=== PATIENT | female | born 1960 | race Caucasian/White ===

== ENCOUNTER 2016-09-26 17:27 | Inpatient (IN) | payer MEDICARE, OTHER ==
[~2016-09-26] VITALS: Ht 152.4 cm; Wt 75.0 kg
[2016-09-26] VITALS (7 sets, daily range): BP systolic 110–126; BP diastolic 68–84; PULSE 91–112; RESP 15–28; TEMP 98.1–98.2; O2SAT 88–96
[~2016-09-26 17:27] MED LIST: ALBU0.08 NEB; ALBUAER3 INH; CYCL1TAB29 PO; DIAZ5TAB PO; DOXY100C PO; FLUT50SP EACH NARE; GABA300C5 PO; HYDR-3533 PO; METF500T PO; PRED20 PO; SIMV40TA PO; SYMB160A INH
[2016-09-26] MEDS ORDERED: methylPREDNISolone SOD SUCC 125 MG/2 ML VIAL IV PUSH ONE (17:45)
[2016-09-26] MEDS ORDERED: SODIUM CHLORIDE 0.9% FLUSH 5 ML FLUSH IVF PRN (17:45)
[2016-09-26] MEDS ORDERED: AZITHROMYCIN 250 MG TAB PO ONE (17:45)
--- NOTE | 2016-09-26 17:58 | PD ---
HPI Chief Complaint: Respiratory Symptoms Time Seen by Provider: 17:40 Travel History International Travel<30 days: No Contact w/Intl Traveler<30days: No Traveled to known affect area: No History of Present Illness HPI This is a 56-year-old female who has a history of asthma who presents to the emergency department with 3 days of increasing shortness of breath, worse with exertion, improved with rest, associated with a productive cough with yellow sputum. She denies any fevers or chills. She says she's been having a lot of pain and discomfort in her chest particularly with coughing. She feels like her chest is tight. She's been using her bronchodilator treatments but they've not been helping. She did recently complete a course of prednisone. She has been intubated in the past in the setting of her asthma. PFSH Past Medical History Hx Anticoagulant Therapy: No Arthritis: Yes Asthma: Yes Blood Disorders: No Cancer: Yes (RT BREAST WITH lumpectomy) Cardiovascular Problems: No High Cholesterol: Yes Chemotherapy: Yes (9 YEARS AGO) Chest Pain: No Cerebrovascular Accident: No Diabetes: No Diminished Hearing: No Endocrine: No Immune Disorder: No Musculoskeletal: No Neurologic: No Respiratory: Yes (ASTHMA) Immunizations Current: Yes Pneumonia: Yes Radiation Therapy: Yes (breast ca) Menopausal: Yes Past Surgical History Abdominal Surgery: Yes (HERNIA REPAIR) Hysterectomy: No Other Surgery: Yes (right lumpectomy) Social History Alcohol Use: No Tobacco Use: No Substance Use: No Allergies-Medications (Allergen,Severity, Reaction): Coded Allergies: Sulfa (Verified Allergy, Severe, SOB, 09/26/16) rash all over body Vibramycin (Verified Allergy, Severe, ANAPHALACTIC, 09/26/16) Morphine (Verified Allergy, Intermediate, vomiting, 09/26/16) Penicillin (Verified Allergy, Intermediate, Rash, 09/26/16) Tetracycline (Verified Allergy, Intermediate, Rash, 09/26/16) Reported Meds & Prescriptions Reported Meds & Active Scripts Active Lortab (Hydrocodone-Acetaminophen) 5-325 Mg Tab 1 Tab PO DAILY PRN Do not fill until September 27, 2016. Gabapentin 300 Mg Cap 300 Mg PO TID Diazepam 5 Mg Tab 5 Mg PO TID PRN Flexeril (Cyclobenzaprine HCl) 10 Mg Tab 5 Mg PO TID PRN Tale 1/2 pill as needed for muscle spasm Metformin (Metformin HCl) 500 Mg Tab 500 Mg PO DAILY With a meal Reported Albuterol Neb (Albuterol Sulfate) 2.5 Mg/3 Ml Neb 2.5 Mg NEB Q4HR NEB While awake Proair Hfa 8.5 GM Inh (Albuterol Sulfate) 90 Mcg/Act Aer 1 Puff INH Q6HR PRN 108 mcg/actuation Fluticasone Nasal [place] 50 Mcg/Act Naspr 50 Mcg EACH NARE 1-2 SPRAYS NA DAILY 50 mcg/spray Simvastatin 40 Mg Tab 40 Mg PO HS Symbicort Inh (Budesonide/Formoterol Fumarate) 160-4.5 Mcg/Act Aero 2 Puff INH Q12HR Review of Systems Except as stated in HPI: all other systems reviewed are Neg Physical Exam Narrative GENERAL:Uncomfortable appearing SKIN: Warm and dry. HEAD: Atraumatic. Normocephalic. EYES: Pupils equal and round. No injection or drainage. ENT: Moist mucous membranes NECK: Trachea midline. CARDIOVASCULAR: Regular rate and rhythm. No murmur appreciated. RESPIRATORY: Tachypneic speaking 2-3 word sentences, diffuse wheezing, poor air movement. GASTROINTESTINAL: Abdomen soft, non-tender, nondistended. MUSCULOSKELETAL: No obvious deformities. NEUROLOGICAL: Awake and alert. No obvious cranial nerve deficits. Moving all extremities. PSYCHIATRIC: Appropriate mood and affect; insight and judgment normal. Data Data Last Documented VS Vital Signs Date Time Temp Pulse Resp B/P Pulse Ox O2 Delivery O2 Flow Rate FiO2 09/26/16 18:43 96 Nasal Cannula 2.50 09/26/16 18:30 24 09/26/16 18:30 120/84 120/75 09/26/16 17:38 110 09/26/16 17:29 98.2 Orders Electrocardiogram (09/26/16 17:45) B-Type Natriuretic Peptide (09/26/16 17:45) Complete Blood Count With Diff (09/26/16 17:45) Comprehensive Metabolic Panel (09/26/16 17:45) Magnesium (Mg) (09/26/16 17:45) Prothrombin Time / Inr (Pt) (09/26/16 17:45) Act Partial Throm Time (Ptt) (09/26/16 17:45) Troponin I (09/26/16 17:45) Chest, Single Ap (09/26/16 17:45) Ecg Monitoring (09/26/16 17:45) Bilateral Bp Monitoring (09/26/16 17:45) Iv Access Insert/Monitor (09/26/16 17:45) Oximetry (09/26/16 17:45) Oxygen Administration (09/26/16 17:45) Sodium Chloride 0.9% Flush (Ns Flush) (09/26/16 17:45) Methylprednisolone So Succ Inj (Solumedr (09/26/16 17:45) Albuterol-Ipratropium Neb (Duoneb Neb) (09/26/16 17:45) Azithromycin (Zithromax) (09/26/16 17:45) Acetamin-Hydrocod 325-5 Mg ([place] 5-325 (09/26/16 18:45) MDM Medical Decision Making Medical Screen Exam Complete: Yes Emergency Medical Condition: Yes Interpretation(s) EKG: Normal sinus rhythm with no ST changes Last 24 hours Impressions Chest X-Ray 09/26/16 8183 Signed Impressions: Service Date/Time: Monday, September 26, 2016 18:02 - CONCLUSION: Trace right base atelectasis. Mild, chronic interstitial disease. Low Almazan MD Differential Diagnosis COPD exacerbation, pneumonia, pneumothorax, pulmonary embolism Narrative Course This is a 56-year-old female who has a history of asthma who presents to the emergency department with shortness of breath. Patient is very tight on initial exam with an oxygen saturation of 88% on room air. She was given serial DuoNeb's, steroids and azithromycin. Labs were obtained which are pending. Patient requires reassessment. I think she is likely going to require admission for COPD exacerbation. Luann Varela MD Sep 26, 2016 17:58
--- NOTE | 2016-09-26 18:10 | RADRPT ---
EXAM DATE/TIME: 09/26/2016 18:02 [facility] COMPARISON: CHEST SINGLE AP, June 03, 2016, 13:19. INDICATIONS : Chest pain. MEDICAL HISTORY : Carcinoma, breast. Asthma. SURGICAL HISTORY : Hernia repair. Right lumpectomy. ENCOUNTER: Initial ACUITY: 1 week PAIN SCORE: 7/10 LOCATION: Bilateral chest FINDINGS: There is trace atelectasis at the right base superimposed on mild, chronic appearing basilar predomin ant interstitial opacities. No dense or confluent consolidation. No pleural effusion or pneumothorax. Heart size stable to within normal limits. CONCLUSION: Trace right base atelectasis. Mild, chronic interstitial disease. Low Almazan MD on September 26, 2016 at 18:08 Board Certified Radiologist. This report was verified electronically.
[2016-09-26] MEDS: RESP: ALBUTEROL 2.5 MG/IPRATROPIUM 0.5 MG NEB (SCH) INH ×4 (18:23→23:51)
[2016-09-26] MEDS ORDERED: ACETAMINOPHEN/HYDROcodone 325 MG/5 MG TAB PO ONE (18:45)
[2016-09-26 19:09] LABS: AUTOMATED NEUTROPHIL # 11.6 TH/MM3 (1.8-7.7); BASOPHIL # 0.1 TH/MM3 (0-0.2); BASOPHIL % 0.4 % (0.0-2.0); EOSINOPHIL # 0.2 TH/MM3 (0-0.4); EOSINOPHIL % 1.3 % (0.0-4.0); HEMO FLAGS DIFF FINAL; LYMPH % 15.6 % (9.0-44.0); LYMPHOCYTE # 2.3 TH/MM3 (1.0-4.8); MEAN CELL VOLUME 83.9 FL (80.0-100.0); MEAN CORPUSCULAR HEMOGLOBIN 26.8 PG (27.0-34.0); MONO % 5.1 % (0.0-8.0); NEUT % 77.6 % (16.0-70.0); PLATELET COUNT 350 TH/MM3 (150-450); RED BLOOD COUNT 4.29 MIL/MM3 (4.00-5.30); RED CELL DISTRIBUTION WIDTH 16.2 % (11.6-17.2)
[2016-09-26 19:15] LABS: APTT (PATIENT) 30.1 SEC (24.3-30.1); INTERNATIONAL NORMALIZED RATIO 0.9 RATIO; PROTHROMBIN TIME - PATIENT 10.4 SEC (9.8-11.6)
[2016-09-26 19:30] LABS: ANION GAP 9 MEQ/L (5-15); AST (GOT) 13 U/L (15-37); BICARBONATE 29.2 MEQ/L (21.0-32.0); BLOOD UREA NITROGEN 24 MG/DL (7-18); CHLORIDE 99 MEQ/L (98-107); GLOMERULAR FILTRATION RATE 50 ML/MIN (>89); MAGNESIUM 1.6 MG/DL (1.5-2.5); POTASSIUM 4.3 MEQ/L (3.5-5.1); SODIUM (NA) 137 MEQ/L (136-145)
[2016-09-26 19:32] LABS: ALKALINE PHOSPHATASE 122 U/L (45-117); ALT (GPT) 16 U/L (10-53); TOTAL BILIRUBIN ADULT 0.1 MG/DL (0.2-1.0)
--- NOTE | 2016-09-26 20:30 | PD ---
Data Data Last Documented VS Vital Signs Date Time Temp Pulse Resp B/P Pulse Ox O2 Delivery O2 Flow Rate FiO2 09/26/16 20:13 103 27 121/78 92 Nasal Cannula 3 09/26/16 17:29 98.2 Orders Electrocardiogram (09/26/16 17:45) B-Type Natriuretic Peptide (09/26/16 17:45) Complete Blood Count With Diff (09/26/16 17:45) Comprehensive Metabolic Panel (09/26/16 17:45) Magnesium (Mg) (09/26/16 17:45) Prothrombin Time / Inr (Pt) (09/26/16 17:45) Act Partial Throm Time (Ptt) (09/26/16 17:45) Troponin I (09/26/16 17:45) Chest, Single Ap (09/26/16 17:45) Ecg Monitoring (09/26/16 17:45) Bilateral Bp Monitoring (09/26/16 17:45) Iv Access Insert/Monitor (09/26/16 17:45) Oximetry (09/26/16 17:45) Oxygen Administration (09/26/16 17:45) Sodium Chloride 0.9% Flush (Ns Flush) (09/26/16 17:45) Methylprednisolone So Succ Inj (Solumedr (09/26/16 17:45) Albuterol-Ipratropium Neb (Duoneb Neb) (09/26/16 17:45) Azithromycin (Zithromax) (09/26/16 17:45) Acetamin-Hydrocod 325-5 Mg ([place] 5-325 (09/26/16 18:45) Admit Order (Ed Use Only) (09/26/16 20:28) Labs Laboratory Tests Test 09/26/16 18:35 White Blood Count 15.0 TH/MM3 Red Blood Count 4.29 MIL/MM3 Hemoglobin 11.5 GM/DL Hematocrit 36.0 % Mean Corpuscular Volume 83.9 FL Mean Corpuscular Hemoglobin 26.8 PG Mean Corpuscular Hemoglobin 32.0 % Concent Red Cell Distribution Width 16.2 % Platelet Count 350 TH/MM3 Mean Platelet Volume 7.8 FL Neutrophils (%) (Auto) 77.6 % Lymphocytes (%) (Auto) 15.6 % Monocytes (%) (Auto) 5.1 % Eosinophils (%) (Auto) 1.3 % Basophils (%) (Auto) 0.4 % Neutrophils # (Auto) 11.6 TH/MM3 Lymphocytes # (Auto) 2.3 TH/MM3 Monocytes # (Auto) 0.8 TH/MM3 Eosinophils # (Auto) 0.2 TH/MM3 Basophils # (Auto) 0.1 TH/MM3 CBC Comment DIFF FINAL Differential Comment Prothrombin Time 10.4 SEC Prothromb Time International 0.9 RATIO Ratio Activated Partial 30.1 SEC Thromboplast Time Sodium Level 137 MEQ/L Potassium Level 4.3 MEQ/L Chloride Level 99 MEQ/L Carbon Dioxide Level 29.2 MEQ/L Anion Gap 9 MEQ/L Blood Urea Nitrogen 24 MG/DL Creatinine 1.12 MG/DL Estimat Glomerular Filtration 50 ML/MIN Rate Random Glucose 99 MG/DL Calcium Level 8.5 MG/DL Magnesium Level 1.6 MG/DL Total Bilirubin 0.1 MG/DL Aspartate Amino Transf 13 U/L (AST/SGOT) Alanine Aminotransferase 16 U/L (ALT/SGPT) Alkaline Phosphatase 122 U/L Troponin I LESS THAN 0.02 NG/ML B-Type Natriuretic Peptide 44 PG/ML Total Protein 7.0 GM/DL Albumin 2.9 GM/DL [facility] Medical Record Reviewed: Yes Supervised Visit with JOCELYNN: No Narrative Course CBC & BMP Diagram 09/26/16 18:35 Albumin 2.9 LFTs grossly unremarkable otherwise Troponin less than 0.02 BNP 44 Last 24 hours Impressions Chest X-Ray 09/26/16 1427 Signed Impressions: Service Date/Time: Monday, September 26, 2016 18:02 - CONCLUSION: Trace right base atelectasis. Mild, chronic interstitial disease. Low Almazan MD Patient will be admitted for oxygen and breathing treatments. Discussed with Dr. Kilpatrick for family medicine residents. Diagnosis Primary Impression: Asthma Qualified Code: J45.909 - Uncomplicated asthma, unspecified asthma severity Additional Impressions: Wheezing Hypoxemia Admitting Information Admitting Physician Requests: Admit Bharat Weaver MD Sep 26, 2016 20:30
--- NOTE | 2016-09-26 21:04 | HHI.HP ---
HPI Service Family Medicine Primary Care Physician Jose Johnson MD Admission Diagnosis Wheezing, Hypoxemia Diagnoses: International Travel<30 Days: No Contact w/Intl Traveler<30days: No Known Affected Area: No History of Present Illness Patient is a 56-year-old female with a PMH significant for asthma and diabetes. Present here today due to shortness of breath that has progressively worsened over the last few days. Patient reports seeing PCP about 4 days ago at which time she was treated with an antibiotic and prednisone for a cough. She continued to have symptoms despite medications. Today when she was picking up items she felt an acute worsening of her SOB. She also endorses chest pain which she describes as a sour feeling in the epigastric region. No radiation. She also endorses diaphoresis and feelings of nausea but without vomiting. However she claims that the symptoms do not occur at the same time. Of note, per review of ED physician's note, patient has a history of requiring intubation but patient denies this. She only reports requiring intubation when she went back for surgery. Review of Systems Constitutional: COMPLAINS OF: Diaphoretic episodes, Fatigue, Chills, DENIES: Change in appetite Ears, nose, mouth, throat: DENIES: Throat pain, Running Nose Respiratory: COMPLAINS OF: Cough, Shortness of breath, DENIES: Hemoptysis, Sputum production Cardiovascular: COMPLAINS OF: Chest pain, DENIES: Palpitations, Lower Extremity Edema, Orthopnea Gastrointestinal: COMPLAINS OF: Nausea, DENIES: Abdominal pain, Diarrhea, Vomiting Genitourinary: COMPLAINS OF: Urinary frequency Musculoskeletal: COMPLAINS OF: Back pain Integumentary: DENIES: Rash Neurologic: DENIES: Headache Past Family Social History Past Medical History Right breast cancer diagnosed in 2006-being followed by Dr. Smith of [facility] Chronic Low Back Pain DM Asthma Neuropathy Past Surgical History Abdominal Hernia repair -3 different hernia repairs Right breast lumpectomy with removal of axillary lymph nodes Appendectomy Throat operation (polyp removal) Repair of a deviated septum Reported Medications Reported Meds & Active Scripts Active Lortab (Hydrocodone-Acetaminophen) 5-325 Mg Tab 1 Tab PO DAILY PRN Do not fill until September 27, 2016. Gabapentin 300 Mg Cap 300 Mg PO TID Diazepam 5 Mg Tab 5 Mg PO TID PRN Flexeril (Cyclobenzaprine HCl) 10 Mg Tab 5 Mg PO TID PRN Tale 1/2 pill as needed for muscle spasm Metformin (Metformin HCl) 500 Mg Tab 500 Mg PO DAILY With a meal Reported Albuterol Neb (Albuterol Sulfate) 2.5 Mg/3 Ml Neb 2.5 Mg NEB Q4HR NEB While awake Proair Hfa 8.5 GM Inh (Albuterol Sulfate) 90 Mcg/Act Aer 1 Puff INH Q6HR PRN 108 mcg/actuation Fluticasone Nasal [place] 50 Mcg/Act Naspr 50 Mcg EACH NARE 1-2 SPRAYS NA DAILY 50 mcg/spray Simvastatin 40 Mg Tab 40 Mg PO HS Symbicort Inh (Budesonide/Formoterol Fumarate) 160-4.5 Mcg/Act Aero 2 Puff INH Q12HR Allergies: Coded Allergies: Sulfa (Verified Allergy, Severe, SOB, 09/26/16) rash all over body Vibramycin (Verified Allergy, Severe, ANAPHALACTIC, 09/26/16) Morphine (Verified Allergy, Intermediate, vomiting, 09/26/16) Penicillin (Verified Allergy, Intermediate, Rash, 09/26/16) Tetracycline (Verified Allergy, Intermediate, Rash, 09/26/16) Family History Mother - at age 95 from natural causes Father - at age 60 from [facility]. Social History Lives with Sister Alcohol: denies Tobacco: denies Illicit: denies Physical Exam Vital Signs Vital Signs Date Time Temp Pulse Resp B/P Pulse Ox O2 Delivery O2 Flow Rate FiO2 09/26/16 20:13 103 27 121/78 92 Room Air 09/26/16 19:37 107 27 93 Nasal Cannula 3 09/26/16 19:36 107 25 110/69 93 Room Air 09/26/16 18:43 96 Nasal Cannula 2.50 09/26/16 18:30 95 Nasal Cannula 2 09/26/16 18:30 24 95 2 09/26/16 18:30 120/84 120/75 09/26/16 17:38 110 28 95 Nasal Cannula 2 09/26/16 17:29 98.2 112 28 117/77 88 Room Air Physical Exam GENERAL: This is a well-nourished female in obvious discomfort. Speaking in short sentences. SKIN: No rashes, ecchymoses or lesions. Cool and dry. EYES: Pupils equal round and reactive. Extraocular motions intact. No scleral icterus. No injection or drainage. ENT: Nose without bleeding, purulent drainage. Throat without erythema, tonsillar hypertrophy or exudate. Uvula midline. Airway patent. NECK:No lymphadenopathy. Supple, nontender, no meningeal signs. CARDIOVASCULAR: Regular rate and rhythm without murmurs, gallops, or rubs. RESPIRATORY: Decreased air movement bilaterally with intermittent expiratory wheezes. No rubs or crackles. GASTROINTESTINAL: Abdomen soft, obese. Mild suprapubic tenderness. No guarding. MUSCULOSKELETAL: Extremities without clubbing, cyanosis, or edema. No calf tenderness. NEUROLOGICAL: Awake and alert. Motor and sensory grossly within normal limits. Normal speech. Laboratory Laboratory Tests Test 09/26/16 18:35 White Blood Count 15.0 Red Blood Count 4.29 Hemoglobin 11.5 Hematocrit 36.0 Mean Corpuscular Volume 83.9 Mean Corpuscular Hemoglobin 26.8 Mean Corpuscular Hemoglobin 32.0 Concent Red Cell Distribution Width 16.2 Platelet Count 350 Mean Platelet Volume 7.8 Neutrophils (%) (Auto) 77.6 Lymphocytes (%) (Auto) 15.6 Monocytes (%) (Auto) 5.1 Eosinophils (%) (Auto) 1.3 Basophils (%) (Auto) 0.4 Neutrophils # (Auto) 11.6 Lymphocytes # (Auto) 2.3 Monocytes # (Auto) 0.8 Eosinophils # (Auto) 0.2 Basophils # (Auto) 0.1 CBC Comment DIFF FINAL Differential Comment Prothrombin Time 10.4 Prothromb Time International 0.9 Ratio Activated Partial 30.1 Thromboplast Time Sodium Level 137 Potassium Level 4.3 Chloride Level 99 Carbon Dioxide Level 29.2 Anion Gap 9 Blood Urea Nitrogen 24 Creatinine 1.12 Estimat Glomerular Filtration 50 Rate Random Glucose 99 Calcium Level 8.5 Magnesium Level 1.6 Total Bilirubin 0.1 Aspartate Amino Transf 13 (AST/SGOT) Alanine Aminotransferase 16 (ALT/SGPT) Alkaline Phosphatase 122 Troponin I LESS THAN 0.02 B-Type Natriuretic Peptide 44 Total Protein 7.0 Albumin 2.9 Result Diagram: 09/26/16183409/26/165 Imaging Last Impressions Chest X-Ray 09/26/16 9945 Signed Impressions: Service Date/Time: Monday, September 26, 2016 18:02 - CONCLUSION: Trace right base atelectasis. Mild, chronic interstitial disease. Low Almazan MD Assessment and Plan Assessment and Plan 56-year-old female with PMH significant for DM, asthma. Admitted for asthma exacerbation. Code Status Full Problem List: (1) Asthma Status: Acute Plan: Presented with acute exacerbation of asthma that was associated with tachypnea and oxygen saturation down to 88% on room air. Symptoms have progressively worsened over one week despite antibiotic and prednisone treatment. Physical exam significant for patient speaking in short sentences and decreased air movement bilaterally on lung exam. Due to this questionable concerned about intubation and patient looking in acute respiratory distress, recommended patient go to the ICU in case intubation is needed. -VBG reassuring with a pH of 7.42. PCO2 of 44 and bicarbonate of 29 -Leukocytosis present but chest x-ray unremarkable -ACS evaluation due to associated chest pain and nausea * cardiac telemetry -D-dimer negative -Patient may need to consider PFTs as an outpatient and/or CT Imaging: * CXR: Trace right base atelectasis. Mild, chronic interstitial disease Medications: * Solu-Medrol 1251 in the ED * Solu-Medrol 40 mg IV q8 * Albuterol and Duonebs * Symbicort * Levaquin (09/27- * Azithromycin 500 mg 1 in ED (2) Hypoxemia Status: Acute Plan: See treatment plan above (3) Urinary hesitancy Status: Acute Plan: Symptoms of UTI including urinary hesitancy and mild suprapubic tenderness. -UA ordered but not yet obtained prior to antibiotics -Antibiotic treatment for respiratory status will also cover UTI. (4) Nutrition, metabolism, and development symptoms Status: Acute Plan: Diet: Diabetic Fluids: None Electrolytes: Unremarkable, continue to monitor DVT prophylaxis: Lovenox GI prophylaxis: Protonix Chronic medical conditions: * Diabetes mellitus: Insulin sliding scale * HLD: Continue on pravastatin * Chronic back pain: Flexeril and [place] * Peripheral neuropathy: Gabapentin Physician Certification 2 Midnight Certification Type: Admission for Inpatient Services Order for Inpatient Services The services are ordered in accordance with Medicare regulations or non- Medicare payer requirements, as applicable. In the case of services not specified as inpatient-only, they are appropriately provided as inpatient services in accordance with the 2-midnight benchmark. Estimated LOS (days): 2 days is the estimated time the patient will need to remain in the hospital, assuming treatment plan goals are met and no additional complications. Post-Hospital Plan: Home Problem Qualifiers (1) Asthma: Qualified Code: J45.909 - Uncomplicated asthma, unspecified asthma severity Day Alonso MD R2 Sep 26, 2016 21:04
[2016-09-26] MEDS ORDERED: ACETAMINOPHEN/HYDROcodone 325 MG/5 MG TAB PO PRN (21:30)
[2016-09-26] MEDS ORDERED: ENALAPRILAT 1.25 MG/ML VIAL IV PRN (22:00)
[2016-09-26] MEDS ORDERED: ONDANSETRON HCL 4 MG/2 ML VIAL IVP PRN (22:00)
[2016-09-26] MEDS ORDERED: NALOXONE HCL 0.4 MG/ML AMP IV PRN (22:00)
[2016-09-26] MEDS ORDERED: SODIUM CHLORIDE 0.9% FLUSH 5 ML FLUSH FLUSH PRN (22:00)
[2016-09-26] MEDS ORDERED: RESP: ALBUTEROL 2.5 MG/3 ML NEB (PRN) INH (22:00)
[2016-09-26] MEDS: ENOXAPARIN SODIUM 40 MG/0.4 ML SYRINGE SQ SCH (22:16)
[2016-09-26 23:19] LABS: BLOOD GAS VENOUS BASE EXCESS 4.3 mmol/L (-2-2); BLOOD GAS VENOUS HCO3 29 mmol/L (22-26); BLOOD GAS VENOUS O2 CONTENT 13.3 Vol % (9.0-17.0); BLOOD GAS VENOUS O2 HGB SAT 75 % (70-76); BLOOD GAS VENOUS PCO2 44 mmHg (44-48); BLOOD GAS VENOUS PO2 43 mmHg (35-40); BLOOD GAS VENOUS pH 7.42 (7.360-7.400); CRITICAL VALUE NO; OXYGEN DEVICE NASAL CANNULA; TEMP CORR TO 98.6
[2016-09-26 23:20] LABS: LITER FLOW 2 L/M; STAT NO
[2016-09-27] VITALS (8 sets, daily range): BP systolic 118–132; BP diastolic 65–82; PULSE 93–115; RESP 18–20; TEMP 97–98.1; O2SAT 91–95
[2016-09-27] MEDS ORDERED: RESP: ALBUTEROL 2.5 MG/3 ML NEB (SCH) INH
[2016-09-27] MEDS ORDERED: ACETAMINOPHEN 325 MG TAB PO PRN (00:15)
[2016-09-27] MEDS ORDERED: NALOXONE HCL 0.4 MG/ML AMP IV PRN (00:15)
[2016-09-27] MEDS: DIAZEPAM 5 MG TAB PO PRN ×3 (00:27→18:31)
[2016-09-27] MEDS ORDERED: GLUCAGON 1 MG/ML VIAL OTHER PRN (01:30)
[2016-09-27] MEDS ORDERED: DEXTROSE 50% IN WATER 50 ML VIAL(D50) IV PUSH PRN (01:30)
[2016-09-27] MEDS: RESP: ALBUTEROL 2.5 MG/IPRATROPIUM 0.5 MG NEB (SCH) INH ×6 (03:48→23:54)
[2016-09-27] MEDS: methylPREDNISolone SOD SUCC 40 MG/1 ML VIAL IV PUSH SCH ×3 (05:38→20:08)
[2016-09-27] MEDS: ACETAMINOPHEN/HYDROcodone 325 MG/10 MG TAB PO PRN ×4 (05:39→20:07)
[2016-09-27] MEDS: INSULIN ASPART SUPPLEMENTAL SCALE SQ SCH ×4 (05:59→20:08)
[2016-09-27 06:13] LABS: BLOOD, URINE NEG (NEG); GLUCOSE,URINE NEG (NEG); KETONE, URINE NEG (NEG); NITRITE,URINE NEG (NEG); PH, URINE 6.5 (5.0-8.5); SQUAMOUS EPITHELIAL CELL URINE 7 /hpf (0-5); TRANSITIONAL EPI CELLS, URINE 7 /hpf; URINE COLOR YELLOW (YELLW/STRAW)
[2016-09-27 06:14] LABS: COMMENT (UR) CULTURE INDICATED; CULTURE IF INDICATED CULTURE INDICATED
[2016-09-27 07:32] LABS: AUTOMATED NEUTROPHIL # 9.3 TH/MM3 (1.8-7.7); BASOPHIL % 0.1 % (0.0-2.0); HEMATOCRIT 36.4 % (35.0-46.0); HEMO FLAGS DIFF FINAL; LYMPHOCYTE # 0.9 TH/MM3 (1.0-4.8); MEAN CELL VOLUME 83.9 FL (80.0-100.0); MEAN CORPUSCULAR HEMOGLOBIN 26.8 PG (27.0-34.0); MEAN CORPUSCULAR HGB CONC 31.9 % (32.0-36.0); MONO % 0.6 % (0.0-8.0); NEUT % 90.3 % (16.0-70.0); PLATELET COUNT 365 TH/MM3 (150-450); RED BLOOD COUNT 4.34 MIL/MM3 (4.00-5.30); RED CELL DISTRIBUTION WIDTH 16.5 % (11.6-17.2); WHITE BLOOD COUNT 10.3 TH/MM3 (4.0-11.0)
[2016-09-27 07:41] LABS: ANION GAP 11 MEQ/L (5-15); BICARBONATE 28.4 MEQ/L (21.0-32.0); BLOOD UREA NITROGEN 21 MG/DL (7-18); CHLORIDE 100 MEQ/L (98-107); GLOMERULAR FILTRATION RATE 52 ML/MIN (>89); POTASSIUM 4.4 MEQ/L (3.5-5.1); SODIUM (NA) 139 MEQ/L (136-145)
[2016-09-27] MEDS: PANTOPRAZOLE SOD 40 MG DELAYED RELEASE TAB PO SCH (09:30)
[2016-09-27] MEDS: GABAPENTIN 300 MG CAP PO SCH ×2 (09:31→20:07)
[2016-09-27] MEDS: LEVOFLOXACIN 750 MG TAB PO SCH (09:31)
[2016-09-27] MEDS: SODIUM CHLORIDE 0.9% FLUSH 5 ML FLUSH FLUSH SCH ×2 (09:31→20:08)
[2016-09-27] MEDS ORDERED: MONTELUKAST SODIUM 10 MG TAB PO ONE (10:00)
--- NOTE | 2016-09-27 10:45 | EKG ---
Date Performed: 09/26/2016 Time Performed: 18:45:47 PTAGE: 56 years EKG: SINUS TACHYCARDIA ABNORMAL RHYTHM ECG Compared to prior tracing no significant change PREVIOUS TRACING : 06/03/2016 13.03 DOCTOR: Otoniel Koch Interpretating Date/Time 09/27/2016 10:43:07
--- NOTE | 2016-09-27 10:46 | EKG ---
Date Performed: 09/27/2016 Time Performed: 05:23:08 PTAGE: 56 years EKG: Sinus rhythm WITH FREQUENT SUPRAVENTRICULAR PREMATURE COMPLEXES ABNORMAL RHYTHM ECG Compared to prior tracing no significant change PREVIOUS TRACING : 09/27/2016 01.03 DOCTOR: Otoniel Koch Interpretating Date/Time 09/27/2016 10:43:29
--- NOTE | 2016-09-27 10:46 | EKG ---
Date Performed: 09/27/2016 Time Performed: 01:03:31 PTAGE: 56 years EKG: Sinus rhythm WITH FREQUENT SUPRAVENTRICULAR PREMATURE COMPLEXES ABNORMAL RHYTHM ECG Compared to prior tracing no significant change PREVIOUS TRACING : 09/26/2016 18.45 DOCTOR: Otoniel Koch Interpretating Date/Time 09/27/2016 10:43:17
[2016-09-27] MEDS: BUDESONIDE-FORMOTEROL 160/4.5 MCG INHALER INH SCH ×2 (11:54→21:00)
--- NOTE | 2016-09-27 12:20 | HHI.HP ---
[facility] Service Family Medicine Primary Care Physician Jose Johnson MD Admission Diagnosis Wheezing, Hypoxemia Diagnoses: (1) Asthma Diagnosis: Principal (2) Hypoxemia Diagnosis: Principal (3) Urinary hesitancy Diagnosis: Principal (4) Nutrition, metabolism, and development symptoms Diagnosis: Principal International Travel<30 Days: No Contact w/Intl Traveler<30days: No Known Affected Area: No History of Present Illness Ms Caldwell is a 56-year-old female with a PMH significant for asthma and diabetes. Present here today due to shortness of breath that has progressively worsened over the last few days. Patient reports seeing PCP about 4 days before admission at which time she was treated with an antibiotic and prednisone for a cough. She continued to have symptoms despite medications. The day of admission when she was picking up items she felt an acute worsening of her SOB. She also endorsed chest pain which she describes as a sour feeling in the epigastric region. No radiation. She also endorsed diaphoresis and feelings of nausea but without vomiting. However she claims that the symptoms do not occur at the same time. Of note, per review of ED physician's note, patient has a history of requiring intubation but patient denies this. She only reports requiring intubation when she went back for surgery. 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 We discussed going to see a new Dr for her allergies as she has had increasing problems over the past months or years since her human resources department supervisor retired. She was using her home nebulizer prior to admission and still felt very SOB so that is what prompted her ED visit and admission. Overnight, the steroids have been helping and she is breathing more comfortably today though still with some SOB she can now speak in full sentences. She does not feel back to her baseline yet. Review of Systems Respiratory: COMPLAINS OF: Shortness of breath Cardiovascular: COMPLAINS OF: Chest pain, DENIES: Syncope Other Constitutional: COMPLAINS OF: Diaphoretic episodes, Fatigue, Chills, DENIES: Change in appetite Ears, nose, mouth, throat: DENIES: Throat pain, Running Nose Respiratory: COMPLAINS OF: Cough, Shortness of breath, DENIES: Hemoptysis, Sputum production Cardiovascular: COMPLAINS OF: Chest pain, DENIES: Palpitations, Lower Extremity Edema, Orthopnea Gastrointestinal: COMPLAINS OF: Nausea, DENIES: Abdominal pain, Diarrhea, Vomiting Genitourinary: COMPLAINS OF: Urinary frequency Musculoskeletal: COMPLAINS OF: Back pain Integumentary: DENIES: Rash Neurologic: DENIES: Headache Past Family Social History Past Medical History Right breast cancer diagnosed in 2006-being followed by Dr. Smith of [facility] Chronic Low Back Pain DM Asthma Neuropathy Past Surgical History Abdominal Hernia repair -3 different hernia repairs Right breast lumpectomy with removal of axillary lymph nodes Appendectomy Throat operation (polyp removal) Repair of a deviated septum Allergies: Coded Allergies: Sulfa (Verified Allergy, Severe, SOB, 09/26/16) rash all over body Vibramycin (Verified Allergy, Severe, ANAPHALACTIC, 09/26/16) Morphine (Verified Allergy, Intermediate, vomiting, 09/26/16) Penicillin (Verified Allergy, Intermediate, Rash, 09/26/16) Tetracycline (Verified Allergy, Intermediate, Rash, 09/26/16) Family History Mother - at age 95 from natural causes Father - at age 60 from [place]. Social History Lives with Sister Alcohol: denies Tobacco: denies Illicit: denies Physical Exam Vital Signs Vital Signs Date Time Temp Pulse Resp B/P Pulse Ox O2 Delivery O2 Flow Rate FiO2 09/27/16 10:07 92 Nasal Cannula 3.00 09/27/16 08:46 98.1 95 18 118/82 91 09/27/16 05:19 98.1 93 20 124/68 95 09/27/16 02:21 93 09/26/16 23:34 98.1 91 20 126/76 93 09/26/16 22:19 96 15 117/68 94 Nasal Cannula 3 09/26/16 20:13 103 27 121/78 92 Nasal Cannula 3 09/26/16 19:37 107 27 93 Nasal Cannula 3 09/26/16 19:36 107 25 110/69 93 Room Air 09/26/16 18:43 96 Nasal Cannula 2.50 09/26/16 18:30 95 Nasal Cannula 2 09/26/16 18:30 24 95 2 09/26/16 18:30 120/84 120/75 09/26/16 17:38 110 28 95 Nasal Cannula 2 09/26/16 17:29 98.2 112 28 117/77 88 Room Air Physical Exam GENERAL: This is a well-nourished female in obvious discomfort on admission. Speaking in short sentences in the ED originally however this am is able to speak normally though not able to walk in the saravia without SOB and still requiring oxygen. SKIN: No rashes, ecchymoses or lesions. Cool and dry. EYES: Pupils equal round and reactive. Extraocular motions intact. No scleral icterus. No injection or drainage. ENT: Nose without bleeding, purulent drainage. Airway patent. NECK:No lymphadenopathy. Supple, nontender, no meningeal signs. CARDIOVASCULAR: Regular rate and rhythm without murmurs, gallops, or rubs. RESPIRATORY: Decreased air movement bilaterally with intermittent expiratory wheezes. No rubs or crackles. Despite overnight treatment she still is not moving air very well but it is adequate at this point GASTROINTESTINAL: Abdomen soft, obese. Mild suprapubic tenderness. No guarding. MUSCULOSKELETAL: Extremities without clubbing, cyanosis, or edema. No calf tenderness. NEUROLOGICAL: Awake and alert. Motor and sensory grossly within normal limits. Normal speech. Laboratory Laboratory Tests Test 09/26/16 09/26/16 09/27/16 09/27/16 18:35 22:35 01:16 05:57 White Blood Count 15.0 10.3 Red Blood Count 4.29 4.34 Hemoglobin 11.5 11.6 Hematocrit 36.0 36.4 Mean Corpuscular Volume 83.9 83.9 Mean Corpuscular Hemoglobin 26.8 26.8 Mean Corpuscular Hemoglobin 32.0 31.9 Concent Red Cell Distribution Width 16.2 16.5 Platelet Count 350 365 Mean Platelet Volume 7.8 7.6 Neutrophils (%) (Auto) 77.6 90.3 Lymphocytes (%) (Auto) 15.6 9.0 Monocytes (%) (Auto) 5.1 0.6 Eosinophils (%) (Auto) 1.3 0.0 Basophils (%) (Auto) 0.4 0.1 Neutrophils # (Auto) 11.6 9.3 Lymphocytes # (Auto) 2.3 0.9 Monocytes # (Auto) 0.8 0.1 Eosinophils # (Auto) 0.2 0.0 Basophils # (Auto) 0.1 0.0 CBC Comment DIFF FINAL DIFF FINAL Differential Comment Prothrombin Time 10.4 Prothromb Time International 0.9 Ratio Activated Partial 30.1 Thromboplast Time Sodium Level 137 139 Potassium Level 4.3 4.4 Chloride Level 99 100 Carbon Dioxide Level 29.2 28.4 Anion Gap 9 11 Blood Urea Nitrogen 24 21 Creatinine 1.12 1.08 Estimat Glomerular Filtration 50 52 Rate Random Glucose 99 181 Calcium Level 8.5 9.0 Magnesium Level 1.6 Total Bilirubin 0.1 Aspartate Amino Transf 13 (AST/SGOT) Alanine Aminotransferase 16 (ALT/SGPT) Alkaline Phosphatase 122 Troponin I LESS THAN 0.02 LESS THAN 0.02 LESS THAN 0.02 B-Type Natriuretic Peptide 44 Total Protein 7.0 Albumin 2.9 Blood Gas Puncture Site Blood Gas Patient Temperature 98.6 Venous Blood pH 7.42 Venous Blood Partial Pressure 44 CO2 Venous Blood Partial Pressure 43 O2 Venous Blood HCO3 29 Venous Blood Oxygen Saturation 75 Venous Blood Oxygen Content 13.3 Venous Blood Base Excess 4.3 Oxygen Delivery Device NASAL CANNULA Blood Gas Liter Flow 2 D-Dimer Quantitative (PE/DVT) 0.21 Test 09/27/16 06:00 Urine Color YELLOW Urine Turbidity HAZY Urine pH 6.5 Urine Specific [place] 1.014 Urine Protein NEG Urine Glucose (UA) NEG Urine Ketones NEG Urine Occult Blood NEG Urine Nitrite NEG Urine Bilirubin NEG Urine Urobilinogen LESS THAN 2.0 Urine Leukocyte Esterase LARGE Urine RBC 8 Urine WBC 63 Urine Squamous Epithelial 7 Cells Urine Transitional Epithelial 7 Cells Urine Amorphous Sediment RARE Microscopic Urinalysis Comment CULTURE INDICATED Date/Time Procedure Status Source Growth 09/27/16 06:00 Urine Culture Received Urine Clean Catch Pending Result Diagram: 09/27/16 0557 09/27/16 0557 Imaging Last Impressions Chest X-Ray 09/26/16 7119 Signed Impressions: Service Date/Time: Monday, September 26, 2016 18:02 - CONCLUSION: Trace right base atelectasis. Mild, chronic interstitial disease. Low Almazan MD Assessment and Plan Assessment and Plan 56-year-old female with PMH significant for DM, asthma. Admitted for asthma exacerbation. Problem List: (1) Asthma Status: Acute Plan: Presented with acute exacerbation of asthma that was associated with tachypnea and oxygen saturation down to 88% on room air. Symptoms have progressively worsened over one week despite antibiotic and prednisone treatment. Physical exam significant for patient speaking in short sentences and decreased air movement bilaterally on lung exam on admission. Due to this questionable concerned about intubation and patient looking in acute respiratory distress, recommended patient go to the ICU in case intubation is needed. However, she turned around with steroids and is improved this am where she will not need to be intubated -VBG reassuring with a pH of 7.42. PCO2 of 44 and bicarbonate of 29 -Leukocytosis present but chest x-ray unremarkable -ACS evaluation due to associated chest pain and nausea * cardiac telemetry -D-dimer negative -Patient may need to consider PFTs as an outpatient and/or CT, consider peak flow Imaging: * CXR: Trace right base atelectasis. Mild, chronic interstitial disease Medications: * Solu-Medrol 1251 in the ED * Solu-Medrol 40 mg IV q8 * Albuterol and Duonebs * Symbicort * Levaquin (09/27- * Azithromycin 500 mg 1 in ED * can add additional meds for allergy/asthma like singulair * discussed consideration of going to human resources department supervisor as an outpt, she was doing better in the past (2) Hypoxemia Status: Acute Plan: See treatment plan above (3) Urinary hesitancy Status: Acute Plan: Symptoms of UTI including urinary hesitancy and mild suprapubic tenderness. -UA ordered but not yet obtained prior to antibiotics -Antibiotic treatment for respiratory status will also cover UTI. (4) Nutrition, metabolism, and development symptoms Status: Acute Plan: Diet: Diabetic Fluids: None Electrolytes: Unremarkable, continue to monitor DVT prophylaxis: Lovenox GI prophylaxis: Protonix Chronic medical conditions: * Diabetes mellitus: Insulin sliding scale * HLD: Continue on pravastatin * Chronic back pain: Flexeril and [place] * Peripheral neuropathy: Gabapentin Physician Certification 2 Midnight Certification Type: Admission for Inpatient Services Order for Inpatient Services The services are ordered in accordance with Medicare regulations or non- Medicare payer requirements, as applicable. In the case of services not specified as inpatient-only, they are appropriately provided as inpatient services in accordance with the 2-midnight benchmark. Estimated LOS (days): 3 3 days is the estimated time the patient will need to remain in the hospital, assuming treatment plan goals are met and no additional complications. Post-Hospital Plan: Home Problem Qualifiers (1) Asthma: Qualified Code: J45.901 - Asthma with acute exacerbation, unspecified asthma severity Kirti Magallon MD Sep 27, 2016 12:20
[2016-09-27] MEDS: CYCLOBENZAPRINE HCL 10 MG TAB PO PRN (18:31)
[2016-09-27] MEDS: ENOXAPARIN SODIUM 40 MG/0.4 ML SYRINGE SQ SCH (20:07)
[2016-09-27] MEDS: PRAVASTATIN SOD 80 MG TAB PO SCH (20:07)
[2016-09-28] VITALS (11 sets, daily range): BP systolic 109–154; BP diastolic 65–83; PULSE 103–119; RESP 18–20; TEMP 97.2–98.9; O2SAT 93–97
[2016-09-28] MEDS: ACETAMINOPHEN/HYDROcodone 325 MG/10 MG TAB PO PRN ×4 (00:46→19:58)
[2016-09-28] MEDS: RESP: ALBUTEROL 2.5 MG/IPRATROPIUM 0.5 MG NEB (SCH) INH ×4 (03:37→20:11)
[2016-09-28] MEDS: DIAZEPAM 5 MG TAB PO PRN ×3 (05:14→21:49)
[2016-09-28] MEDS: methylPREDNISolone SOD SUCC 40 MG/1 ML VIAL IV PUSH SCH (05:14)
[2016-09-28] MEDS: INSULIN ASPART SUPPLEMENTAL SCALE SQ SCH ×4 (06:01→19:59)
--- NOTE | 2016-09-28 08:06 | HHI.FPPN ---
Subjective Remarks Patient seen this morning. No acute events overnight. Did have 2L O2 requirement overnight to maintain sats in the low-to-mid 90s. She reports moderate improvement of SOB. Breathing is still not at baseline. She thinks she will require another day. No chest pain or palpitations. Denies any fever or chills. (Jarvis Miranda MD R3) Objective Vitals Vital Signs Date Time Temp Pulse Resp B/P Pulse Ox O2 Delivery O2 Flow Rate FiO2 09/28/16 07:44 96 Nasal Cannula 2.00 09/28/16 05:14 16 09/28/16 04:06 98.9 103 20 121/65 93 09/28/16 00:52 109 09/28/16 00:05 97.2 109 20 122/66 96 09/27/16 20:18 93 Nasal Cannula 2.00 09/27/16 19:38 97.6 112 20 125/79 94 09/27/16 16:00 97.0 115 18 132/65 92 09/27/16 12:00 97.1 102 18 129/71 93 09/27/16 10:07 92 Nasal Cannula 3.00 09/27/16 08:46 98.1 95 18 118/82 91 I/O 09/27/16 09/27/16 09/27/16 09/28/16 09/28/16 09/28/16 07:00 15:00 23:00 07:00 15:00 23:00 Intake Total 320 ml 480 ml Balance 320 ml 480 ml Intake Oral 320 ml 480 ml # Voids 1 2 2 # Bowel Movements 0 (Jarvis Miranda MD R3) Result Diagram: 09/27/16 0557 09/27/16 0557 Objective Remarks GENERAL: This is a well-nourished female in obvious discomfort on admission. Receiving breathing treatment at present. Sating in the mid-90s on 2L NC. SKIN: No rashes, ecchymoses or lesions. Cool and dry. EYES: Pupils equal round and reactive. Extraocular motions intact. No scleral icterus. No injection or drainage. ENT: Nose without bleeding, purulent drainage. Airway patent. NECK:No lymphadenopathy. Supple, nontender, no meningeal signs. CARDIOVASCULAR: Regular rate and rhythm without murmurs, gallops, or rubs. RESPIRATORY: Improved air movement, especially at the bases. Expiratory wheezes throughout, more pronounced compared to yesterday. No other adventitious sounds. GASTROINTESTINAL: Abdomen soft, obese. Mild suprapubic tenderness. No guarding. MUSCULOSKELETAL: Extremities without clubbing, cyanosis, or edema. No calf tenderness. 4/5 upper extremity strength. Needs assistance to rise to seated position. NEUROLOGICAL: Awake and alert. Motor and sensory grossly within normal limits. Normal speech. (Jarvis Miranda MD R3) A/P Assessment and Plan 56-year-old female with PMH significant for DM, asthma. Admitted for asthma exacerbation. Now with improving SOB on duoneb and IV steroids. Discharge Planning Likely DC home tomorrow. Will reevaluate this afternoon. Patient is weak and may need HH with PT. Will f/u PT this morning. Will discuss with Dr. Magallon. (Jarvis Miranda MD R3) Attending Attestation Patient seen and examined. Case reviewed and discussed with the resident team. Agree with plan of care as discussed with me and documented in the resident note. Improving slowly. (Kirti Magallon MD) Problem List: (1) Asthma Status: Acute Plan: Improving. VBG reassuring with normal pH. Leukocytosis on admission, now resolved. CXR normal. ACS r/o negative. -on solumedrol. Change to PO prednisone at this time. -cont duoneg q4 SUYAPA with accuneb PRN -cont levaquin (09/27-). Plan 7 day course. -singulair -symbicort at DC. Add pulmicort to start tonight. 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 UA is suspicious for UTI with large LE. -add azo for dysuria -f/u urine cx -cont levaquin. Change abx if indicated by urine cx. (3) Nutrition, metabolism, and development symptoms Status: Acute Plan: Diet: Diabetic Fluids: None Electrolytes: Unremarkable, continue to monitor DVT prophylaxis: Lovenox GI prophylaxis: Protonix Chronic medical conditions: * Diabetes mellitus: Insulin sliding scale * HLD: Continue on pravastatin * Chronic back pain: Flexeril and [place] * Peripheral neuropathy: Gabapentin (Jarvis Miranda MD R3) Problem Qualifiers (1) Asthma: Qualified Code: J45.901 - Asthma with acute exacerbation, unspecified asthma severity Jarvis Miranda MD R3 Sep 28, 2016 08:06 Kirti Magallon MD Sep 28, 2016 13:06
[2016-09-28] MEDS: GABAPENTIN 300 MG CAP PO SCH ×2 (08:22→19:58)
[2016-09-28] MEDS: LEVOFLOXACIN 750 MG TAB PO SCH (08:22)
[2016-09-28] MEDS: SODIUM CHLORIDE 0.9% FLUSH 5 ML FLUSH FLUSH SCH ×2 (08:22→19:58)
[2016-09-28] MEDS: PANTOPRAZOLE SOD 40 MG DELAYED RELEASE TAB PO SCH (08:22)
[2016-09-28] MEDS ORDERED: PHENAZOPYRIDINE HCL 200 MG TAB PO PRN (08:30)
[2016-09-28] MEDS: predniSONE 20 MG TAB PO SCH (09:04)
[2016-09-28] MEDS: BUDESONIDE-FORMOTEROL 160/4.5 MCG INHALER INH SCH ×2 (09:04→20:01)
[2016-09-28] MEDS: PRAVASTATIN SOD 80 MG TAB PO SCH (19:58)
[2016-09-28] MEDS: MONTELUKAST SODIUM 10 MG TAB PO SCH (19:58)
[2016-09-28] MEDS: ENOXAPARIN SODIUM 40 MG/0.4 ML SYRINGE SQ SCH (20:02)
[2016-09-28] MEDS: RESP: BUDESONIDE 0.5 MG/2 ML NEB NEB SCH (20:11)
[2016-09-28] MEDS ORDERED: traZODone HCL 50 MG TAB PO PRN (22:00)
[2016-09-29] MEDS: RESP: ALBUTEROL 2.5 MG/IPRATROPIUM 0.5 MG NEB (SCH) INH ×6 (00:17→20:13)
[2016-09-29 00:21] VITALS: O2SAT 99
[2016-09-29] MEDS: ACETAMINOPHEN/HYDROcodone 325 MG/10 MG TAB PO PRN ×3 (00:51→15:52)
[2016-09-29] MEDS: CYCLOBENZAPRINE HCL 10 MG TAB PO PRN ×2 (03:08→20:39)
[2016-09-29 03:51] VITALS: BP 126/76; PULSE 100; RESP 20; TEMP 97.6; O2SAT 96
[2016-09-29] MEDS: INSULIN ASPART SUPPLEMENTAL SCALE SQ SCH ×4 (06:04→20:39)
[2016-09-29 07:09] VITALS: BP 126/82; PULSE 103; RESP 20; TEMP 97.5; O2SAT 96
--- NOTE | 2016-09-29 08:17 | HHI.FPPN ---
Subjective Remarks Patient seen this morning. No acute events overnight. Vitals this AM essentially WNL. Patient states breathing is approaching her baseline. She feels she need another day before DC. Feels weak. This is new for her. She is walking with physical therapy, but otherwise staying in bed. No fever or chills. No nausea or vomiting. (Jarvis Miranda MD R3) Objective Vitals Vital Signs Date Time Temp Pulse Resp B/P Pulse Ox O2 Delivery O2 Flow Rate FiO2 09/29/16 07:09 97.5 103 20 126/82 96 09/29/16 03:51 97.6 100 20 126/76 96 09/29/16 02:04 16 09/29/16 00:21 99 3.00 09/28/16 23:55 97.6 108 20 154/83 97 09/28/16 20:11 95 Nasal Cannula 2.00 09/28/16 19:30 98.0 119 20 109/69 95 09/28/16 15:36 98.2 109 18 119/67 95 09/28/16 12:06 97.7 109 20 115/74 94 09/28/16 08:48 111 (Jarvis Miranda MD R3) Result Diagram: 09/27/16 0557 09/27/16 0557 Objective Remarks GENERAL: This is a well-nourished female in obvious discomfort on admission. Receiving breathing treatment at present. Sating 93% on room air. SKIN: No rashes, ecchymoses or lesions. Cool and dry. EYES: Pupils equal round and reactive. Extraocular motions intact. No scleral icterus. No injection or drainage. ENT: Nose without bleeding, purulent drainage. Airway patent. NECK:No lymphadenopathy. Supple, nontender, no meningeal signs. CARDIOVASCULAR: Regular rate and rhythm without murmurs, gallops, or rubs. RESPIRATORY: Improved air movement, especially at the bases. Expiratory wheezes throughout, improved compared to yesterday. No other adventitious sounds. GASTROINTESTINAL: Abdomen soft, obese. Mild suprapubic tenderness. No guarding. MUSCULOSKELETAL: Extremities without clubbing, cyanosis, or edema. No calf tenderness. 4/5 upper extremity strength. Needs assistance to rise to seated position. NEUROLOGICAL: Awake and alert. Motor and sensory grossly within normal limits. Normal speech. (Jarvis Miranda MD R3) A/P Assessment and Plan 56-year-old female with PMH significant for DM, asthma. Admitted for asthma exacerbation. Now with improving SOB on duoneb and PO steroids. Discharge Planning Likely DC home today. Will reevaluate this afternoon. Discuss with Dr. Magallon. (Jarvis Miranda MD R3) Attending Attestation Patient seen and examined. Case reviewed and discussed with the resident team. Agree with plan of care as discussed with me and documented in the resident note. she continues to improve daily but was very bad with her asthma and tight on admission so it is taking awhile to improve greatly where she does not need oxygen (Kirti Magallon MD) Problem List: (1) Asthma Status: Acute Plan: Improving. VBG reassuring with normal pH. Leukocytosis on admission, now resolved. CXR normal. ACS r/o negative. -PO prednisone daily. Plan for 5 days on steroids. -cont duoneg q4 SUYAPA with accuneb PRN -cont levaquin (09/27-). Plan 7 day course. -singulair -symbicort at [place]. Pulmicort here in the hospital. -may need gold cutter as outpatient -PT -will order OOB TID with nursing (2) Urinary hesitancy Status: Acute Plan: Symptoms of UTI including urinary hesitancy and mild suprapubic tenderness. UA is suspicious for UTI with large LE. -add azo for dysuria -urine cx negative -cont levaquin. (3) Nutrition, metabolism, and development symptoms Status: Acute Plan: Diet: Diabetic Fluids: None Electrolytes: Unremarkable, continue to monitor DVT prophylaxis: Lovenox GI prophylaxis: Protonix Chronic medical conditions: * Diabetes mellitus: Insulin sliding scale * HLD: Continue on pravastatin * Chronic back pain: Flexeril and [place] * Peripheral neuropathy: Gabapentin (Jarvis Miranda MD R3) Problem Qualifiers (1) Asthma: Qualified Code: J45.901 - Asthma with acute exacerbation, unspecified asthma severity Jarvis Miranda MD R3 Sep 29, 2016 08:17 Kirti Magallon MD Sep 30, 2016 12:55
[2016-09-29] MEDS: RESP: BUDESONIDE 0.5 MG/2 ML NEB NEB SCH ×2 (08:25→20:14)
[2016-09-29] MEDS: SODIUM CHLORIDE 0.9% FLUSH 5 ML FLUSH FLUSH SCH ×2 (08:28→20:38)
[2016-09-29] MEDS: BUDESONIDE-FORMOTEROL 160/4.5 MCG INHALER INH SCH ×2 (08:28→20:38)
[2016-09-29] MEDS: GABAPENTIN 300 MG CAP PO SCH ×2 (08:29→20:38)
[2016-09-29] MEDS: LEVOFLOXACIN 750 MG TAB PO SCH (08:29)
[2016-09-29] MEDS: PANTOPRAZOLE SOD 40 MG DELAYED RELEASE TAB PO SCH (08:29)
[2016-09-29] MEDS: predniSONE 20 MG TAB PO SCH (08:29)
[2016-09-29] MEDS: DIAZEPAM 5 MG TAB PO PRN (10:20)
[2016-09-29 11:14] VITALS: BP 116/71; PULSE 106; RESP 18; TEMP 98.5; O2SAT 91
[2016-09-29 15:27] VITALS: BP 98/59; PULSE 104; RESP 16; TEMP 98.1; O2SAT 94
[2016-09-29] MEDS: PRAVASTATIN SOD 80 MG TAB PO SCH (20:38)
[2016-09-29] MEDS: ACETAMINOPHEN/HYDROcodone 325 MG/5 MG TAB PO PRN (20:38)
[2016-09-29] MEDS: MONTELUKAST SODIUM 10 MG TAB PO SCH (20:38)
[2016-09-29] MEDS: ENOXAPARIN SODIUM 40 MG/0.4 ML SYRINGE SQ SCH (20:39)
[2016-09-29 21:17] VITALS: BP 143/71; PULSE 118; RESP 21; TEMP 98.2; O2SAT 92
[2016-09-30] VITALS (10 sets, daily range): BP systolic 110–139; BP diastolic 69–87; PULSE 18–106; RESP 16–20; TEMP 97.3–98.1; O2SAT 92–97
[2016-09-30] MEDS: ACETAMINOPHEN/HYDROcodone 325 MG/10 MG TAB PO PRN ×3 (00:51→11:22)
[2016-09-30] MEDS: RESP: ALBUTEROL 2.5 MG/IPRATROPIUM 0.5 MG NEB (SCH) INH ×5 (01:09→19:36)
[2016-09-30] MEDS: INSULIN ASPART SUPPLEMENTAL SCALE SQ SCH ×4 (06:38→21:02)
[2016-09-30] MEDS: RESP: BUDESONIDE 0.5 MG/2 ML NEB NEB SCH ×2 (08:00→19:36)
[2016-09-30] MEDS: PANTOPRAZOLE SOD 40 MG DELAYED RELEASE TAB PO SCH (08:46)
[2016-09-30] MEDS: predniSONE 20 MG TAB PO SCH (08:46)
[2016-09-30] MEDS: LEVOFLOXACIN 750 MG TAB PO SCH (08:46)
[2016-09-30] MEDS: SODIUM CHLORIDE 0.9% FLUSH 5 ML FLUSH FLUSH SCH ×3 (08:46→21:03)
[2016-09-30] MEDS: GABAPENTIN 300 MG CAP PO SCH ×2 (08:46→21:01)
[2016-09-30] MEDS: BUDESONIDE-FORMOTEROL 160/4.5 MCG INHALER INH SCH ×2 (08:47→21:03)
[2016-09-30] MEDS ORDERED: ALBU0.08 NEB (10:46)
[2016-09-30] MEDS ORDERED: PRED20 PO (10:46)
[2016-09-30] MEDS ORDERED: OXYGENTANK NAS.CANULA (10:46)
[2016-09-30] MEDS ORDERED: SYMB160A INH (10:46)
[2016-09-30] MEDS ORDERED: MONT10TA4 PO (10:46)
[2016-09-30] MEDS ORDERED: LEVA750T PO (10:46)
--- NOTE | 2016-09-30 10:47 | HHI.DCPOC ---
Discharge Care Plan Diagnosis: (1) Asthma Goals to Promote Your Health * To prevent worsening of your condition and complications * To maintain your health at the optimal level Directions to Meet Your Goals Take your medications as prescribed Follow your dietary instruction Follow activity as directed Keep your appointments as scheduled Take your immunizations and boosters as scheduled If your symptoms worsen call your PCP, if no PCP go to Urgent Care Center or Emergency Room Smoking is Dangerous to Your Health. Avoid second hand smoke Call the 24-hour hour crisis hotline for domestic abuse at Jarvis Miranda MD R3 Sep 30, 2016 10:47
[2016-09-30] MEDS: CYCLOBENZAPRINE HCL 10 MG TAB PO PRN ×2 (13:21→21:01)
[2016-09-30] MEDS: DIAZEPAM 5 MG TAB PO PRN ×2 (13:53→22:45)
[2016-09-30] MEDS: PRAVASTATIN SOD 80 MG TAB PO SCH (21:01)
[2016-09-30] MEDS: MONTELUKAST SODIUM 10 MG TAB PO SCH (21:01)
[2016-09-30] MEDS: ACETAMINOPHEN/HYDROcodone 325 MG/5 MG TAB PO PRN (21:01)
[2016-09-30] MEDS: ENOXAPARIN SODIUM 40 MG/0.4 ML SYRINGE SQ SCH (21:02)
[2016-10-01] MEDS: ACETAMINOPHEN/HYDROcodone 325 MG/10 MG TAB PO PRN ×2 (02:29→09:21)
[2016-10-01 03:44] VITALS: BP 125/70; PULSE 100; RESP 19; TEMP 97.9; O2SAT 94
[2016-10-01] MEDS: CYCLOBENZAPRINE HCL 10 MG TAB PO PRN ×2 (05:07→13:41)
[2016-10-01] MEDS: DIAZEPAM 5 MG TAB PO PRN ×2 (05:07→13:40)
[2016-10-01] MEDS: INSULIN ASPART SUPPLEMENTAL SCALE SQ SCH ×2 (06:25→11:00)
[2016-10-01 08:00] VITALS: BP 125/81; PULSE 97; RESP 20; TEMP 95.9; O2SAT 93
--- NOTE | 2016-10-01 09:03 | HHI.FPPN ---
Subjective Remarks Patient seen and examined this morning. Afebrile vital signs stable pulse ox 94 on room air. Patient is excited to go home, but understands the need for possible home oxygen which is holding up her discharge. Plan for oxygen walk test to be repeated for today due to improvement of patient's oxygen status. Case management currently working on obtaining home oxygen. Patient has no complaints today. (Brian Celestin MD R2) Objective Vitals Vital Signs Date Time Temp Pulse Resp B/P Pulse Ox O2 Delivery O2 Flow Rate FiO2 10/01/16 03:44 97.9 100 19 125/70 94 09/30/16 23:57 98.0 101 19 127/72 94 09/30/16 19:36 96 Nasal Cannula 3.00 09/30/16 19:33 98.1 103 20 117/80 96 09/30/16 15:37 97.3 100 18 139/87 96 09/30/16 13:21 18 09/30/16 11:08 97.6 105 18 114/72 94 (Brian Celestin MD R2) Result Diagram: 09/27/16 0557 09/27/16 0557 Imaging Last Impressions Chest X-Ray 09/26/16 1365 Signed Impressions: Service Date/Time: Monday, September 26, 2016 18:02 - CONCLUSION: Trace right base atelectasis. Mild, chronic interstitial disease. Low Almazan MD Objective Remarks GENERAL: This is a well-nourished female in obvious discomfort on admission. Receiving breathing treatment at present. Sating 93% on room air. SKIN: No rashes, ecchymoses or lesions. Cool and dry. EYES: Pupils equal round and reactive. Extraocular motions intact. No scleral icterus. No injection or drainage. ENT: Nose without bleeding, purulent drainage. Airway patent. NECK:No lymphadenopathy. Supple, nontender, no meningeal signs. CARDIOVASCULAR: Regular rate and rhythm without murmurs, gallops, or rubs. RESPIRATORY: Improved air movement, especially at the bases. NO Expiratory wheezes noted on exam. No other adventitious sounds. GASTROINTESTINAL: Abdomen soft, obese. Mild suprapubic tenderness. No guarding. MUSCULOSKELETAL: Extremities without clubbing, cyanosis, or edema. No calf tenderness. 4/5 upper extremity strength. Needs assistance to rise to seated position. NEUROLOGICAL: Awake and alert. Motor and sensory grossly within normal limits. Normal speech. Medications and IVs Current Medications Medications (Trade) Dose Ordered Sig/Geovany Route Start Time Stop Time Status Last Admin (Symbicort 160-4.5 Inh) 2 puff Q12HR INH 09/27/16 09:00 09/30/16 21:03 (Flexeril) 5 mg TID PRN PO 09/26/16 21:30 10/01/16 05:07 (Valium) 5 mg TID PRN PO 09/26/16 21:30 10/01/16 05:07 (Neurontin) 300 mg Q12HR PO 09/27/16 09:00 09/30/16 21:01 (Pravachol) 80 mg HS PO 09/27/16 21:00 09/30/16 21:01 (NS Flush) 2 ml UNSCH PRN FLUSH 09/26/16 22:00 (NS Flush) 2 ml BID FLUSH 09/27/16 09:00 09/30/16 08:46 (Zofran Inj) 4 mg Q6H PRN IVP 09/26/16 22:00 (Lovenox Inj) 40 mg Q24H SQ 09/26/16 22:00 09/30/16 21:02 (Narcan Inj) 0.4 mg UNSCH PRN IV 09/26/16 22:00 (Vasotec Inj) 1.25 mg Q6H PRN IV 09/26/16 22:00 (Protonix) 40 mg DAILY PO 09/27/16 09:00 09/30/16 08:46 (Levaquin) 750 mg DAILY PO 09/27/16 09:00 09/30/16 08:46 (Tylenol) 650 mg Q6H PRN PO 09/27/16 00:15 (Garrison 5-325 Mg) 1 tab Q4H PRN PO 09/27/16 00:15 09/30/16 21:01 ([place]arrison 10-325 Mg) 1 tab Q4H PRN PO 09/27/16 00:15 10/01/16 02:29 (D50w (Vial) Inj) 25 ml UNSCH PRN IV PUSH 09/27/16 01:30 (Glucagon Inj) 1 mg UNSCH PRN OTHER 09/27/16 01:30 (Singulair) 10 mg HS PO 09/28/16 21:00 09/30/16 21:01 (Deltasone) 40 mg DAILY PO 09/28/16 09:00 09/30/16 08:46 (Pyridium) 200 mg Q8H PRN PO 09/28/16 08:30 (Desyrel) 50 mg HS PRN PO 09/28/16 22:00 09/28/16 22:06 (Brian Celestin MD R2) A/P Assessment and Plan 56-year-old female with PMH significant for DM, asthma. Admitted for asthma exacerbation. Now with improving SOB on duoneb and PO steroids. Discharge Planning Likely DC home today pending walk test results and obtaining home oxygen. Discuss with Dr. Magallon. (Brian Celestin MD R2) Attending Attestation Patient seen and examined. Case reviewed and discussed with the resident team. Agree with plan of care as discussed with me and documented in the resident note. improving daily but had severe exacerbation and required days to improve to the point where she did not need oxygen (Kirti Magallon MD) Problem List: (1) Asthma Status: Acute Plan: Improving. VBG reassuring with normal pH. Leukocytosis on admission, now resolved. CXR normal. ACS r/o negative. -PO prednisone daily. Plan for total of 5 days on steroids. -cont duoneb q4 GEOVANY with accuneb PRN -cont levaquin (09/27-). Plan 7 day course. -singulair -symbicort at [place]. Pulmicort here in the hospital. -may need courtroom clerk as outpatient -PT -will order OOB TID with nursing -Walk test scheduled for today home pending results and obtaining Home Oxygen ( case management currently working on Home Oxygen) (2) Urinary hesitancy Status: Acute Plan: Symptoms of UTI including urinary hesitancy and mild suprapubic tenderness. UA is suspicious for UTI with large LE. -add azo for dysuria -urine cx negative -cont levaquin. (3) Nutrition, metabolism, and development symptoms Status: Acute Plan: Diet: Diabetic Fluids: None Electrolytes: Unremarkable, continue to monitor DVT prophylaxis: Lovenox GI prophylaxis: Protonix Chronic medical conditions: * Diabetes mellitus: Insulin sliding scale * HLD: Continue on pravastatin * Chronic back pain: Flexeril and Garrison * Peripheral neuropathy: Gabapentin (Brian Celestin MD R2) Brian Celestin MD R2 Oct 01, 2016 09:02 Kirti Magallon MD Oct 03, 2016 10:05
[2016-10-01] MEDS: PANTOPRAZOLE SOD 40 MG DELAYED RELEASE TAB PO SCH (09:18)
[2016-10-01] MEDS: GABAPENTIN 300 MG CAP PO SCH (09:18)
[2016-10-01] MEDS: LEVOFLOXACIN 750 MG TAB PO SCH (09:18)
[2016-10-01] MEDS: BUDESONIDE-FORMOTEROL 160/4.5 MCG INHALER INH SCH (09:19)
[2016-10-01] MEDS: predniSONE 20 MG TAB PO SCH (09:19)
[2016-10-01] MEDS: SODIUM CHLORIDE 0.9% FLUSH 5 ML FLUSH FLUSH SCH (09:20)
[2016-10-01] MEDS: RESP: BUDESONIDE 0.5 MG/2 ML NEB NEB SCH (09:26)
[2016-10-01 09:27] VITALS: O2SAT 95
[2016-10-01] MEDS ORDERED: ALBUAER3 INH (10:02)
[2016-10-05] MEDS ORDERED: CYCL1TAB29 PO (23:20)
[2016-10-06] MEDS ORDERED: DIAZ5TAB PO (21:38)
[2016-10-12] MEDS ORDERED: KETO60IN6 IM (11:47)
--- NOTE | 2016-10-14 08:57 | HHI.DS ---
Discharge Summary Admission Date Sep 26, 2016 at 20:30 Discharge Date: Oct 01, 2016 Admitting Diagnosis Wheezing, Hypoxemia (1) Asthma Diagnosis: Principal Plan: Improving. VBG reassuring with normal pH. Leukocytosis on admission, now resolved. CXR normal. ACS r/o negative. -PO prednisone daily. Plan for total of 5 days on steroids. -cont duoneb q4 SUYAPA with accuneb PRN -cont levaquin (09/27-). Plan 7 day course. -singulair -symbicort at [place]. Pulmicort here in the hospital. -may need zookeeper as outpatient -PT -will order OOB TID with nursing -Walk test scheduled for today home pending results and obtaining Home Oxygen ( case management currently working on Home Oxygen) (2) Urinary hesitancy Diagnosis: Secondary Plan: Symptoms of UTI including urinary hesitancy and mild suprapubic tenderness. UA is suspicious for UTI with large LE. -add azo for dysuria -urine cx negative -cont levaquin. (3) Nutrition, metabolism, and development symptoms Diagnosis: Secondary Plan: Diet: Diabetic Fluids: None Electrolytes: Unremarkable, continue to monitor DVT prophylaxis: Lovenox GI prophylaxis: Protonix Chronic medical conditions: * Diabetes mellitus: Insulin sliding scale * HLD: Continue on pravastatin * Chronic back pain: Flexeril and [place] * Peripheral neuropathy: Gabapentin Consultants none Procedures none Brief History Ms Caldwell is a 56-year-old female with a PMH significant for asthma and diabetes. Present here today due to shortness of breath that has progressively worsened over the last few days. Patient reports seeing PCP about 4 days before admission at which time she was treated with an antibiotic and prednisone for a cough. She continued to have symptoms despite medications. The day of admission when she was picking up items she felt an acute worsening of her SOB. She also endorsed chest pain which she describes as a sour feeling in the epigastric region. No radiation. She also endorsed diaphoresis and feelings of nausea but without vomiting. However she claims that the symptoms do not occur at the same time. Of note, per review of ED physician's note, patient has a history of requiring intubation but patient denies this. She only reports requiring intubation when she went back for surgery. She reported a history of asthma, allergy since childhood and receiving allergy shots at several points in her past most recently from Dr Watkins who retired several years ago but was an excellent zookeeper. We discussed going to see a new Dr for her allergies as she has had increasing problems over the past months or years since her zookeeper retired. She was using her home nebulizer prior to admission and still felt very SOB so that is what prompted her ED visit and admission. Overnight, the steroids have been helping and she is breathing more comfortably today though still with some SOB she can now speak in full sentences. She does not feel back to her baseline yet. PE at Discharge GENERAL: This is a well-nourished female in obvious discomfort on admission. Receiving breathing treatment at present. Sating 93% on room air. SKIN: No rashes, ecchymoses or lesions. Cool and dry. EYES: Pupils equal round and reactive. Extraocular motions intact. No scleral icterus. No injection or drainage. ENT: Nose without bleeding, purulent drainage. Airway patent. NECK:No lymphadenopathy. Supple, nontender, no meningeal signs. CARDIOVASCULAR: Regular rate and rhythm without murmurs, gallops, or rubs. RESPIRATORY: Improved air movement, especially at the bases. NO Expiratory wheezes noted on exam. No other adventitious sounds. GASTROINTESTINAL: Abdomen soft, obese. Mild suprapubic tenderness. No guarding. MUSCULOSKELETAL: Extremities without clubbing, cyanosis, or edema. No calf tenderness. 4/5 upper extremity strength. Needs assistance to rise to seated position. NEUROLOGICAL: Awake and alert. Motor and sensory grossly within normal limits. Normal speech. Hospital Course Omitted on 09/26/16 for asthma exacerbation. Patient required several days of breathing treatments and oxygen as well as steroids for improvement of her oxygen saturation. On the day of discharge she was passing her oxygen walk test , no longer requiring oxygen at rest, and felt comfortable with going home. She was discharged with antibiotics and steroids taper. Pt Condition on Discharge: Stable Discharge Disposition: Discharge Home Discharge Instructions DIET: Follow Instructions for: As Tolerated, No Restrictions Activities you can perform: Weight Bearing as Juan Follow up Referrals: PCP Follow-up - 1 Week New Medications: Levofloxacin (Levaquin) 750 Mg Tab 750 MG PO DAILY #3 TAB Montelukast (Montelukast) 10 Mg Tab 10 MG PO HS #30 Ref 2 TAB Prednisone (Prednisone) 20 Mg Tab 40 MG PO DAILY #6 TAB Continued Medications: Albuterol 8.5 GM Inh (Proair Hfa 8.5 GM Inh) 90 Mcg/Act Aer 1 PUFF INH Q6HR 108 mcg/actuation PRN SHORTNESS OF BREATH #1 Ref 0 INHALER ( This prescription has been renewed) Albuterol Neb (Albuterol Neb) 2.5 Mg/3 Ml Neb 2.5 MG NEB Q4HR NEB While awake Breathing Treatment #120 Ref 0 NEBULE (This prescription has been renewed) Budesonide-Formoterol Inh (Symbicort Inh) 160-4.5 Mcg/Act Aero 2 PUFF INH Q12HR #1 Ref 5 INHALER (This prescription has been renewed) Fluticasone Nasal [place] (Fluticasone Nasal [place]) 50 Mcg/Act Naspr 50 MCG EACH NARE 1-2 sprays NA daily 50 mcg/spray Allergy Management #1 Ref 0 BOTTLE Gabapentin (Gabapentin) 300 Mg Cap 300 MG PO TID #90 Ref 3 CAP Hydrocodone-Acetaminophen (Lortab) 5-325 Mg Tab 1 TAB PO DAILY Do not fill until September 27, 2016. PRN BREAKTHROUGH PAIN #30 Ref 0 TAB Metformin (Metformin) 500 Mg Tab 500 MG PO DAILY With a meal Blood Sugar Management #30 Ref 3 TAB Simvastatin (Simvastatin) 40 Mg Tab 40 MG PO HS Cholesterol Management #30 Ref 0 TAB Brian Celestin MD R2 Oct 14, 2016 08:57
[2016-10-21] MEDS ORDERED: HYDR-3533 PO (16:53)
[2016-10-27] MEDS ORDERED: DIAZ5TAB PO (15:46)
[2016-11-09] MEDS ORDERED: GABA300C5 PO (16:12)
[2016-11-09] MEDS ORDERED: HYDR-3533 PO (16:12)
[2016-11-10] MEDS ORDERED: CYCL5TAB PO (14:51)
[2016-12-06] MEDS ORDERED: IPRASOL NEB (10:01)
[2016-12-06] MEDS ORDERED: BUDE.5I NEB (10:01)
[2016-12-06] MEDS ORDERED: ALBUAER3 INH (10:01)
[2016-12-06] MEDS ORDERED: MONT10TA4 PO (10:01)
[2016-12-06] MEDS ORDERED: OXYGENTANK NAS.CANULA (10:10)
[2016-12-06] MEDS ORDERED: NEBULIZER1 MI1 (11:55)
[2016-12-13] MEDS ORDERED: CYCL5TAB PO (12:20)
[2016-12-22] MEDS ORDERED: LEVA0.637 INH (23:55)
[2016-12-23] MEDS ORDERED: LORA-392 PO (11:32)
[2016-12-28] MEDS ORDERED: NEUR300C PO (20:06)
[2016-12-28] MEDS ORDERED: HYDR-3533 PO (20:06)
[2017-01-12] MEDS ORDERED: CYCL5TAB PO (13:12)
[2017-01-16] MEDS ORDERED: LORA-392 PO (00:50)
[2017-01-19] MEDS ORDERED: NEUR300C PO (20:19)
[2017-01-26] MEDS ORDERED: HYDR-3533 PO (10:17)
[2017-02-03] MEDS ORDERED: CYCL5TAB PO (13:39)
[2017-02-03] MEDS ORDERED: PRED50 PO (13:40)
[2017-02-20] MEDS ORDERED: LORA-392 PO (15:46)
[2017-02-21] MEDS ORDERED: PRED20 PO (16:09)
[2017-02-21] MEDS ORDERED: BENZ100 PO (16:09)
[2017-02-28] MEDS ORDERED: HYDR-3533 PO (13:39)
== END 2016-10-01 15:25 | disposition home or self-care (01) | DRG 202 ==
LOC: NEPE 17:27 → NEDA 20:30 → NEPHCDU 23:30
PROVIDERS: ADMIT Family Medicine; ATTEND Family Medicine
PROC: 3E0F7GC Introduction of Other Therapeutic Substance into Respiratory Tract, Via Natural or Artificial Opening (ICD-10-PCS; principal; 2016-09-26)
DX: J45.901 Unspecified asthma with (acute) exacerbation (principal); J98.11 Atelectasis; N39.0 Urinary tract infection, site not specified; G62.9 Polyneuropathy, unspecified; J44.9 Chronic obstructive pulmonary disease, unspecified; E11.9 Type 2 diabetes mellitus without complications; D72.829 Elevated white blood cell count, unspecified; E78.00 Pure hypercholesterolemia, unspecified; G89.29 Other chronic pain; M19.90 Unspecified osteoarthritis, unspecified site; Z85.3 Personal history of malignant neoplasm of breast; Z92.3 Personal history of irradiation; R09.02 Hypoxemia; Z79.84 Long term (current) use of oral hypoglycemic drugs; M54.5 Low back pain; Z88.1 Allergy status to other antibiotic agents; Z88.5 Allergy status to narcotic agent; Z88.0 Allergy status to penicillin; Z88.2 Allergy status to sulfonamides; R39.11 Hesitancy of micturition; E78.5 Hyperlipidemia, unspecified
CPT/HCPCS: 71010; 80048; 80053; 81001; 82805; 82948; 83735; 83880; 84484; 85025; 85379; 85610; 85730; 87086; 93005; 94150; 94620; 94640; 94664; 94799; 96374; J1650; J1815; J2920; J2930; J7512; J7626

== ENCOUNTER 2016-10-29 10:48 | Emergency (ER) | payer OTHER ==
[~2016-10-29] VITALS: Ht 152.4 cm; Wt 80.0 kg
[~2016-10-29 10:48] MED LIST changes: -DOXY100C PO; +LEVA750T PO; +MONT10TA4 PO
[2016-10-29 10:50] VITALS: BP 132/75; PULSE 95; RESP 18; TEMP 98.3; O2SAT 93
[2016-10-29 11:05] VITALS: BP 141/93; PULSE 94; RESP 17; O2SAT 95
[2016-10-29 11:14] VITALS: O2SAT 97
[2016-10-29] MEDS ORDERED: methylPREDNISolone SOD SUCC 125 MG/2 ML VIAL IVP ONE (11:15)
[2016-10-29] MEDS ORDERED: SODIUM CHLORIDE 0.9% FLUSH 5 ML FLUSH IVF PRN (11:15)
--- NOTE | 2016-10-29 11:20 | PD ---
HPI Chief Complaint: Cold / Flu Symptoms Time Seen by Provider: 11:18 Travel History International Travel<30 days: No Contact w/Intl Traveler<30days: No Traveled to known affect area: No History of Present Illness HPI 56 year old female presents to the emergency department for evaluation of increased sob, wheezing, chest congestion, body aches for 2 days. Patient reports a history of either asthma. She currently uses an albuterol inhaler/ nebulizer home as well as Advair. Patient denies ever using tobacco products to be in a current tobacco smoker. Patient states she also uses a medication for hyperlipidemia. She denies any fevers or chills. No chest pain. No abdominal pain. She just reports some vomiting last night, but denies any current vomiting. Patient was admitted in September for hypoxemia, wheezing. Patient states she does not feel as bad as she did when she was admitted in September. She has not been on corticosteroids since her last admission. She denies any recent surgeries or travel. No history of DVT or PE. No hemoptysis. No leg swelling. She denies any history of CHF. PFSH Past Medical History 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) Cardiovascular Problems: Yes High Cholesterol: Yes Chemotherapy: Yes Chest Pain: No Congestive Heart Failure: No COPD: No Cerebrovascular Accident: No Diabetes: No Diminished Hearing: No Endocrine: No Genitourinary: No Immune Disorder: No Musculoskeletal: Yes (ATHRITIS) Neurologic: No Reproductive: No Respiratory: Yes (ASTHMA) Immunizations Current: Yes Pneumonia: Yes Radiation Therapy: Yes Sleep Apnea: No Thyroid Disease: No Tetanus Vaccination: > 5 Years Influenza Vaccination: No ?: Not Menopausal: Yes Past Surgical History Abdominal Surgery: Yes (HERNIA REPAIR) Hysterectomy: No Other Surgery: Yes (right lumpectomy) Social History Alcohol Use: No Tobacco Use: No Substance Use: No Allergies-Medications (Allergen,Severity, Reaction): Coded Allergies: Sulfa (Verified Allergy, Severe, SOB, 10/29/16) rash all over body Vibramycin (Verified Allergy, Severe, ANAPHALACTIC, 10/29/16) Morphine (Verified Allergy, Intermediate, vomiting, 10/29/16) Penicillin (Verified Allergy, Intermediate, Rash, 10/29/16) Tetracycline (Verified Allergy, Intermediate, Rash, 10/29/16) Reported Meds & Prescriptions Reported Meds & Active Scripts Active Diazepam 5 Mg Tab 5 Mg PO TID PRN Do not fill until 11/06/2016, thanks Lortab (Hydrocodone-Acetaminophen) 5-325 Mg Tab 1 Tab PO DAILY PRN Do not fill until October 28, 2016. Flexeril (Cyclobenzaprine HCl) 10 Mg Tab 5 Mg PO TID PRN Tale 1/2 pill as needed for muscle spasm Proair Hfa 8.5 GM Inh (Albuterol Sulfate) 90 Mcg/Act Aer 1 Puff INH Q6HR PRN 108 mcg/actuation Albuterol Neb (Albuterol Sulfate) 2.5 Mg/3 Ml Neb 2.5 Mg NEB Q4HR NEB While awake Symbicort Inh (Budesonide/Formoterol Fumarate) 160-4.5 Mcg/Act Aero 2 Puff INH Q12HR Gabapentin 300 Mg Cap 300 Mg PO TID Metformin (Metformin HCl) 500 Mg Tab 500 Mg PO DAILY With a meal Reported Simvastatin 40 Mg Tab 40 Mg PO DAILY Review of Systems Except as stated in HPI: all other systems reviewed are Neg Physical Exam Narrative GENERAL: Well-developed well-nourished female patient, afebrile. SKIN: Warm and dry. HEAD: Normocephalic. Atraumatic. EYES: No scleral icterus. No injection or drainage. NECK: Supple, trachea midline. No JVD or lymphadenopathy. CARDIOVASCULAR: Regular rate and rhythm without murmurs, gallops, or rubs. RESPIRATORY: Breath sounds equal bilaterally. No accessory muscle use. Lungs sounds diminished throughout. GASTROINTESTINAL: Abdomen soft, non-tender, nondistended. MUSCULOSKELETAL: No cyanosis, or edema. BACK: Nontender without obvious deformity. No CVA tenderness. Data Data Last Documented VS Vital Signs Date Time Temp Pulse Resp B/P Pulse Ox O2 Delivery O2 Flow Rate FiO2 10/29/16 11:33 97 Nasal Cannula 2.00 10/29/16 11:05 94 17 141/93 10/29/16 10:50 98.3 Orders Electrocardiogram (10/29/16 ) Complete Blood Count With Diff (10/29/16 11:09) Basic Metabolic Panel (Bmp) (10/29/16 11:09) Influenzae A/B Antigen (10/29/16 11:09) Iv Access Insert/Monitor (10/29/16 11:09) Ecg Monitoring (10/29/16 11:09) Oximetry (10/29/16 11:09) Oxygen Administration (10/29/16 11:09) Chest, Single Ap (10/29/16 11:09) Sodium Chloride 0.9% Flush (Ns Flush) (10/29/16 11:15) Methylprednisolone So Succ Inj (Solumedr (10/29/16 11:15) Albuterol-Ipratropium Neb (Duoneb Neb) (10/29/16 11:15) B-Type Natriuretic Peptide (10/29/16 11:09) Ondansetron Inj (Zofran Inj) (10/29/16 11:30) Labs Laboratory Tests Test 10/29/16 11:15 White Blood Count 5.5 TH/MM3 Red Blood Count 4.30 MIL/MM3 Hemoglobin 11.9 GM/DL Hematocrit 36.2 % Mean Corpuscular Volume 84.3 FL Mean Corpuscular Hemoglobin 27.7 PG Mean Corpuscular Hemoglobin 32.9 % Concent Red Cell Distribution Width 17.0 % Platelet Count 328 TH/MM3 Mean Platelet Volume 6.9 FL Neutrophils (%) (Auto) 34.0 % Lymphocytes (%) (Auto) 51.9 % Monocytes (%) (Auto) 10.9 % Eosinophils (%) (Auto) 2.8 % Basophils (%) (Auto) 0.4 % Neutrophils # (Auto) 1.9 TH/MM3 Lymphocytes # (Auto) 2.9 TH/MM3 Monocytes # (Auto) 0.6 TH/MM3 Eosinophils # (Auto) 0.2 TH/MM3 Basophils # (Auto) 0.0 TH/MM3 CBC Comment DIFF FINAL Differential Comment Sodium Level 138 MEQ/L Potassium Level 4.2 MEQ/L Chloride Level 107 MEQ/L Carbon Dioxide Level 24.1 MEQ/L Anion Gap 7 MEQ/L Blood Urea Nitrogen 18 MG/DL Creatinine 1.15 MG/DL Estimat Glomerular Filtration 49 ML/MIN Rate Random Glucose 96 MG/DL Calcium Level 8.1 MG/DL B-Type Natriuretic Peptide 40 PG/ML MDM Medical Decision Making Medical Screen Exam Complete: Yes Emergency Medical Condition: Yes Medical Record Reviewed: Yes Interpretation(s) Last Impressions Chest X-Ray 10/29/16 1109 Signed Impressions: Service Date/Time: Saturday, October 29, 2016 11:10 - CONCLUSION: No evidence of acute cardiopulmonary disease. Low Almazan MD Differential Diagnosis Asthma exacerbation versus pneumonia versus URI versus influenza Narrative Course 56-year-old female presents to the emergency department for evaluation of increased wheezing and shortness of breath for 2 days with a history of asthma. Patient does appear well on physical exam is talking in full sentences. Her oxygen saturation is 95% on room air. Patient is not tachycardic on exam. CBC , BMP, influenza, BNP are ordered and pending. EKG shows sinus rhythm, heart rate 90, no acute ST changes. Patient is given DuoNeb 3, Solu-Medrol 125 mg IV , Zofran 4 mg IV. Chest x-ray is ordered and pending. CBC shows no acute abnormality. BMP shows slightly elevated creatinine 1.15. BNP is 40. Influenza is negative. CXR shows no evidence of acute cardiopulmonary disease. Upon re-examination, patient states she feels much better and would like to go home. Patient will be discharged with a prescription for z-kofi, benzonatate capsules, and prednisone. She is encouraged to return for any acute worsening symptoms and is agreeable to this plan. The patient was discharged in stable condition with instructions, including return instructions and follow up instructions. Diagnosis Primary Impression: Asthma Qualified Code: J45.901 - Asthma with acute exacerbation, unspecified asthma severity Additional Impression: URI (upper respiratory infection) Qualified Code: J06.9 - Upper respiratory tract infection, unspecified type Referrals: Primary Care Physician call for appointment Patient Instructions: Asthma (ED), General Instructions, Upper Respiratory Infection (ED) Additional Instructions: Take antibiotic as directed until gone. Take benzonatate capsules as directed as needed for cough. Take prednisone as directed. Start this tomorrow. Follow up with your primary care physician. Return to the emergency department for any acute, worsening of symptoms. Med/Other Pt SpecificInfo: Prescription(s) given Scripts Benzonatate 200 Mg [id number] Mg PO TID PRN (COUGH) #21 CAP Ref 0 Prov:Sandee Kumari 10/29/16 Prednisone 20 Mg Tab40 Mg PO DAILY 4 Days Ref 0 Prov:Sandee Kumari 10/29/16 Azithromycin (Zithromax Z-Kofi)250 Mg [id number] Mg PO DIRECTED #1 DSPK Ref 0 500 MG (2 tabs) day 1, then 1 tab days 2-5. Prov:Sandee Kumari 10/29/16 Disposition: 01 DISCHARGE HOME Condition: Stable Sandee Kumari Oct 29, 2016 11:19
[2016-10-29] MEDS ORDERED: ONDANSETRON HCL 4 MG/2 ML VIAL IV PUSH ONE (11:30)
[2016-10-29 11:33] VITALS: O2SAT 97
[2016-10-29] MEDS: RESP: ALBUTEROL 2.5 MG/IPRATROPIUM 0.5 MG NEB (SCH) INH (11:33)
--- NOTE | 2016-10-29 11:33 | RADRPT ---
EXAM DATE/TIME: 10/29/2016 11:10 [facility] COMPARISON: CHEST SINGLE AP, September 26, 2016, 18:02. INDICATIONS : Shortness of breath for the past three days. MEDICAL HISTORY : Carcinoma, breast. Asthma. SURGICAL HISTORY : Right lumpectomy. Hernia repair. ENCOUNTER: Initial ACUITY: 3 days PAIN SCORE: 0/10 LOCATION: Bilateral chest FINDINGS: A single view of the chest demonstrates the lungs to be symmetrically aerated without evidence of mas s, infiltrate or effusion. The cardiomediastinal contours are unremarkable. Osseous structures are intact. CONCLUSION: No evidence of acute cardiopulmonary disease. Low Almazan MD on October 29, 2016 at 11:31 Board Certified Radiologist. This report was verified electronically.
[2016-10-29 11:34] VITALS: O2SAT 97
[2016-10-29 11:41] LABS: AUTOMATED NEUTROPHIL # 1.9 TH/MM3 (1.8-7.7); BASOPHIL % 0.4 % (0.0-2.0); EOSINOPHIL # 0.2 TH/MM3 (0-0.4); EOSINOPHIL % 2.8 % (0.0-4.0); HEMATOCRIT 36.2 % (35.0-46.0); HEMO FLAGS DIFF FINAL; LYMPH % 51.9 % (9.0-44.0); LYMPHOCYTE # 2.9 TH/MM3 (1.0-4.8); MEAN CELL VOLUME 84.3 FL (80.0-100.0); MEAN CORPUSCULAR HEMOGLOBIN 27.7 PG (27.0-34.0); MEAN CORPUSCULAR HGB CONC 32.9 % (32.0-36.0); MONO % 10.9 % (0.0-8.0); PLATELET COUNT 328 TH/MM3 (150-450); WHITE BLOOD COUNT 5.5 TH/MM3 (4.0-11.0)
[2016-10-29 11:55] LABS: BICARBONATE 24.1 MEQ/L (21.0-32.0); POTASSIUM 4.2 MEQ/L (3.5-5.1)
[2016-10-29] MEDS ORDERED: ZITHTAB PO (12:24)
[2016-10-29] MEDS ORDERED: PRED20 PO (12:24)
[2016-10-29] MEDS ORDERED: BENZ1CAP34 PO (12:24)
--- NOTE | 2016-10-29 16:29 | EKG ---
Date Performed: 10/29/2016 Time Performed: 11:07:51 PTAGE: 56 years EKG: Sinus rhythm Compared to previous tracing, PACs have resolved NORMAL ECG PREVIOUS TRACING : 09/27/2016 05.23 DOCTOR: Jerzy Pete Interpretating Date/Time 10/29/2016 16:28:13
[2016-11-09] MEDS ORDERED: GABA300C5 PO (16:12)
[2016-11-09] MEDS ORDERED: HYDR-3533 PO (16:12)
[2016-11-10] MEDS ORDERED: CYCL5TAB PO (14:51)
[2016-12-06] MEDS ORDERED: BUDE.5I NEB (10:01)
[2016-12-06] MEDS ORDERED: ALBUAER3 INH (10:01)
[2016-12-06] MEDS ORDERED: IPRASOL NEB (10:01)
[2016-12-06] MEDS ORDERED: MONT10TA4 PO (10:01)
[2016-12-06] MEDS ORDERED: OXYGENTANK NAS.CANULA (10:10)
[2016-12-06] MEDS ORDERED: NEBULIZER1 MI1 (11:55)
[2016-12-13] MEDS ORDERED: CYCL5TAB PO (12:20)
[2016-12-22] MEDS ORDERED: LEVA0.637 INH (23:55)
[2016-12-23] MEDS ORDERED: LORA-392 PO (11:32)
[2016-12-28] MEDS ORDERED: NEUR300C PO (20:06)
[2016-12-28] MEDS ORDERED: HYDR-3533 PO (20:06)
[2017-01-12] MEDS ORDERED: CYCL5TAB PO (13:12)
[2017-01-16] MEDS ORDERED: LORA-392 PO (00:50)
[2017-01-19] MEDS ORDERED: NEUR300C PO (20:19)
[2017-01-26] MEDS ORDERED: HYDR-3533 PO (10:17)
[2017-02-03] MEDS ORDERED: CYCL5TAB PO (13:39)
[2017-02-03] MEDS ORDERED: PRED50 PO (13:40)
[2017-02-20] MEDS ORDERED: LORA-392 PO (15:46)
[2017-02-21] MEDS ORDERED: BENZ100 PO (16:09)
[2017-02-21] MEDS ORDERED: PRED20 PO (16:09)
[2017-02-28] MEDS ORDERED: HYDR-3533 PO (13:39)
== END 2016-10-29 12:57 | disposition home or self-care (01) ==
LOC: NEPC 10:48
DX: J45.901 Unspecified asthma with (acute) exacerbation (principal); J06.9 Acute upper respiratory infection, unspecified; M79.1 Myalgia; E78.5 Hyperlipidemia, unspecified; Z87.39 Personal history of other diseases of the musculoskeletal system and connective tissue; Z87.09 Personal history of other diseases of the respiratory system; Z87.01 Personal history of pneumonia (recurrent); Z85.3 Personal history of malignant neoplasm of breast
CPT/HCPCS: 71010; 80048; 83880; 85025; 87804; 93005; 94640; 94664; 96374; 96375; 99284; J2405; J2930

== ENCOUNTER 2016-11-06 21:26 | Emergency (ER) | payer OTHER ==
[~2016-11-06] VITALS: Ht 152.4 cm; Wt 85.5 kg
[~2016-11-06 21:26] MED LIST changes: +BENZ1CAP34 PO; -FLUT50SP EACH NARE; -LEVA750T PO; -MONT10TA4 PO; +ZITHTAB PO
[2016-11-06 21:27] VITALS: BP 133/73; PULSE 110; RESP 18; TEMP 98.2; O2SAT 96
[2016-11-06 22:13] VITALS: BP 122/80; PULSE 101; RESP 20; O2SAT 94
--- NOTE | 2016-11-06 22:31 | PD ---
HPI Chief Complaint: Neuro Symptoms/ Deficits Time Seen by Provider: 22:04 Travel History International Travel<30 days: No Contact w/Intl Traveler<30days: No Traveled to known affect area: No History of Present Illness HPI 56 years old female complains of headache, right-sided facial drooping, wheezing and left-sided chest pain. Patient states that she noticed some right- sided facial drooping since yesterday. Patient states the symptoms worsened today. Patient has history of asthma and has intermittent wheezing today. Patient states that she started having sharp stabbing pain on left-sided chest have an hour prior to arrival. Patient denies any coughing congestion fever chills. Patient denies any injury to left chest wall. Patient has history of borderline hypertension not on medication, borderline diabetes not on medication , dyslipidemia. Patient is a nonsmoker. Patient denies any history of TIA or CVA. Patient denies any history of CAD. Patient states the headache constant throbbing headache diffuse over the head. Patient denies any visual change. Patient denies any neck pain. On a scale of 1-10 the headache is an 8. PFSH Past Medical History 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) Cardiovascular Problems: Yes High Cholesterol: Yes Chemotherapy: Yes Chest Pain: No Congestive Heart Failure: No COPD: No Cerebrovascular Accident: No Diabetes: No Diminished Hearing: No Endocrine: No Gastrointestinal Disorders: No Genitourinary: No Immune Disorder: No Musculoskeletal: Yes (ATHRITIS) Neurologic: No Reproductive: No Respiratory: Yes (ASTHMA) Immunizations Current: Yes Pneumonia: Yes Radiation Therapy: Yes Sleep Apnea: No Thyroid Disease: No Influenza Vaccination: No Menopausal: Yes Past Surgical History Abdominal Surgery: Yes (HERNIA REPAIR) Hysterectomy: No Other Surgery: Yes (right lumpectomy) Social History Alcohol Use: No Tobacco Use: No Substance Use: No Allergies-Medications (Allergen,Severity, Reaction): Coded Allergies: Sulfa (Verified Allergy, Severe, SOB, 11/06/16) rash all over body Vibramycin (Verified Allergy, Severe, ANAPHALACTIC, 11/06/16) Morphine (Verified Allergy, Intermediate, vomiting, 11/06/16) Penicillin (Verified Allergy, Intermediate, Rash, 11/06/16) Tetracycline (Verified Allergy, Intermediate, Rash, 11/06/16) Reported Meds & Prescriptions Reported Meds & Active Scripts Active Benzonatate 200 Mg Cap 200 Mg PO TID PRN Diazepam 5 Mg Tab 5 Mg PO TID PRN Do not fill until 11/06/2016, thanks Lortab (Hydrocodone-Acetaminophen) 5-325 Mg Tab 1 Tab PO DAILY PRN Do not fill until October 28, 2016. Proair Hfa 8.5 GM Inh (Albuterol Sulfate) 90 Mcg/Act Aer 1 Puff INH Q6HR PRN 108 mcg/actuation Albuterol Neb (Albuterol Sulfate) 2.5 Mg/3 Ml Neb 2.5 Mg NEB Q4HR NEB While awake Symbicort Inh (Budesonide/Formoterol Fumarate) 160-4.5 Mcg/Act Aero 2 Puff INH Q12HR Gabapentin 300 Mg Cap 300 Mg PO TID Reported Simvastatin 40 Mg Tab 40 Mg PO DAILY Review of Systems HENT: Positive: Headaches Cardiovascular: Positive: Chest Pain or Discomfort Neurologic: Positive: Weakness Physical Exam Narrative GENERAL: Well-nourished, well-developed patient. SKIN: Warm and dry. HEAD: Normocephalic. EYES: No scleral icterus. No injection or drainage. NECK: Supple, trachea midline. No JVD or lymphadenopathy. CARDIOVASCULAR: Regular rate and rhythm without murmurs, gallops, or rubs. RESPIRATORY: Breath sounds equal bilaterally. No accessory muscle use. GASTROINTESTINAL: Abdomen soft, non-tender, nondistended. MUSCULOSKELETAL: No cyanosis, or edema. BACK: Nontender without obvious deformity. No CVA tenderness. Neurologic exam: Patient's awake and alert oriented 3. Patient had weakness and right-sided facial including the forehead and right side of face the right eyelid and the right cheek right corner of the mouth area. Patient had decrease in light touch sensation of the left leg however patient has history of neuropathy and this is not new. Data Data Last Documented VS Vital Signs Date Time Temp Pulse Resp B/P Pulse Ox O2 Delivery O2 Flow Rate FiO2 11/06/16 23:54 97 16 137/75 93 Room Air 11/06/16 21:27 98.2 Orders Electrocardiogram (11/06/16 22:18) Complete Blood Count With Diff (11/06/16 22:18) Comprehensive Metabolic Panel (11/06/16 22:18) Creatine Kinase (Cpk) (11/06/16 22:18) Troponin I (11/06/16 22:18) Prothrombin Time / Inr (Pt) (11/06/16 22:18) Act Partial Throm Time (Ptt) (11/06/16 22:18) Urinalysis - C+S If Indicated (11/06/16 22:18) Chest, Single Ap (11/06/16 22:18) Ct Brain W/O Iv Contrast(Rout) (11/06/16 22:18) Iv Access Insert/Monitor (11/06/16 22:18) Ecg Monitoring (11/06/16 22:18) Oximetry (11/06/16 22:18) Hydromorphone Pf Inj (Dilaudid Pf Inj) (11/06/16 23:00) Ondansetron Inj (Zofran Inj) (11/06/16 23:00) Urine Culture (11/06/16 22:50) CKMB (11/06/16 22:35) CKMB% (11/06/16 22:35) Ketorolac Inj (Toradol Inj) (11/07/16 00:45) Labs Laboratory Tests Test 11/06/16 11/06/16 22:35 22:50 White Blood Count 12.5 TH/MM3 Red Blood Count 4.06 MIL/MM3 Hemoglobin 11.0 GM/DL Hematocrit 34.1 % Mean Corpuscular Volume 84.0 FL Mean Corpuscular Hemoglobin 27.2 PG Mean Corpuscular Hemoglobin 32.3 % Concent Red Cell Distribution Width 18.1 % Platelet Count 321 TH/MM3 Mean Platelet Volume 7.4 FL Neutrophils (%) (Auto) 78.6 % Lymphocytes (%) (Auto) 13.3 % Monocytes (%) (Auto) 7.1 % Eosinophils (%) (Auto) 0.0 % Basophils (%) (Auto) 1.0 % Neutrophils # (Auto) 9.8 TH/MM3 Lymphocytes # (Auto) 1.7 TH/MM3 Monocytes # (Auto) 0.9 TH/MM3 Eosinophils # (Auto) 0.0 TH/MM3 Basophils # (Auto) 0.1 TH/MM3 CBC Comment DIFF FINAL Differential Comment Prothrombin Time 10.2 SEC Prothromb Time International 0.9 RATIO Ratio Activated Partial 23.5 SEC Thromboplast Time Sodium Level 141 MEQ/L Potassium Level 4.2 MEQ/L Chloride Level 104 MEQ/L Carbon Dioxide Level 24.8 MEQ/L Anion Gap 12 MEQ/L Blood Urea Nitrogen 25 MG/DL Creatinine 1.11 MG/DL Estimat Glomerular Filtration 51 ML/MIN Rate Random Glucose 144 MG/DL Calcium Level 8.6 MG/DL Total Bilirubin 0.3 MG/DL Aspartate Amino Transf 15 U/L (AST/SGOT) Alanine Aminotransferase 17 U/L (ALT/SGPT) Alkaline Phosphatase 78 U/L Total Creatine Kinase 201 U/L Creatine Kinase MB 2.1 NG/ML Creatine Kinase MB % 1.0 % Troponin I LESS THAN 0.02 NG/ML Total Protein 6.9 GM/DL Albumin 3.6 GM/DL Urine Color YELLOW Urine Turbidity CLEAR Urine pH 6.0 [address]rine Specific [employer] 1.018 Urine Protein NEG mg/dL Urine Glucose (UA) NEG mg/dL Urine Ketones NEG mg/dL Urine Occult Blood NEG Urine Nitrite NEG Urine Bilirubin NEG Urine Urobilinogen LESS THAN 2.0 MG/DL Urine Leukocyte Esterase LARGE Urine RBC 2 /hpf Urine WBC 34 /hpf Urine Squamous Epithelial 2 /hpf Cells Urine Transitional Epithelial <1 /hpf Cells Urine Renal Epithelial Cells <1 /hpf Microscopic Urinalysis Comment CULTURE INDICATED MDM Medical Decision Making Medical Screen Exam Complete: Yes Emergency Medical Condition: Yes Interpretation(s) Last Impressions Chest X-Ray 11/06/162217 Signed Impressions: Service Date/Time: Sunday, November 06, 2016 22:20 - CONCLUSION: No acute disease. Donaldo Ruano MD 23:49 PM. CBC WBC 12.5. Hemoglobin 11.0 hematocrit 34.1. 78 neutrophil. BUN 25. Creatinine 1.11. Glucose 144. Cardiac enzymes are normal. Total CK 201. Normal MB fraction. UA positive for WBC. 1:[address] scan of the brain negative acute pathology. Differential Diagnosis Differential diagnosis including Disla's palsy, TIA, CVA, musculoskeletal, angina , UT, PE, pneumothorax. Narrative Course 56 years old female with right-sided facial drooping, left-sided chest pain. Right-sided facial drooping started yesterday evening. Left-sided chest pain started half an hour prior to arrival. Diagnosis Primary Impression: Disla's palsy Additional Impression: Cephalgia Qualified Code: R51 - Acute nonintractable headache, unspecified headache type Patient Instructions: General Instructions Additional Instructions: Take medications as directed. Follow-up with personal physician and neurologist. Return if worse. Teardrop to the right eye during the daytime. Tape right eyelid at night. Med/Other Pt SpecificInfo: Prescription(s) given Scripts Acyclovir (Zovirax)800 Mg [id number] Mg PO 5 TIMES A DAY #35 TAB Prov:Aristides Thorpe MD 11/07/16 Prednisone 20 Mg Tab20 Mg PO BID #10 TAB Prov:Aristides Thorpe MD 11/07/16 Disposition: 01 DISCHARGE HOME Condition: Stable Aristides Thorpe MD Nov 06, 2016 22:31
--- NOTE | 2016-11-06 22:44 | RADRPT ---
EXAM DATE/TIME: 11/06/2016 22:20 [facility] COMPARISON: CHEST SINGLE AP, October 29, 2016, 11:10. INDICATIONS : Chest pain. MEDICAL HISTORY : Carcinoma, breast. SURGICAL HISTORY : Lumpectomy. Port placement. ENCOUNTER: Initial ACUITY: 2 days PAIN SCORE: 5/10 LOCATION: Bilateral chest FINDINGS: A single view of the chest demonstrates the lungs to be symmetrically aerated without evidence of mas s, infiltrate or effusion. The cardiomediastinal contours are unremarkable. Osseous structures are intact. CONCLUSION: No acute disease. Donaldo Ruano MD on November 06, 2016 at 22:42 Board Certified Radiologist. This report was verified electronically.
[2016-11-06 22:57] LABS: AUTOMATED NEUTROPHIL # 9.8 TH/MM3 (1.8-7.7); BASOPHIL # 0.1 TH/MM3 (0-0.2); HEMATOCRIT 34.1 % (35.0-46.0); HEMO FLAGS DIFF FINAL; LYMPH % 13.3 % (9.0-44.0); LYMPHOCYTE # 1.7 TH/MM3 (1.0-4.8); MEAN CORPUSCULAR HEMOGLOBIN 27.2 PG (27.0-34.0); MEAN CORPUSCULAR HGB CONC 32.3 % (32.0-36.0); MONO % 7.1 % (0.0-8.0); NEUT % 78.6 % (16.0-70.0); PLATELET COUNT 321 TH/MM3 (150-450); RED BLOOD COUNT 4.06 MIL/MM3 (4.00-5.30); RED CELL DISTRIBUTION WIDTH 18.1 % (11.6-17.2); WHITE BLOOD COUNT 12.5 TH/MM3 (4.0-11.0)
[2016-11-06] MEDS ORDERED: ONDANSETRON HCL 4 MG/2 ML VIAL IV PUSH ONE (23:00)
[2016-11-06] MEDS ORDERED: HYDROmorphone HCL PF 1 MG/ML VIAL IV PUSH ONE (23:00)
[2016-11-06 23:12] LABS: APTT (PATIENT) 23.5 SEC (24.3-30.1); INTERNATIONAL NORMALIZED RATIO 0.9 RATIO; PROTHROMBIN TIME - PATIENT 10.2 SEC (9.8-11.6)
[2016-11-06 23:21] LABS: BLOOD, URINE NEG (NEG); COMMENT (UR) CULTURE INDICATED; CULTURE IF INDICATED CULTURE INDICATED; GLUCOSE,URINE NEG (NEG); KETONE, URINE NEG (NEG); NITRITE,URINE NEG (NEG); RENAL EPITHELIAL CELLS <1 /hpf; SQUAMOUS EPITHELIAL CELL URINE 2 /hpf (0-5); TRANSITIONAL EPI CELLS, URINE <1 /hpf; URINE COLOR YELLOW (YELLW/STRAW)
[2016-11-06 23:26] LABS: ALKALINE PHOSPHATASE 78 U/L (45-117); ALT (GPT) 17 U/L (10-53); ANION GAP 12 MEQ/L (5-15); AST (GOT) 15 U/L (15-37); BICARBONATE 24.8 MEQ/L (21.0-32.0); BLOOD UREA NITROGEN 25 MG/DL (7-18); CHLORIDE 104 MEQ/L (98-107); CREATINE KINASE 201 U/L (26-192); GLOMERULAR FILTRATION RATE 51 ML/MIN (>89); POTASSIUM 4.2 MEQ/L (3.5-5.1); SODIUM (NA) 141 MEQ/L (136-145); TOTAL BILIRUBIN ADULT 0.3 MG/DL (0.2-1.0)
[2016-11-06 23:39] LABS: CKMB 2.1 NG/ML (0.5-3.6)
[2016-11-06 23:54] VITALS: BP 137/75; PULSE 97; RESP 16; O2SAT 93
[2016-11-07] MEDS ORDERED: KETOROLAC TROMETHAMINE 30 MG/ML (IVP) VIAL IV PUSH ONE (00:45)
--- NOTE | 2016-11-07 00:46 | RADRPT ---
EXAM DATE/TIME: 11/07/2016 00:04 [facility] COMPARISON: No previous studies available for comparison. INDICATIONS : Weakness and headache. RADIATION DOSE: 56.35 CTDIvol (mGy) MEDICAL HISTORY : Cardiovascular disease. Hypercholesterolemia. Asthma SURGICAL HISTORY : Inguinal hernia repair. right breast lumpectomy ENCOUNTER: Initial ACUITY: 1 day PAIN SCALE: 5/10 LOCATION: cranial TECHNIQUE: Multiple contiguous axial images were obtained of the head. Using automated exposure control and adj ustment of the mA and/or kV according to patient size, radiation dose was kept as low as reasonably a chievable to obtain optimal diagnostic quality images. FINDINGS: CEREBRUM: The ventricles are normal for age. No evidence of midline shift, mass lesion, hemorrhage or acute in farction. No extra-axial fluid collections are seen. POSTERIOR FOSSA: The cerebellum and brainstem are intact. The 4th ventricle is midline. The cerebellopontine angle i s unremarkable. EXTRACRANIAL: The visualized portion of the orbits is intact. SKULL: The calvaria is intact. No evidence of skull fracture. CONCLUSION: 1. No acute intracranial abnormalities. Ulices Valdez MD on November 07, 2016 at 0:43 Board Certified Radiologist. This report was verified electronically.
[2016-11-07 01:07] VITALS: BP 145/65
[2016-11-07] MEDS ORDERED: PRED20 PO (01:09)
[2016-11-07] MEDS ORDERED: ACYC-101 PO (01:09)
--- NOTE | 2016-11-07 13:37 | EKG ---
Date Performed: 11/06/2016 Time Performed: 22:39:30 PTAGE: 56 years EKG: SINUS TACHYCARDIA ABNORMAL RHYTHM ECG Compared to prior tracing no significant change PREVIOUS TRACING : 10/29/2016 11.07 DOCTOR: Ramsey Lee Interpretating Date/Time 11/07/2016 13:36:16
[2016-11-08] MEDS ORDERED: ROBA500T PO (00:55)
[2016-11-08] MEDS ORDERED: PERC5TAB12 PO (00:55)
[2016-11-09] MEDS ORDERED: HYDR-3533 PO (16:12)
[2016-11-09] MEDS ORDERED: GABA300C5 PO (16:12)
[2016-11-10] MEDS ORDERED: CYCL5TAB PO (14:51)
[2016-12-06] MEDS ORDERED: MONT10TA4 PO (10:01)
[2016-12-06] MEDS ORDERED: BUDE.5I NEB (10:01)
[2016-12-06] MEDS ORDERED: ALBUAER3 INH (10:01)
[2016-12-06] MEDS ORDERED: IPRASOL NEB (10:01)
[2016-12-06] MEDS ORDERED: OXYGENTANK NAS.CANULA (10:10)
[2016-12-06] MEDS ORDERED: NEBULIZER1 MI1 (11:55)
[2016-12-13] MEDS ORDERED: CYCL5TAB PO (12:20)
[2016-12-22] MEDS ORDERED: LEVA0.637 INH (23:55)
[2016-12-23] MEDS ORDERED: LORA-392 PO (11:32)
[2016-12-28] MEDS ORDERED: NEUR300C PO (20:06)
[2016-12-28] MEDS ORDERED: HYDR-3533 PO (20:06)
[2017-01-12] MEDS ORDERED: CYCL5TAB PO (13:12)
[2017-01-16] MEDS ORDERED: LORA-392 PO (00:50)
[2017-01-19] MEDS ORDERED: NEUR300C PO (20:19)
[2017-01-26] MEDS ORDERED: HYDR-3533 PO (10:17)
[2017-02-03] MEDS ORDERED: CYCL5TAB PO (13:39)
[2017-02-03] MEDS ORDERED: PRED50 PO (13:40)
[2017-02-20] MEDS ORDERED: LORA-392 PO (15:46)
[2017-02-21] MEDS ORDERED: BENZ100 PO (16:09)
[2017-02-21] MEDS ORDERED: PRED20 PO (16:09)
[2017-02-28] MEDS ORDERED: HYDR-3533 PO (13:39)
== END 2016-11-07 01:15 | disposition home or self-care (01) ==
LOC: NEPC 21:26
DX: G51.0 Bell's palsy (principal); R51 Headache; E78.00 Pure hypercholesterolemia, unspecified
CPT/HCPCS: 70450; 71010; 80053; 81001; 82550; 82552; 84484; 85025; 85610; 85730; 87077; 87086; 87186; 93005; 96374; 96375; 99285; J1170; J1885; J2405

== ENCOUNTER 2016-11-07 21:14 | Emergency (ER) | payer OTHER ==
[~2016-11-07] VITALS: Ht 152.4 cm; Wt 80.0 kg
[~2016-11-07 21:14] MED LIST changes: +ACYC-101 PO; -CYCL1TAB29 PO; -METF500T PO; -ZITHTAB PO
[2016-11-07 21:16] VITALS: BP 164/91; PULSE 99; RESP 20; TEMP 98; O2SAT 96
[2016-11-07 22:59] VITALS: BP 132/84; PULSE 87; RESP 18; O2SAT 97
[2016-11-07] MEDS ORDERED: METHOCARBAMOL 500 MG TAB PO ONE (23:15)
[2016-11-07] MEDS ORDERED: oxyCODONE/ACETAMINOPHEN 10 MG/325 MG TAB PO ONE (23:15)
--- NOTE | 2016-11-07 23:23 | PD ---
HPI Chief Complaint: Fall Time Seen by Provider: 23:11 Travel History International Travel<30 days: No Contact w/Intl Traveler<30days: No Traveled to known affect area: No History of Present Illness HPI 56 red female with history of reactive airway disease, seen in the emergency department yesterday and diagnosed with Disla's palsy for right facial droop, back in the emergency department today for evaluation of head neck and back pain after falling off a ladder at around 4:30 PM today. The patient reports that she was hanging shingles on her roof. She states that she fell off of her ladder from about a height of 3 feet. In triage the patient reported that she did not lose consciousness, however when asked she tells me that she did lose consciousness. She is presenting to the emergency department over 6 hours after the fall. She has history of chronic low back pain and takes Percocet at home, however this has not helped with her current symptoms. She feels nauseous. No visual disturbances. No motor deficits. PFSH Past Medical History 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) Cardiovascular Problems: Yes High Cholesterol: Yes Chemotherapy: Yes Chest Pain: No Congestive Heart Failure: No COPD: No Cerebrovascular Accident: No Diabetes: No Diminished Hearing: No Endocrine: No Gastrointestinal Disorders: No Genitourinary: No Immune Disorder: No Musculoskeletal: Yes (ATHRITIS) Neurologic: No Reproductive: No Respiratory: Yes (ASTHMA) Immunizations Current: Yes Pneumonia: Yes Radiation Therapy: Yes Sleep Apnea: No Thyroid Disease: No Menopausal: Yes Past Surgical History Abdominal Surgery: Yes (HERNIA REPAIR) Hysterectomy: No Other Surgery: Yes (right lumpectomy) Social History Alcohol Use: No Tobacco Use: No Substance Use: No Allergies-Medications (Allergen,Severity, Reaction): Coded Allergies: Sulfa (Verified Allergy, Severe, SOB, 11/06/16) rash all over body Vibramycin (Verified Allergy, Severe, ANAPHALACTIC, 11/06/16) Morphine (Verified Allergy, Intermediate, vomiting, 11/06/16) Penicillin (Verified Allergy, Intermediate, Rash, 11/06/16) Tetracycline (Verified Allergy, Intermediate, Rash, 11/06/16) Reported Meds & Prescriptions Reported Meds & Active Scripts Active Zovirax (Acyclovir) 800 Mg Tab 800 Mg PO 5 TIMES A DAY Prednisone 20 Mg Tab 20 Mg PO BID Benzonatate 200 Mg Cap 200 Mg PO TID PRN Diazepam 5 Mg Tab 5 Mg PO TID PRN Do not fill until 11/06/2016, thanks Lortab (Hydrocodone-Acetaminophen) 5-325 Mg Tab 1 Tab PO DAILY PRN Do not fill until October 28, 2016. Proair Hfa 8.5 GM Inh (Albuterol Sulfate) 90 Mcg/Act Aer 1 Puff INH Q6HR PRN 108 mcg/actuation Albuterol Neb (Albuterol Sulfate) 2.5 Mg/3 Ml Neb 2.5 Mg NEB Q4HR NEB While awake Symbicort Inh (Budesonide/Formoterol Fumarate) 160-4.5 Mcg/Act Aero 2 Puff INH Q12HR Gabapentin 300 Mg Cap 300 Mg PO TID Reported Simvastatin 40 Mg Tab 40 Mg PO DAILY Review of Systems Except as stated in HPI: all other systems reviewed are Neg Physical Exam Narrative GENERAL: Well-developed, well-nourished, awake, alert, no acute distress. SKIN: Warm and dry. No lacerations, abrasions, or ecchymosis. HEAD: Atraumatic. Normocephalic. No craniofacial step-offs or tenderness. EYES: Pupils equal and round. No scleral icterus. No injection or drainage. ENT: Mucous membranes pink and moist. NECK: Trachea midline. No JVD. Midline cervical spine tenderness without step- off. CARDIOVASCULAR: Regular rate and rhythm. RESPIRATORY: No accessory muscle use. Clear to auscultation. Breath sounds equal bilaterally. GASTROINTESTINAL: Abdomen soft, non-tender, nondistended. MUSCULOSKELETAL: No obvious deformities. No clubbing. No cyanosis. No edema. Midline thoracic and lumbar spine tenderness without step-off. NEUROLOGICAL: Awake and alert. Mild right facial droop. Rest of her cranial nerves are intact. Motor grossly within normal limits. Normal speech. No motor deficits. PSYCHIATRIC: Appropriate mood and affect; insight and judgment normal. Data Data Last Documented VS Vital Signs Date Time Temp Pulse Resp B/P Pulse Ox O2 Delivery O2 Flow Rate FiO2 11/07/16 22:59 87 18 132/84 97 Room Air 11/07/16 21:[address] Brain W/O Iv Contrast(Rout) (11/07/16 ) Ct Cerv Spine W/O Contrast (11/07/16 ) Ct Thor Spine W/O Contrast (11/07/16 ) Ct Lumb Spine W/O Contrast (11/07/16 ) Oxycodone-Acetamin 10-325 Mg (Percocet 1 (11/07/16 23:15) Methocarbamol (Robaxin) (11/07/16 23:15) Chest, Single Ap (11/07/16 ) MDM Medical Decision Making Medical Screen Exam Complete: Yes Emergency Medical Condition: Yes Differential Diagnosis Intracranial trauma, vertebral injury, contusion Narrative Course Vital signs reviewed. Chest x-ray: CONCLUSION: 1. Minimal basal atelectasis or scarring. Surgical clips right axillary region. CT head: CONCLUSION: Normal examination for a patient of this age. CT cervical spine: CONCLUSION: 1. No acute findings. Mild degenerative disc disease and facet arthropathy. No significant canal stenosis CT thoracic spine: CONCLUSION: 1. No acute findings. Moderate degenerative disc disease. CT lumbar spine: CONCLUSION: 1. No acute findings. No significant change from May 2016. Mild canal stenosis at L3-4-5 with lateral recess and neural foraminal encroachment bilaterally as well. The patient was given one Percocet and Robaxin. Upon reassessment she is walking around the room and is ready to go home. She was made aware of all findings. She is stable for discharge home with outpatient follow-up with her primary care physician this week. Diagnosis Primary Impression: Fall Qualified Code: W19.XXXA - Fall, initial encounter Additional Impression: Closed head injury Qualified Code: S09.90XA - Closed head injury, initial encounter Referrals: Primary Care Physician 3 days Additional Instructions: Follow-up with your primary care physician this week. Return to the emergency department for worsening symptoms or any other concerns. Scripts Methocarbamol (Robaxin)500 Mg [id number] Mg PO TID #10 TAB Ref 0 Prov:Oni Stevens MD 11/08/16 Oxycodone-Acetaminophen (Percocet)5-325 mg Tab1 Tab PO Q6H PRN (PAIN) #10 TAB Ref 0 Prov:Oni Stevens MD 11/08/16 Disposition: 01 DISCHARGE HOME Condition: Stable Oni Stevens MD Nov 07, 2016 23:23
--- NOTE | 2016-11-08 00:14 | RADRPT ---
EXAM DATE/TIME: 11/07/2016 23:52 [facility] COMPARISON: No previous studies available for comparison. INDICATIONS : Fell off ladder today. RADIATION DOSE: 54.26 CTDIvol (mGy) MEDICAL HISTORY : Cardiovascular disease. Hypercholesterolemia. Asthma SURGICAL HISTORY : Inguinal hernia repair. ENCOUNTER: Initial ACUITY: 1 day PAIN SCALE: 7/10 LOCATION: cranial TECHNIQUE: Multiple contiguous axial images were obtained of the head. Using automated exposure control and adj ustment of the mA and/or kV according to patient size, radiation dose was kept as low as reasonably a chievable to obtain optimal diagnostic quality images. FINDINGS: CEREBRUM: The ventricles are normal for age. No evidence of midline shift, mass lesion, hemorrhage or acute in farction. No extra-axial fluid collections are seen. POSTERIOR FOSSA: The cerebellum and brainstem are intact. The 4th ventricle is midline. The cerebellopontine angle i s unremarkable. EXTRACRANIAL: The visualized portion of the orbits is intact. SKULL: The calvaria is intact. No evidence of skull fracture. CONCLUSION: Normal examination for a patient of this age. Ulices Valdez MD on November 08, 2016 at 0:12 Board Certified Radiologist. This report was verified electronically.
--- NOTE | 2016-11-08 00:18 | RADRPT ---
EXAM DATE/TIME: 11/07/2016 23:41 [facility] COMPARISON: CHEST SINGLE AP, November 06, 2016, 22:20. INDICATIONS : Chest pain after fall. MEDICAL HISTORY : Cardiovascular disease. Hypercholesterolemia. Asthma. SURGICAL HISTORY : Right breast lumpectomy. ENCOUNTER: Initial ACUITY: 1 day PAIN SCORE: 5/10 LOCATION: Bilateral chest FINDINGS: A single view of the chest demonstrates no focal consolidation or effusion. Surgical clips right axil desean region. No pneumothorax. CONCLUSION: 1. Minimal basal atelectasis or scarring. Surgical clips right axillary region. Ulices Valdez MD on November 08, 2016 at 0:15 Board Certified Radiologist. This report was verified electronically.
--- NOTE | 2016-11-08 00:21 | RADRPT ---
EXAM DATE/TIME: 11/07/2016 23:52 [facility] COMPARISON: No previous studies available for comparison. INDICATIONS : Fell off ladder today. RADIATION DOSE: 28.07 CTDIvol (mGy) MEDICAL HISTORY : Cardiovascular disease. Hypercholesterolemia. Asthma SURGICAL HISTORY : Inguinal hernia repair. ENCOUNTER: Initial ACUITY: 1 day PAIN SCALE: 7/10 LOCATION: neck TECHNIQUE: Volumetric scanning of the cervical spine was performed. Multiplanar reconstructions in the sagittal, coronal and oblique axial planes were performed. Using automated exposure control and adjustment o f the mA and/or kV according to patient size, radiation dose was kept as low as reasonably achievable to obtain optimal diagnostic quality images. FINDINGS: VERTEBRAE: Normal vertebral body height. ALIGNMENT: No evidence of subluxation. C2-C3: The bony spinal canal is normal in size. No evidence of disc bulge or herniation. The neural forami na are bilaterally patent. C3-C4: The bony spinal canal is normal in size. No evidence of disc bulge or herniation. The neural forami na are bilaterally patent. C4-C5: The bony spinal canal is normal in size. No evidence of disc bulge or herniation. The neural forami na are bilaterally patent. C5-C6: The bony spinal canal is normal in size. No evidence of disc bulge or herniation. The neural forami na are bilaterally patent. C6-C7: The bony spinal canal is normal in size. No evidence of disc bulge or herniation. The neural forami na are bilaterally patent. C7-T1: The bony spinal canal is normal in size. No evidence of disc bulge or herniation. The neural forami na are bilaterally patent. CONCLUSION: 1. No acute findings. Mild degenerative disc disease and facet arthropathy. No significant canal sten osis. Ulices Valdez MD on November 08, 2016 at 0:17 Board Certified Radiologist. This report was verified electronically.
--- NOTE | 2016-11-08 00:26 | RADRPT ---
EXAM DATE/TIME: 11/07/2016 23:59 [facility] COMPARISON: No previous studies available for comparison. INDICATIONS : Fell off . RADIATION DOSE: 34.88 CTDIvol (mGy) ; Combined studies - Thoracic Spine/Lumbar Spine MEDICAL HISTORY : Cardiovascular disease. Hypercholesterolemia. Asthma SURGICAL HISTORY : Inguinal hernia repair. ENCOUNTER: Initial ACUITY: 1 day PAIN SCALE: 7/10 LOCATION: thoracic TECHNIQUE: Volumetric scanning of the thoracic spine was performed. Multiplanar reconstructions in the sagittal , coronal and oblique axial planes were performed. Using automated exposure control and adjustment o f the mA and/or kV according to patient size, radiation dose was kept as low as reasonably achievable to obtain optimal diagnostic quality images. FINDINGS: No acute fracture or spondylolisthesis identified in the thoracic spine. Moderate degenerative disc d isease. No bony canal stenosis. No discrete disc protrusions identified. Incidental hemangioma noted at L1. CONCLUSION: 1. No acute findings. Moderate degenerative disc disease. Ulices Valdez MD on November 08, 2016 at 0:21 Board Certified Radiologist. This report was verified electronically.
--- NOTE | 2016-11-08 00:30 | RADRPT ---
EXAM DATE/TIME: 11/07/2016 23:59 [facility] COMPARISON: CT LUMBAR SPINE W/O CONTRAST, June 03, 2016, 13:33. INDICATIONS : Fell off ladder today. RADIATION DOSE: 34.88 CTDIvol (mGy) ; Combined studies - Thoracic Spine/Lumbar Spine MEDICAL HISTORY : Cardiovascular disease. Hypercholesterolemia. Asthma SURGICAL HISTORY : Inguinal hernia repair. ENCOUNTER: Initial ACUITY: 1 day PAIN SCALE: 7/10 LOCATION: lumbar TECHNIQUE: Volumetric scanning of the lumbar spine was performed. Multiplanar reconstructions in the sagittal, coronal and oblique axial planes were performed. Using automated exposure control and adjustment of the mA and/or kV according to patient size, radiation dose was kept as low as reasonably achievable t o obtain optimal diagnostic quality images. FINDINGS: There is no acute fracture or spondylolisthesis. Incidental hemangioma in L1. At L3-4-5 there is vacu um phenomenon and posterior disc ossified complex resulting in mild canal stenosis. Findings are osmany lar to May 2016. CONCLUSION: 1. No acute findings. No significant change from May 2016. Mild canal stenosis at L3-4-5 with l ateral recess and neural foraminal encroachment bilaterally as well. Ulices Valdez MD on November 08, 2016 at 0:25 Board Certified Radiologist. This report was verified electronically.
[2016-11-08] MEDS ORDERED: ROBA500T PO (00:55)
[2016-11-08] MEDS ORDERED: PERC5TAB12 PO (00:55)
[2016-11-08] MEDS ORDERED: GABAPENTIN 100 MG CAP PO ONE (01:00)
[2016-11-08 01:23] VITALS: BP 117/82
[2016-11-09] MEDS ORDERED: GABA300C5 PO (16:12)
[2016-11-09] MEDS ORDERED: HYDR-3533 PO (16:12)
[2016-11-10] MEDS ORDERED: CYCL5TAB PO (14:51)
[2016-12-06] MEDS ORDERED: IPRASOL NEB (10:01)
[2016-12-06] MEDS ORDERED: BUDE.5I NEB (10:01)
[2016-12-06] MEDS ORDERED: ALBUAER3 INH (10:01)
[2016-12-06] MEDS ORDERED: MONT10TA4 PO (10:01)
[2016-12-06] MEDS ORDERED: OXYGENTANK NAS.CANULA (10:10)
[2016-12-06] MEDS ORDERED: NEBULIZER1 MI1 (11:55)
[2016-12-13] MEDS ORDERED: CYCL5TAB PO (12:20)
[2016-12-22] MEDS ORDERED: LEVA0.637 INH (23:55)
[2016-12-23] MEDS ORDERED: LORA-392 PO (11:32)
[2016-12-28] MEDS ORDERED: NEUR300C PO (20:06)
[2016-12-28] MEDS ORDERED: HYDR-3533 PO (20:06)
[2017-01-12] MEDS ORDERED: CYCL5TAB PO (13:12)
[2017-01-16] MEDS ORDERED: LORA-392 PO (00:50)
[2017-01-19] MEDS ORDERED: NEUR300C PO (20:19)
[2017-01-26] MEDS ORDERED: HYDR-3533 PO (10:17)
[2017-02-03] MEDS ORDERED: CYCL5TAB PO (13:39)
[2017-02-03] MEDS ORDERED: PRED50 PO (13:40)
[2017-02-20] MEDS ORDERED: LORA-392 PO (15:46)
[2017-02-21] MEDS ORDERED: BENZ100 PO (16:09)
[2017-02-21] MEDS ORDERED: PRED20 PO (16:09)
[2017-02-28] MEDS ORDERED: HYDR-3533 PO (13:39)
== END 2016-11-08 01:29 | disposition home or self-care (01) ==
LOC: NEPE 21:14
DX: S09.90XA Unspecified injury of head, initial encounter (principal); E78.00 Pure hypercholesterolemia, unspecified; M19.90 Unspecified osteoarthritis, unspecified site; R29.810 Facial weakness; G51.0 Bell's palsy; J45.909 Unspecified asthma, uncomplicated; W11.XXXA Fall on and from ladder, initial encounter; Y93.H3 Activity, building and construction; Y92.9 Unspecified place or not applicable; Y99.9 Unspecified external cause status
CPT/HCPCS: 70450; 71010; 72125; 72128; 72131

== ENCOUNTER 2016-11-12 05:49 | Observation (INO) | payer OTHER ==
[2016-11-12] VITALS (9 sets, daily range): BP systolic 116–157; BP diastolic 73–96; PULSE 92–110; RESP 18–20; TEMP 97.6–99.1; O2SAT 90–98
[~2016-11-12] VITALS: Ht 152.4 cm; Wt 90.1 kg
[~2016-11-12 05:49] MED LIST changes: +CYCL5TAB PO
[2016-11-12] MEDS ORDERED: methylPREDNISolone SOD SUCC 125 MG/2 ML VIAL IVP ONE (06:30)
[2016-11-12] MEDS ORDERED: SODIUM CHLORIDE 0.9% FLUSH 5 ML FLUSH IVF PRN (06:30)
[2016-11-12] MEDS: RESP: ALBUTEROL 2.5 MG/IPRATROPIUM 0.5 MG NEB (SCH) INH ×2 (06:32→06:33)
[2016-11-12 06:52] LABS: BASOPHIL % 0.4 % (0.0-2.0); EOSINOPHIL # 0.1 TH/MM3 (0-0.4); EOSINOPHIL % 1.2 % (0.0-4.0); HEMATOCRIT 33.8 % (35.0-46.0); HEMO FLAGS DIFF FINAL; LYMPH % 24.1 % (9.0-44.0); LYMPHOCYTE # 2.8 TH/MM3 (1.0-4.8); MEAN CELL VOLUME 85.5 FL (80.0-100.0); MEAN CORPUSCULAR HEMOGLOBIN 27.5 PG (27.0-34.0); MEAN CORPUSCULAR HGB CONC 32.2 % (32.0-36.0); NEUT % 69.3 % (16.0-70.0); PLATELET COUNT 263 TH/MM3 (150-450); RED BLOOD COUNT 3.95 MIL/MM3 (4.00-5.30); RED CELL DISTRIBUTION WIDTH 18.2 % (11.6-17.2); WHITE BLOOD COUNT 11.5 TH/MM3 (4.0-11.0)
[2016-11-12 07:08] LABS: APTT (PATIENT) 23.6 SEC (24.3-30.1); INTERNATIONAL NORMALIZED RATIO 0.9 RATIO
[2016-11-12 07:29] LABS: ALKALINE PHOSPHATASE 96 U/L (45-117); ALT (GPT) 20 U/L (10-53); TOTAL BILIRUBIN ADULT 0.2 MG/DL (0.2-1.0)
[2016-11-12 07:32] LABS: ANION GAP 11 MEQ/L (5-15); AST (GOT) 19 U/L (15-37); BLOOD UREA NITROGEN 25 MG/DL (7-18); CHLORIDE 111 MEQ/L (98-107); GLOMERULAR FILTRATION RATE 51 ML/MIN (>89); SODIUM (NA) 145 MEQ/L (136-145)
[2016-11-12 07:34] LABS: POTASSIUM 3.8 MEQ/L (3.5-5.1)
--- NOTE | 2016-11-12 07:42 | RADRPT ---
EXAM DATE/TIME: 11/12/2016 07:25 [facility] COMPARISON: CHEST SINGLE AP, November 07, 2016, 23:41. CHEST PA & LAT, June 07, 2015, 16:57. INDICATIONS : Shortness of breath, syncopal episode today MEDICAL HISTORY : Cardiovascular disease. Hypercholesterolemia. Asthma. SURGICAL HISTORY : Right breast lumpectomy. ENCOUNTER: Initial ACUITY: 1 day PAIN SCORE: 5/10 LOCATION: Bilateral chest FINDINGS: AP and lateral views of the chest demonstrate a normal-sized cardiac silhouette. Lungs are underinfla jose c with stable linear opacity at the right lung base. No effusion, consolidation, or pneumothorax is appreciated. Bones and soft tissues demonstrate no acute finding. Clips overlie the right axilla. CONCLUSION: Stable chest x-ray. No acute cardiopulmonary abnormality is identified. Low Robert MD on November 12, 2016 at 7:39 Board Certified Radiologist. This report was verified electronically.
[2016-11-12] MEDS ORDERED: RESP: ALBUTEROL 2.5 MG/3 ML NEB (SCH) NEB ONE (08:30)
--- NOTE | 2016-11-12 08:30 | PD ---
HPI Chief Complaint: Respiratory Symptoms Time Seen by Provider: 06:08 Travel History International Travel<30 days: No Contact w/Intl Traveler<30days: No Traveled to known affect area: No History of Present Illness HPI Patient is a 56 year old female who comes in complaining of SOB. She says that this started while she was at [employer] while she was shopping. She says she tried using her nebulizer, but this has not helped. She reports mild chest pain. She denies fever or chills. She denies any nausea or vomiting. She also complains of pain to her left forearm, which she dropped a television on yesterday. PFSH Past Medical History 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) Cardiovascular Problems: Yes High Cholesterol: Yes Chemotherapy: Yes (CA RIGHT BREAST) Chest Pain: No Congestive Heart Failure: No COPD: No Cerebrovascular Accident: No Diabetes: Yes Patient Takes Glucophage: Yes Diminished Hearing: No Endocrine: No Gastrointestinal Disorders: No Genitourinary: No Hypertension: No Immune Disorder: No Implanted Vascular Access Dvce: No Musculoskeletal: Yes (ATHRITIS) Neurologic: No Reproductive: No Respiratory: Yes (COPD) Immunizations Current: Yes Pneumonia: Yes Radiation Therapy: Yes Sleep Apnea: No Thyroid Disease: No ?: Not Menopausal: Yes Past Surgical History Abdominal Surgery: Yes (HERNIA REPAIR) Hysterectomy: No Other Surgery: Yes (right lumpectomy) Social History Alcohol Use: No Tobacco Use: No Substance Use: No Allergies-Medications (Allergen,Severity, Reaction): Coded Allergies: Sulfa (Verified Allergy, Severe, SOB, 11/12/16) rash all over body Vibramycin (Verified Allergy, Severe, ANAPHALACTIC, 11/12/16) Morphine (Verified Allergy, Intermediate, vomiting, 11/12/16) Penicillin (Verified Allergy, Intermediate, Rash, 11/12/16) Tetracycline (Verified Allergy, Intermediate, Rash, 11/12/16) Reported Meds & Prescriptions Reported Meds & Active Scripts Active Flexeril (Cyclobenzaprine HCl) 5 Mg Tab 5 Mg PO TID Lortab (Hydrocodone-Acetaminophen) 5-325 Mg Tab 1 Tab PO DAILY PRN Do not fill until November 25, 2016. Gabapentin 300 Mg Cap 300 Mg PO TID Zovirax (Acyclovir) 800 Mg Tab 800 Mg PO 5 TIMES A DAY Prednisone 20 Mg Tab 20 Mg PO BID Benzonatate 200 Mg Cap 200 Mg PO TID PRN Diazepam 5 Mg Tab 5 Mg PO TID PRN Do not fill until 11/06/2016, thanks Proair Hfa 8.5 GM Inh (Albuterol Sulfate) 90 Mcg/Act Aer 1 Puff INH Q6HR PRN 108 mcg/actuation Albuterol Neb (Albuterol Sulfate) 2.5 Mg/3 Ml Neb 2.5 Mg NEB Q4HR NEB While awake Symbicort Inh (Budesonide/Formoterol Fumarate) 160-4.5 Mcg/Act Aero 2 Puff INH Q12HR Reported Simvastatin 40 Mg Tab 40 Mg PO DAILY Review of Systems Except as stated in HPI: all other systems reviewed are Neg General / Constitutional: No: Fever, Chills HENT: No: Headaches, Lightheadedness Respiratory: Positive: Shortness of Breath, Wheezing Gastrointestinal: No: Nausea, Vomiting Musculoskeletal: No: Myalgias Skin: No Rash, No Change in Pigmentation Neurologic: No: Weakness, Dizziness Physical Exam Narrative GENERAL: Awake and alert, in no acute distress. SKIN: Warm and dry. HEAD: Atraumatic. Normocephalic. EYES: Pupils equal and round. No scleral icterus. ENT: Mucous membranes pink and moist. NECK: Trachea midline. No JVD. CARDIOVASCULAR: Regular rate and rhythm. No murmur appreciated. RESPIRATORY: No accessory muscle use. Wheezing bilaterally. Breath sounds equal bilaterally. GASTROINTESTINAL: Abdomen soft, non-tender, nondistended. MUSCULOSKELETAL: No obvious deformities. No clubbing. No cyanosis. No edema. NEUROLOGICAL: Awake and alert. No obvious cranial nerve deficits. Motor grossly within normal limits. Normal speech. PSYCHIATRIC: Appropriate mood and affect; insight and judgment normal. Data Data Last Documented VS Vital Signs Date Time Temp Pulse Resp B/P Pulse Ox O2 Delivery O2 Flow Rate FiO2 11/12/16 07:08 101 18 116/73 94 Nasal Cannula 2 11/12/16 05:52 98.0 Orders Complete Blood Count With Diff (11/12/16 06:20) Comprehensive Metabolic Panel (11/12/16 06:20) B-Type Natriuretic Peptide (11/12/16 06:20) Act Partial Throm Time (Ptt) (11/12/16 06:20) Prothrombin Time / Inr (Pt) (11/12/16 06:20) Troponin I (11/12/16 06:20) Iv Access Insert/Monitor (11/12/16 06:20) Electrocardiogram (11/12/16 06:20) Ecg Monitoring (11/12/16 06:20) Oximetry (11/12/16 06:20) Oxygen Administration (11/12/16 06:20) Chest, Pa & Lat (11/12/16 06:20) Sodium Chloride 0.9% Flush (Ns Flush) (11/12/16 06:30) Methylprednisolone So Succ Inj (Solumedr (11/12/16 06:30) Albuterol-Ipratropium Neb (Duoneb Neb) (11/12/16 06:30) Albuterol Neb (Albuterol Neb) (11/12/16 08:30) Forearm (2vws) (11/12/16 ) Labs Laboratory Tests Test 11/12/16 06:25 White Blood Count 11.5 TH/MM3 Red Blood Count 3.95 MIL/MM3 Hemoglobin 10.9 GM/DL Hematocrit 33.8 % Mean Corpuscular Volume 85.5 FL Mean Corpuscular Hemoglobin 27.5 PG Mean Corpuscular Hemoglobin 32.2 % Concent Red Cell Distribution Width 18.2 % Platelet Count 263 TH/MM3 Mean Platelet Volume 7.2 FL Neutrophils (%) (Auto) 69.3 % Lymphocytes (%) (Auto) 24.1 % Monocytes (%) (Auto) 5.0 % Eosinophils (%) (Auto) 1.2 % Basophils (%) (Auto) 0.4 % Neutrophils # (Auto) 8.0 TH/MM3 Lymphocytes # (Auto) 2.8 TH/MM3 Monocytes # (Auto) 0.6 TH/MM3 Eosinophils # (Auto) 0.1 TH/MM3 Basophils # (Auto) 0.0 TH/MM3 CBC Comment DIFF FINAL Differential Comment Prothrombin Time 10.0 SEC Prothromb Time International 0.9 RATIO Ratio Activated Partial 23.6 SEC Thromboplast Time Sodium Level 145 MEQ/L Potassium Level 3.8 MEQ/L Chloride Level 111 MEQ/L Carbon Dioxide Level 23.0 MEQ/L Anion Gap 11 MEQ/L Blood Urea Nitrogen 25 MG/DL Creatinine 1.10 MG/DL Estimat Glomerular Filtration 51 ML/MIN Rate Random Glucose 142 MG/DL Calcium Level 8.0 MG/DL Total Bilirubin 0.2 MG/DL Aspartate Amino Transf 19 U/L (AST/SGOT) Alanine Aminotransferase 20 U/L (ALT/SGPT) Alkaline Phosphatase 96 U/L Troponin I LESS THAN 0.02 NG/ML B-Type Natriuretic Peptide 52 PG/ML Total Protein 6.5 GM/DL Albumin 3.3 GM/DL MDM Medical Decision Making Medical Screen Exam Complete: Yes Emergency Medical Condition: Yes Medical Record Reviewed: Yes Differential Diagnosis Asthma exacerbation versus pneumonia versus bronchitis Narrative Course Patient is a 56-year-old female comes in complaining of shortness of breath. Patient's oxygen saturation is 90% on room air. Exam shows wheezing. IV established, labs sent. Patient given 3 duo nebs as well as Solu-Medrol. X-ray shows no acute abnormalities. Labs show slight elevation in white blood cell count 11.5. Patient had very little improvement after treatment. Oxygen saturation is 93% on nasal cannula. Given additional albuterol. Given a dose of Levaquin. We' ll admit for further management. Diagnosis Primary Impression: Asthma Qualified Code: J45.901 - Asthma with acute exacerbation, unspecified asthma severity Admitting Information Admitting Physician Requests: Admit Zakiya Navarrete MD Nov 12, 2016 08:30
[2016-11-12] MEDS ORDERED: LEVOFLOXACIN 750 MG PREMIX INJ 150 ML IV ONE (08:45)
--- NOTE | 2016-11-12 08:56 | RADRPT ---
EXAM DATE/TIME: 11/12/2016 08:35 [facility] COMPARISON: No previous studies available for comparison. INDICATIONS : Left Forearm pain after fall. Bruise midshaft posterior surface. MEDICAL HISTORY : Cardiovascular disease. Hypercholesterolemia. Asthma. SURGICAL HISTORY : Right breast lumpectomy. ENCOUNTER: Initial ACUITY: 1 day PAIN SCORE: 7/10 LOCATION: Left Forearm. FINDINGS: 2 views of the left forearm demonstrate no fracture or dislocation. Mineralization is within normal l imits. No radiopaque foreign body is identified. There is mild soft tissue swelling along the posteri or mid forearm. IV line is present. CONCLUSION: Mild soft tissue swelling posteriorly. No fracture or acute osseous abnormality is identified. Low Robert MD on November 12, 2016 at 8:53 Board Certified Radiologist. This report was verified electronically.
--- NOTE | 2016-11-12 09:55 | HHI.HP ---
[facility] Service Family Medicine Primary Care Physician Jose Johnson MD Admission Diagnosis Asthma exacerbation Diagnoses: International Travel<30 Days: No Contact w/Intl Traveler<30days: No Known Affected Area: No History of Present Illness Patient is a 56-year-old female with past medical history significant for asthma, chronic back pain, bells palsy presenting due to shortness of breath. Patient reports that she began to feel short of breath around 4 AM this morning. She went to [facility] and found that she was having difficulty walking though the store due to her breathing. When she got home she gave herself 2 breathing treatments, which did not cause any noticeable improvement. Breathing is made worse by activity, going up the stairs in her home, alleviated by resting. She has has a cough productive or green sputum, along with body aches and a runny nose for the past 2 days. She endorses a sharp chest pain that started this morning. Pain is located under her left breast, worsened by deep inspirations. No identifiable alleviating factors, no radiation. Patient reports that she was diagnosed with asthma when she was 17, and has been hospitalized numerous times due to asthma exacerbations. She has never required intubation. Yesterday she injured her left arm while attempting to stop a large television from sliding down the stairs. She reports that her arm has been sore since this time. Review of Systems Constitutional: COMPLAINS OF: Chills, DENIES: Fever Eyes: COMPLAINS OF: Blurred vision Ears, nose, mouth, throat: COMPLAINS OF: Running Nose, DENIES: Oral lesions, Throat pain Respiratory: COMPLAINS OF: Cough Cardiovascular: COMPLAINS OF: Chest pain, DENIES: Lower Extremity Edema Gastrointestinal: COMPLAINS OF: Nausea, Vomiting, DENIES: Black stools, Bloody stools, Constipation, Diarrhea Genitourinary: COMPLAINS OF: Dysuria Musculoskeletal: COMPLAINS OF: Joint pain, Muscle aches Integumentary: DENIES: Rash Neurologic: COMPLAINS OF: Headache, Localized weakness (Right side of face) Past Family Social History Past Medical History Right breast cancer diagnosed in 2005 in [place] -- patient underwent lumpectomy with removal of axillary lymph nodes. Patient was followed by Dr. Smith of [facility] Chronic Low Back Pain. Asthma Hyperlipidemia [place] Palsy, recently diagnosed Left foot neuropathy, unknown cause Past Surgical History Abdominal Hernia repair x 3; Umbilical hernia repair Ovarian cyst removal Right breast lumpectomy with removal of axillary lymph nodes; Appendectomy; Throat operation (polyp removal) Reported Medications Reported Meds & Active Scripts Active Flexeril (Cyclobenzaprine HCl) 5 Mg Tab 5 Mg PO TID Lortab (Hydrocodone-Acetaminophen) 5-325 Mg Tab 1 Tab PO DAILY PRN Do not fill until November 25, 2016. Gabapentin 300 Mg Cap 300 Mg PO TID Diazepam 5 Mg Tab 5 Mg PO TID PRN Do not fill until 11/06/2016, thanks Proair Hfa 8.5 GM Inh (Albuterol Sulfate) 90 Mcg/Act Aer 1 Puff INH Q6HR PRN 108 mcg/actuation Albuterol Neb (Albuterol Sulfate) 2.5 Mg/3 Ml Neb 2.5 Mg NEB Q4HR NEB While awake Symbicort Inh (Budesonide/Formoterol Fumarate) 160-4.5 Mcg/Act Aero 2 Puff INH Q12HR Reported Simvastatin 40 Mg Tab 40 Mg PO DAILY Allergies: Coded Allergies: Sulfa (Verified Allergy, Severe, SOB, 11/12/16) rash all over body Vibramycin (Verified Allergy, Severe, ANAPHALACTIC, 11/12/16) Morphine (Verified Allergy, Intermediate, vomiting, 11/12/16) Penicillin (Verified Allergy, Intermediate, Rash, 11/12/16) Tetracycline (Verified Allergy, Intermediate, Rash, 11/12/16) Active Ordered Medications Inpatient Medications Acetaminophen/ Hydrocodone Bitart (Mulberry 5-325 Mg) 1 tab DAILY PRN PO BREAKTHROUGH PAIN Last administered on 11/12/16 10:49; Start 11/12/16 at 10:30 Albuterol Sulfate (Albuterol Neb) 2.5 mg Q2HR NEB PRN NEB SHORTNESS OF BREATH; Start 11/12/16 at 10:45 Albuterol Sulfate 2.5 mg 2.5 mg ONCE ONCE NEB Last administered on 11/12/16 08 :45; Start 11/12/16 at 08:30; Stop 11/12/16 at 08:31; Status DC Albuterol/ Ipratropium (Duoneb Neb) 1 ampule Q4HR NEB NEB ; Start 11/12/16 at 12 :00 Benzonatate (Tessalon) 100 mg TID PRN PO COUGH; Start 11/12/16 at 10:45 Cyclobenzaprine HCl (Flexeril) 5 mg TID PO ; Start 11/12/16 at 13:00 Diazepam (Valium) 5 mg TID PRN PO ANXIETY; Start 11/12/16 at 10:30 Enoxaparin Sodium (Lovenox Inj) 40 mg Q24H SQ ; Start 11/12/16 at 10:45 Gabapentin (Neurontin) 300 mg Q12H PO ; Start 11/12/16 at 21:00 Ipratropium Barnum (Atrovent Neb) 0.5 mg Q6HR NEB PRN NEB SHORTNESS OF BREATH ; Start 11/12/16 at 10:45 IV Flush (NS Flush) 2 ml UNSCH PRN IV FLUSH AFTER USING IV ACCESS; Start at 10:45 Levofloxacin/ Dextrose (Levaquin 750 Mg Premix Inj) 150 ml @ 100 mls/hr ONCE ONCE IV Last administered on 11/12/16 09:00; Start 11/12/16 at 08:45; Stop at 10:21; Status DC Methylprednisolone Sodium Succinate (SoluMEDROL INJ) 125 mg ONCE ONCE IVP Last administered on 11/12/16 07:06; Start 11/12/16 at 06:30; Stop 11/12/16 at 06: 31; Status DC Pravastatin Sodium (Pravachol) 80 mg DAILY PO ; Start 11/13/16 at 09:00 Prednisone (Deltasone) 40 mg BID PO ; Start 11/12/16 at 21:00 Family History Mother - at age 95 from natural causes; H/O Diabetes. Father - at age 60 from GSW. Social History Works through [employer]. Lives in a home and her sister and her live with her Denies tobacco, alcohol, and illicit drug use. Physical Exam Vital Signs Vital Signs Date Time Temp Pulse Resp B/P Pulse Ox O2 Delivery O2 Flow Rate FiO2 11/12/16 08:54 93 21 11/12/16 07:08 101 18 116/73 94 Nasal Cannula 2 11/12/16 06:56 18 95 Nasal Cannula 2 11/12/16 06:56 95 Nasal Cannula 2 11/12/16 05:52 98.0 110 20 129/88 90 Physical Exam GENERAL: This is a well-nourished, well-developed patient, in no apparent respiratory distress. Patient speaking in full sentences SKIN: No rashes, ecchymoses on left forearm. Cool and dry. HEAD: Atraumatic. Normocephalic. EYES: Pupils equal round and reactive. Extraocular motions intact. No scleral icterus. No injection or drainage. ENT: Nose without bleeding, purulent drainage or septal hematoma. Throat without erythema, tonsillar hypertrophy or exudate. Uvula midline. Airway patent. NECK: Trachea midline. No JVD or lymphadenopathy. Supple, nontender, no meningeal signs. CARDIOVASCULAR: Regular rate and rhythm without murmurs, gallops, or rubs. RESPIRATORY: Normal work of breathing, no accessory muscle use. Occasional expiratory wheezing appreciated in upper lung mahmood, L>R. No rales or rhonchi. GASTROINTESTINAL: Abdomen soft, non-tender, nondistended. No hepato-splenomegaly , or palpable masses. No guarding. MUSCULOSKELETAL: Extremities without clubbing, cyanosis, or edema. No joint tenderness, effusion, or edema noted. No calf tenderness. Negative Homans sign bilaterally. NEUROLOGICAL: Awake and alert. Pt with asymmetrical smile, facial drooping on the right side. Pt with blurry vision, difficulty reading near and distant print. CN III-, VIII-XII intact. Pt with 4/5 strength of right upper extremity. Decreased sensation to light touch in left lower extremity, baseline. Five out of 5 muscle strength in all other muscle groups. Normal speech pattern, pt with raspy voice. Laboratory Laboratory Tests Test 11/12/16 06:25 White Blood Count 11.5 Red Blood Count 3.95 Hemoglobin 10.9 Hematocrit 33.8 Mean Corpuscular Volume 85.5 Mean Corpuscular Hemoglobin 27.5 Mean Corpuscular Hemoglobin 32.2 Concent Red Cell Distribution Width 18.2 Platelet Count 263 Mean Platelet Volume 7.2 Neutrophils (%) (Auto) 69.3 Lymphocytes (%) (Auto) 24.1 Monocytes (%) (Auto) 5.0 Eosinophils (%) (Auto) 1.2 Basophils (%) (Auto) 0.4 Neutrophils # (Auto) 8.0 Lymphocytes # (Auto) 2.8 Monocytes # (Auto) 0.6 Eosinophils # (Auto) 0.1 Basophils # (Auto) 0.0 CBC Comment DIFF FINAL Differential Comment Prothrombin Time 10.0 Prothromb Time International 0.9 Ratio Activated Partial 23.6 Thromboplast Time Sodium Level 145 Potassium Level 3.8 Chloride Level 111 Carbon Dioxide Level 23.0 Anion Gap 11 Blood Urea Nitrogen 25 Creatinine 1.10 Estimat Glomerular Filtration 51 Rate Random Glucose 142 Calcium Level 8.0 Total Bilirubin 0.2 Aspartate Amino Transf 19 (AST/SGOT) Alanine Aminotransferase 20 (ALT/SGPT) Alkaline Phosphatase 96 Troponin I LESS THAN 0.02 B-Type Natriuretic Peptide 52 Total Protein 6.5 Albumin 3.3 Result Diagram: 11/12/1662411/12/1625 Imaging Last 24 hours Impressions Chest X-Ray 11/12/16 0620 Signed Impressions: Service Date/Time: Saturday, November 12, 2016 07:25 - CONCLUSION: Stable chest x-ray. No acute cardiopulmonary abnormality is identified. Low Robert MD [facility] X-Ray 11/12/16 0000 Signed Impressions: Service Date/Time: Saturday, November 12, 2016 08:35 - CONCLUSION: Mild soft tissue swelling posteriorly. No fracture or acute osseous abnormality is identified. Low Rboert MD Assessment and Plan Assessment and Plan Patient is a 56-year-old female with past medical history significant for asthma, chronic back pain, bells palsy presenting admitted for observation due to asthma exacerbation. Stable on nasal cannula, does not appear to be in acute respiratory distress. Code Status Full Problem List: (1) Asthma exacerbation Status: Acute Plan: Patient with long-standing history of asthma, admitted due to asthma exacerbation. O2 saturation 90% on room air. Patient currently requiring use of nasal cannula, 2 L. She does not use oxygen at home. White blood cell count slightly elevated to 11.5. -DuoNeb'sQ4hrs -Albuterol nebulizer Q2hrs prn SOB -Symbicort 2 puff, Q12hrs -Atrovent nubulizer Q6hrs prn SON -Prednisone 40 mg po BID -Levaquin 750 mg po daily (11/12- ) -Sputum culture Imaging: Chest x-ray 11/12/16: Stable, no acute cardiopulmonary abnormality identified. History: Patient received Solu-Medrol 125 mg IV 1 while in the ED (2) Chest pain Status: Acute Plan: Pt endorsed intermittent sharp left sided chest pain, reproduced with deep inspiration. Initial troponin less than 0.02, BNP within normal limits at 52. EKG shows sinus tachycardia, no acute ST or T wave changes. -Will check one additional set of cardiac enzymes -Chest pain likely pleuritic, attributable to acute asthma exacerbation (3) Disla's palsy Status: Acute Plan: Patient recently diagnosed with Disla's palsy on 11/07. Pt denies history of CVA, HSV. Her symptoms have been gradually improving, reassuring. -Likely viral -Pt currently receiving steroids, see asthma exacerbation above (4) Dysuria Status: Acute Plan: On review of systems patient endorsed dysuria -Urinalysis ordered, culture if indicated -Patient currently treated with Levaquin, see asthma exacerbation (5) FEN/PPX Status: Acute Plan: Fluids: None Electrolytes: Continue to monitor Nutrition: Diabetic diet GI prophylaxis: Protonix DVT prophylaxis: Lovenox Chronic medical conditions: * Diabetes mellitus: Low-dose Novolin SS, we'll check hemoglobin A1c, pt not on home medications at this time * HLD: Continue on pravastatin * Chronic back pain: Flexeril and Mulberry * Peripheral neuropathy: Gabapentin Alvino Lee MD R2 Nov 12, 2016 09:55
[2016-11-12] MEDS: ENOXAPARIN SODIUM 40 MG/0.4 ML SYRINGE SQ SCH (10:45)
[2016-11-12] MEDS ORDERED: SODIUM CHLORIDE 0.9% FLUSH 5 ML FLUSH IV PRN (10:45)
[2016-11-12] MEDS ORDERED: RESP: ALBUTEROL 2.5 MG/3 ML NEB (PRN) NEB (10:45)
[2016-11-12] MEDS ORDERED: RESP: IPRATROPIUM 0.5 MG/2.5 ML NEB NEB PRN (10:45)
[2016-11-12] MEDS: ACETAMINOPHEN/HYDROcodone 325 MG/5 MG TAB PO PRN ×2 (10:49→17:39)
[2016-11-12] MEDS ORDERED: DEXTROSE 50% IN WATER 50 ML VIAL(D50) IV PUSH PRN (13:00)
[2016-11-12] MEDS ORDERED: GLUCAGON 1 MG/ML VIAL OTHER PRN (13:00)
[2016-11-12] MEDS: RESP: ALBUTEROL 2.5 MG/IPRATROPIUM 0.5 MG NEB (SCH) NEB ×4 (13:15→23:44)
[2016-11-12] MEDS: CYCLOBENZAPRINE HCL 10 MG TAB PO SCH ×2 (13:29→17:39)
[2016-11-12] MEDS ORDERED: GABAPENTIN 300 MG CAP PO ONE (14:00)
[2016-11-12] MEDS: INSULIN ASPART SUPPLEMENTAL SCALE SQ SCH ×2 (16:00→21:00)
[2016-11-12] MEDS: BUDESONIDE-FORMOTEROL 160/4.5 MCG INHALER INH SCH ×2 (16:10→21:31)
[2016-11-12] MEDS: DIAZEPAM 5 MG TAB PO PRN (16:10)
[2016-11-12 17:04] LABS: BACTERIA, URINE RARE /hpf; BLOOD, URINE NEG (NEG); COMMENT (UR) CULT NOT INDICATED; CULTURE IF INDICATED CULT NOT INDICATED; GLUCOSE,URINE NEG (NEG); KETONE, URINE NEG (NEG); MUCUS URINE FEW /lpf (OCC); NITRITE,URINE NEG (NEG); PH, URINE 5.5 (5.0-8.5); SQUAMOUS EPITHELIAL CELL URINE 1 /hpf (0-5); URINE COLOR LIGHT-YELLOW (YELLW/STRAW)
[2016-11-12 17:30] LABS: CREATINE KINASE 105 U/L (26-192); HDL CHOLESTEROL 70.3 MG/DL (40.0-60.0); LDL CHOLESTEROL 136 MG/DL (0-99)
[2016-11-12 17:42] LABS: CKMB 2.2 NG/ML (0.5-3.6)
--- NOTE | 2016-11-12 19:22 | EKG ---
Date Performed: 11/12/2016 Time Performed: 07:16:11 PTAGE: 56 years EKG: SINUS TACHYCARDIA Since previous tracing, no significant change noted ABNORMAL RHYTHM ECG PREVIOUS TRACING : 11/06/2016 22.39 DOCTOR: Krzysztof Villavicencio Interpretating Date/Time 11/12/2016 19:21:37
[2016-11-12] MEDS: GABAPENTIN 300 MG CAP PO SCH (21:26)
[2016-11-12] MEDS: predniSONE 20 MG TAB PO SCH (21:26)
[2016-11-12] MEDS: SODIUM CHLORIDE 0.9% FLUSH 5 ML FLUSH IV SCH (21:27)
[2016-11-13] VITALS (7 sets, daily range): BP systolic 142–157; BP diastolic 84–99; PULSE 88–100; RESP 18–20; TEMP 96–97.8; O2SAT 94–97
[2016-11-13] MEDS: TEMAZEPAM 15 MG CAP PO PRN ×2 (01:04→21:01)
[2016-11-13] MEDS: ACETAMINOPHEN/HYDROcodone 325 MG/5 MG TAB PO PRN ×2 (01:05→05:14)
[2016-11-13] MEDS: RESP: ALBUTEROL 2.5 MG/IPRATROPIUM 0.5 MG NEB (SCH) NEB ×6 (03:32→23:31)
[2016-11-13] MEDS: DIAZEPAM 5 MG TAB PO PRN ×3 (05:14→21:01)
[2016-11-13] MEDS: INSULIN ASPART SUPPLEMENTAL SCALE SQ SCH ×4 (05:17→21:00)
[2016-11-13 08:11] LABS: AUTOMATED NEUTROPHIL # 12.9 TH/MM3 (1.8-7.7); BASOPHIL % 0.2 % (0.0-2.0); EOSINOPHIL % 0.1 % (0.0-4.0); HEMATOCRIT 33.8 % (35.0-46.0); HEMO FLAGS DIFF FINAL; LYMPH % 4.3 % (9.0-44.0); LYMPHOCYTE # 0.6 TH/MM3 (1.0-4.8); MEAN CELL VOLUME 85.1 FL (80.0-100.0); MEAN CORPUSCULAR HEMOGLOBIN 28.2 PG (27.0-34.0); MEAN CORPUSCULAR HGB CONC 33.2 % (32.0-36.0); MONO % 1.7 % (0.0-8.0); NEUT % 93.7 % (16.0-70.0); PLATELET COUNT 286 TH/MM3 (150-450); RED BLOOD COUNT 3.97 MIL/MM3 (4.00-5.30); RED CELL DISTRIBUTION WIDTH 18.4 % (11.6-17.2); WHITE BLOOD COUNT 13.8 TH/MM3 (4.0-11.0)
[2016-11-13 08:38] LABS: BICARBONATE 25.7 MEQ/L (21.0-32.0); POTASSIUM 4.1 MEQ/L (3.5-5.1)
[2016-11-13] MEDS: predniSONE 20 MG TAB PO SCH ×2 (08:57→21:01)
[2016-11-13] MEDS: CYCLOBENZAPRINE HCL 10 MG TAB PO SCH ×3 (08:57→18:05)
[2016-11-13] MEDS: GABAPENTIN 300 MG CAP PO SCH ×2 (08:57→21:01)
[2016-11-13] MEDS: PRAVASTATIN SOD 80 MG TAB PO SCH (08:57)
[2016-11-13] MEDS: PANTOPRAZOLE SOD 40 MG DELAYED RELEASE TAB PO SCH (08:57)
[2016-11-13] MEDS: SODIUM CHLORIDE 0.9% FLUSH 5 ML FLUSH IV SCH ×2 (08:59→21:04)
[2016-11-13] MEDS ORDERED: LEVOFLOXACIN 750 MG TAB PO SCH (09:00)
[2016-11-13] MEDS: BUDESONIDE-FORMOTEROL 160/4.5 MCG INHALER INH SCH ×2 (09:00→21:02)
[2016-11-13] MEDS: BENZONATATE 100 MG CAP PO PRN ×2 (09:01→18:13)
[2016-11-13] MEDS: oxyCODONE/ACETAMINOPHEN 5 MG/325 MG TAB PO PRN ×3 (09:01→21:08)
[2016-11-13] MEDS ORDERED: INFLUENZA VIRUS VACCINE (QUADRIVALENT) 0.5 ML SYR IM ONE (10:00)
--- NOTE | 2016-11-13 10:21 | HHI.HP ---
[facility] Service Family Medicine Primary Care Physician Jose Johnson MD Admission Diagnosis Asthma exacerbation Diagnoses: (1) Asthma exacerbation Diagnosis: Principal (2) Chest pain Diagnosis: Principal (3) Disla's palsy Diagnosis: Principal (4) Dysuria Diagnosis: Principal (5) FEN/PPX Diagnosis: Principal International Travel<30 Days: No Contact w/Intl Traveler<30days: No Known Affected Area: No History of Present Illness Ms Caldwell is a 56-year-old female with past medical history significant for asthma, chronic back pain, bells palsy on the right presenting due to shortness of breath. Patient reports that she began to feel short of breath around 4 AM the morning of admission. She went to [facility] and found that she was having difficulty walking though the store due to her breathing. When she got home she gave herself 2 breathing treatments, which did not cause any noticeable improvement. Breathing is made worse by activity, going up the stairs in her home, alleviated by resting. She has has a cough productive or green sputum, along with body aches and a runny nose for the past 2 days. She endorses a sharp chest pain that started this morning. Pain is located under her left breast, worsened by deep inspirations. No identifiable alleviating factors, no radiation. Patient reports that she was diagnosed with asthma when she was 17, and has been hospitalized numerous times due to asthma exacerbations. She has never required intubation. Yesterday she injured her left arm while attempting to stop a large television from sliding down the stairs. She reports that her arm has been sore since this time. Overnight she has had some improvement but does not feel completely back to baseline. She reports she still wheezes but just had a breathing treatment prior to my seeing her and she was fortunately able to move air well. Mina arm is not broken per pt but is very sore and bruised. Review of Systems Respiratory: COMPLAINS OF: Cough, Wheezing, Shortness of breath Musculoskeletal: COMPLAINS OF: Joint pain, Muscle aches, Stiffness, Joint Swelling Neurologic: DENIES: Abnormal gait, Speech Problems, Poor Balance Other Constitutional: COMPLAINS OF: Chills, DENIES: Fever Eyes: COMPLAINS OF: Blurred vision Ears, nose, mouth, throat: COMPLAINS OF: Running Nose, DENIES: Oral lesions, Throat pain Respiratory: COMPLAINS OF: Cough Cardiovascular: COMPLAINS OF: Chest pain, DENIES: Lower Extremity Edema Gastrointestinal: COMPLAINS OF: Nausea, Vomiting, DENIES: Black stools, Bloody stools, Constipation, Diarrhea Genitourinary: COMPLAINS OF: Dysuria Musculoskeletal: COMPLAINS OF: Joint pain, Muscle aches Integumentary: DENIES: Rash Neurologic: COMPLAINS OF: Headache, Localized weakness (Right side of face) Past Family Social History Past Medical History Right breast cancer diagnosed in 2005 in [place] -- patient underwent lumpectomy with removal of axillary lymph nodes. Patient was followed by Dr. Smith of [facility] Chronic Low Back Pain. Asthma Hyperlipidemia Raymond Palsy, recently diagnosed on right not severe Left foot neuropathy, unknown cause Past Surgical History Abdominal Hernia repair x 3; Umbilical hernia repair Ovarian cyst removal Right breast lumpectomy with removal of axillary lymph nodes; Appendectomy; Throat operation (polyp removal) Allergies: Coded Allergies: Sulfa (Verified Allergy, Severe, SOB, 11/12/16) rash all over body Vibramycin (Verified Allergy, Severe, ANAPHALACTIC, 11/12/16) Morphine (Verified Allergy, Intermediate, vomiting, 11/12/16) Penicillin (Verified Allergy, Intermediate, Rash, 11/12/16) Tetracycline (Verified Allergy, Intermediate, Rash, 11/12/16) Family History Mother - at age 95 from natural causes; H/O Diabetes. Father - at age 60 from [place]. Social History Works through [employer]. Lives in a home and her sister and her live with her Denies tobacco, alcohol, and illicit drug use. Physical Exam Vital Signs Vital Signs Date Time Temp Pulse Resp B/P Pulse Ox O2 Delivery O2 Flow Rate FiO2 11/13/16 08:57 97 21 11/13/16 08:00 96.5 88 18 154/99 96 11/13/16 06:23 16 11/13/16 04:00 97.0 99 20 157/93 94 11/13/16 02:30 16 11/12/16 20:19 94 21 11/12/16 20:00 97.6 92 18 133/84 94 11/12/16 17:00 99.1 95 20 157/88 94 11/12/16 13:30 98.8 94 18 141/96 98 11/12/16 10:45 98 18 125/78 95 Nasal Cannula 2 Physical Exam GENERAL: This is a well-nourished, well-developed patient, in no apparent respiratory distress. Patient speaking in full sentences. SKIN: No rashes, ecchymoses on left forearm. Cool and dry. HEAD: Atraumatic. Normocephalic. EYES: Pupils equal round and reactive. Extraocular motions intact. No scleral icterus. No injection or drainage. ENT: Nose without bleeding, purulent drainage or septal hematoma. Airway patent. NECK: Trachea midline. No JVD or lymphadenopathy. Supple, nontender, no meningeal signs. CARDIOVASCULAR: Regular rate and rhythm without murmurs, gallops, or rubs. RESPIRATORY: Normal work of breathing, no accessory muscle use. Occasional expiratory wheezing appreciated in upper lung mahmood, L>R. No rales or rhonchi. some decreased air movement GASTROINTESTINAL: Abdomen soft, non-tender, nondistended. No hepato-splenomegaly , or palpable masses. No guarding. MUSCULOSKELETAL: Extremities without clubbing, cyanosis, or edema. No joint tenderness, effusion, or edema noted. No calf tenderness. Negative Homans sign bilaterally. NEUROLOGICAL: Awake and alert. Pt with asymmetrical smile, facial drooping on the right side subtle. Pt with blurry vision, difficulty reading near and distant print. CN III-, VIII-XII intact. Pt with 4/5 strength of right upper extremity. Decreased sensation to light touch in left lower extremity, baseline. Five out of 5 muscle strength in all other muscle groups. Normal speech pattern, pt with raspy voice. Laboratory Laboratory Tests Test 11/12/16 11/12/16 11/13/16 14:25 16:09 08:00 Urine Color LIGHT-YELLOW Urine Turbidity CLEAR Urine pH 5.5 Urine Specific [place] 1.011 Urine Protein NEG Urine Glucose (UA) NEG Urine Ketones NEG Urine Occult Blood NEG Urine Nitrite NEG Urine Bilirubin NEG Urine Urobilinogen LESS THAN 2.0 Urine Leukocyte Esterase NEG Urine RBC LESS THAN 1 Urine WBC 2 Urine Squamous Epithelial 1 Cells Urine Bacteria RARE Urine Mucus FEW Microscopic Urinalysis Comment CULT NOT INDICATED Total Creatine Kinase 105 Creatine Kinase MB 2.2 Troponin I LESS THAN 0.02 Triglycerides Level 136 Cholesterol Level 233 LDL Cholesterol 136 HDL Cholesterol 70.3 Cholesterol/HDL Ratio 3.31 White Blood Count 13.8 Red Blood Count 3.97 Hemoglobin 11.2 Hematocrit 33.8 Mean Corpuscular Volume 85.1 Mean Corpuscular Hemoglobin 28.2 Mean Corpuscular Hemoglobin 33.2 Concent Red Cell Distribution Width 18.4 Platelet Count 286 Mean Platelet Volume 7.1 Neutrophils (%) (Auto) 93.7 Lymphocytes (%) (Auto) 4.3 Monocytes (%) (Auto) 1.7 Eosinophils (%) (Auto) 0.1 Basophils (%) (Auto) 0.2 Neutrophils # (Auto) 12.9 Lymphocytes # (Auto) 0.6 Monocytes # (Auto) 0.2 Eosinophils # (Auto) 0.0 Basophils # (Auto) 0.0 CBC Comment DIFF FINAL Differential Comment Sodium Level 139 Potassium Level 4.1 Chloride Level 103 Carbon Dioxide Level 25.7 Anion Gap 10 Blood Urea Nitrogen 26 Creatinine 1.12 Estimat Glomerular Filtration 50 Rate Random Glucose 158 Calcium Level 8.5 Date/Time Procedure Status Source Growth 11/12/16 21:47 Influenza Types A,B Antigen (JOAQUIN) - Final Complete Nasal Washing NEGATIVE FOR FLU A AND B ANTIGEN.... 11/12/16 14:25 Gram Stain - Final Resulted Sputum Expectorated Sputum 11/12/16 14:25 Sputum Culture Resulted Sputum Expectorated Sputum Pending Result Diagram: 11/13/16 0800 11/13/16 0800 Imaging Last 24 hours Impressions Chest X-Ray 11/12/16 0620 Signed Impressions: Service Date/Time: Saturday, November 12, 2016 07:25 - CONCLUSION: Stable chest x-ray. No acute cardiopulmonary abnormality is identified. Low Robert MD Radius/Ulna X-Ray 11/12/16 0000 Signed Impressions: Service Date/Time: Saturday, November 12, 2016 08:35 - CONCLUSION: Mild soft tissue swelling posteriorly. No fracture or acute osseous abnormality is identified. Low Robert MD Assessment and Plan Assessment and Plan Patient is a 56-year-old female with past medical history significant for asthma, chronic back pain, bells palsy presenting admitted for observation due to asthma exacerbation. Stable on nasal cannula, does not appear to be in acute respiratory distress. Based on improvement overall, hope for D/C home in next day or so Problem List: (1) Asthma exacerbation Status: Acute Plan: Patient with long-standing history of asthma, admitted due to asthma exacerbation. O2 saturation 90% on room air. Patient currently requiring use of nasal cannula, 2 L. She does not use oxygen at home. White blood cell count slightly elevated to 11.5. -DuoNeb'sQ4hrs -Albuterol nebulizer Q2hrs prn SOB -Symbicort 2 puff, Q12hrs -Atrovent nubulizer Q6hrs prn SON -Prednisone 40 mg po BID, can taper -Levaquin 750 mg po daily (11/12- ) -Sputum culture Imaging: Chest x-ray 11/12/16: Stable, no acute cardiopulmonary abnormality identified. History: Patient received Solu-Medrol 125 mg IV 1 while in the ED (2) Chest pain Status: Acute Plan: Pt endorsed intermittent sharp left sided chest pain, reproduced with deep inspiration. Initial troponin less than 0.02, BNP within normal limits at 52. EKG shows sinus tachycardia, no acute ST or T wave changes. -Will check one additional set of cardiac enzymes -Chest pain likely pleuritic, attributable to acute asthma exacerbation (3) Disla's palsy Status: Acute Plan: Patient recently diagnosed with Disla's palsy on 11/07. Pt denies history of CVA, HSV. Her symptoms have been gradually improving, reassuring. -Likely viral -Pt currently receiving steroids, see asthma exacerbation above (4) Dysuria Status: Acute Plan: On review of systems patient endorsed dysuria -Urinalysis ordered, culture if indicated -Patient currently treated with Levaquin, see asthma exacerbation (5) FEN/PPX Status: Acute Plan: Fluids: None Electrolytes: Continue to monitor Nutrition: Diabetic diet GI prophylaxis: Protonix DVT prophylaxis: Lovenox Chronic medical conditions: * Diabetes mellitus: Low-dose Novolin SS, we'll check hemoglobin A1c, pt not on home medications at this time. steroids could increase glucoses * HLD: Continue on pravastatin * Chronic back pain: Flexeril and [place] * Peripheral neuropathy: Gabapentin Problem Qualifiers (1) Chest pain: Qualified Code: R07.1 - Chest pain on breathing Kirti Magallon MD Nov 13, 2016 10:21
[2016-11-13] MEDS: ENOXAPARIN SODIUM 40 MG/0.4 ML SYRINGE SQ SCH (12:08)
[2016-11-13] MEDS: MORPHINE SULFATE 4 MG/ML INJ IV PUSH PRN ×3 (12:10→23:49)
--- NOTE | 2016-11-13 14:25 | EKG ---
Date Performed: 11/12/2016 Time Performed: 15:22:25 PTAGE: 56 years EKG: Sinus rhythm NORMAL ECG Compared to prior tracing no significant change PREVIOUS TRACING : 11/12/2016 07.16 DOCTOR: Krzysztof Villavicencio Interpretating Date/Time 11/13/2016 14:23:42
[2016-11-14] VITALS (9 sets, daily range): BP systolic 128–150; BP diastolic 74–99; PULSE 91–112; RESP 18–22; TEMP 96–98.4; O2SAT 95–100
[2016-11-14] MEDS: oxyCODONE/ACETAMINOPHEN 5 MG/325 MG TAB PO PRN ×3 (02:29→17:15)
[2016-11-14] MEDS: RESP: ALBUTEROL 2.5 MG/IPRATROPIUM 0.5 MG NEB (SCH) NEB ×5 (03:16→20:28)
[2016-11-14] MEDS: INSULIN ASPART SUPPLEMENTAL SCALE SQ SCH ×4 (06:24→21:00)
[2016-11-14 07:53] LABS: AUTOMATED NEUTROPHIL # 9.7 TH/MM3 (1.8-7.7); BASOPHIL % 0.2 % (0.0-2.0); EOSINOPHIL % 0.1 % (0.0-4.0); HEMATOCRIT 33.6 % (35.0-46.0); HEMO FLAGS DIFF FINAL; LYMPHOCYTE # 0.5 TH/MM3 (1.0-4.8); MEAN CELL VOLUME 86.1 FL (80.0-100.0); MEAN CORPUSCULAR HEMOGLOBIN 28.1 PG (27.0-34.0); MEAN CORPUSCULAR HGB CONC 32.6 % (32.0-36.0); MONO % 2.8 % (0.0-8.0); NEUT % 91.9 % (16.0-70.0); PLATELET COUNT 288 TH/MM3 (150-450); RED CELL DISTRIBUTION WIDTH 18.7 % (11.6-17.2); WHITE BLOOD COUNT 10.5 TH/MM3 (4.0-11.0)
[2016-11-14 08:12] LABS: POTASSIUM 4.7 MEQ/L (3.5-5.1)
[2016-11-14 08:48] LABS: HEMOGLOBIN A1a 0.9 %; HEMOGLOBIN A1b 2.3 %; HEMOGLOBIN Ao 83.2 %; HEMOGLOBIN LA1C 2.4 %; HEMOGLOBIN P3 5.8 %
--- NOTE | 2016-11-14 08:48 | HHI.FPPN ---
Subjective Remarks Pt seen and examined this morning. AFVSS except for mild tachycardia, likely secondary to albuterol and stress as patient admits being worked up and worrying about issues at home. Reports breathing is better but still feeling some tightness in her chest and complaining of cough. Ambulating without difficulty. Has been off supplemental O2. Tolerating PO without N/V. Endorses chronic left foot burning and numbness; would like to increase gabapentin. She does not feel ready to go home today. (Andreia Figueroa MD) Objective Vitals Vital Signs Date Time Temp Pulse Resp B/P Pulse Ox O2 Delivery O2 Flow Rate FiO2 11/14/16 08:00 98.0 107 18 133/99 96 11/14/16 07:29 98 21 11/14/16 04:00 96.0 112 22 129/74 96 11/14/16 03:50 16 11/14/16 00:00 96.3 100 20 133/90 96 11/14/16 00:00 16 11/13/16 20:00 97.2 100 20 153/84 96 11/13/16 19:46 96 11/13/16 16:00 96.0 96 20 142/84 11/13/16 11:53 97.8 97 147/98 11/13/16 08:57 97 21 I/O 11/13/16 11/13/16 11/13/16 11/14/16 11/14/16 11/14/16 07:00 15:00 23:00 07:00 15:00 23:00 Intake Total 720 ml 960 ml 480 ml 720 ml Balance 720 ml 960 ml 480 ml 720 ml Intake Oral 720 ml 960 ml 480 ml 720 ml # Voids 5 7 2 4 # Bowel Movements 0 0 (Andreia Figueroa MD) Result Diagram: 11/14/16 0637 11/14/16 0637 Objective Remarks GENERAL: WN, WD obese female, sitting up comfortably in chair, conversant, NAD. SKIN: Warm and dry. HEENT: Pupils equal and round. MMM. HEART: Tachycardic without m/r/g. LUNGS: Breathing comfortably on room air. Speaking in complete sentences. CTAB without wheezes or crackles. ABDOMEN: Soft, NT, ND. EXTREMITIES: No LE edema. Left wrist with bruising and mild swelling. TTP when squeezed. NEURO: Awake and alert. Afocal. PSYCH: Appropriate mood and affect. (Andreia Figueroa MD) A/P Assessment and Plan 56-year-old female with asthma, anxiety, chronic back pain, and recent diagnosis of [place] palsy admitted on 11/12 for asthma exacerbation. Discharge Planning Anticipate D/C later today or tomorrow pending clinical improvement. (Andreia Figueroa MD) Attending Attestation Patient seen and examined. Case reviewed and discussed with the resident team. Agree with plan of care as discussed with me and documented in the resident note. (Kirti Magallon MD) Problem List: (1) Asthma exacerbation Status: Acute Plan: Patient with long-standing history of asthma admitted due to asthma exacerbation. CXR on admission showed no acute findings. Exam improving but still with subjective tightness in chest. Not requiring supplemental O2. - DuoNeb Q4H SUYAPA - Albuterol neb Q2H PRN SOB - Prednisone 40 mg PO BID. Taper tomorrow - Levaquin 750 mg PO daily (started 11/12). Will plan to treat for 5 day course - Continue home Symbicort and Atroven - Sputum culture with normal george - Negative influenza (2) Left wrist sprain Status: Acute Plan: XR of left wrist shows mild soft tissue swelling with no fracture. - Percocet PRN (Lortab did not help the pain) (3) Neuropathy Status: Chronic Plan: Unclear etiology since it is isolated to the left foot and patient is not a diabetic. Increase gabapentin to 400 mg PO BID. (4) Disla's palsy Status: Chronic Plan: Patient recently diagnosed with Disla's palsy on 11/07 likely viral etiology. Pt denies history of CVA, HSV. Her symptoms have been gradually improving, reassuring. - Currently on steroids for asthma which will help the Disla's palsy (5) Anxiety Status: Chronic Plan: Continue home Valium. (6) Prediabetes Status: Chronic Plan: A1c 6.1. Not on home medications. Continue low-dose SSI per protocol. (7) FEN/PPX Status: Acute Plan: - Fluids: Tolerating PO - Electrolytes: WNL - Nutrition: Diabetic diet - GI prophylaxis: Protonix 40 mg PO daily - DVT prophylaxis: Lovenox 40 mg SQ daily Chronic conditions not being acutely managed: - HLD: Continue home statin - Chronic back pain: Continue home Flexeril dw Dr. Magallon (Andreia Figueroa MD) Andreia Figueroa MD Nov 14, 2016 08:48 Kirti Magallon MD Nov 19, 2016 14:08
[2016-11-14] MEDS: CYCLOBENZAPRINE HCL 10 MG TAB PO SCH ×3 (10:05→17:15)
[2016-11-14] MEDS: PANTOPRAZOLE SOD 40 MG DELAYED RELEASE TAB PO SCH (10:05)
[2016-11-14] MEDS: PRAVASTATIN SOD 80 MG TAB PO SCH (10:05)
[2016-11-14] MEDS: predniSONE 20 MG TAB PO SCH ×2 (10:05→21:26)
[2016-11-14] MEDS: ENOXAPARIN SODIUM 40 MG/0.4 ML SYRINGE SQ SCH (10:06)
[2016-11-14] MEDS: SODIUM CHLORIDE 0.9% FLUSH 5 ML FLUSH IV SCH ×2 (10:06→21:27)
[2016-11-14] MEDS: BUDESONIDE-FORMOTEROL 160/4.5 MCG INHALER INH SCH ×2 (10:07→21:28)
[2016-11-14] MEDS: DIAZEPAM 5 MG TAB PO PRN ×2 (10:10→18:19)
[2016-11-14] MEDS: MORPHINE SULFATE 4 MG/ML INJ IV PUSH PRN ×3 (13:32→21:32)
[2016-11-14] MEDS: GABAPENTIN 400 MG CAP PO SCH (21:26)
[2016-11-14] MEDS: TEMAZEPAM 15 MG CAP PO PRN (21:26)
[2016-11-15] VITALS: BP 123/72; PULSE 115; RESP 18; TEMP 97; O2SAT 99
[2016-11-15] MEDS: RESP: ALBUTEROL 2.5 MG/IPRATROPIUM 0.5 MG NEB (SCH) NEB ×4 (00:20→11:40)
[2016-11-15] MEDS: oxyCODONE/ACETAMINOPHEN 5 MG/325 MG TAB PO PRN ×3 (00:43→11:44)
[2016-11-15 04:00] VITALS: BP 135/55; PULSE 100; RESP 17; TEMP 97; O2SAT 95
[2016-11-15] MEDS: DIAZEPAM 5 MG TAB PO PRN (05:23)
[2016-11-15] MEDS: INSULIN ASPART SUPPLEMENTAL SCALE SQ SCH (07:00)
--- NOTE | 2016-11-15 07:21 | HHI.FF ---
Face to Face Verification Diagnosis: (1) Asthma exacerbation Physical Therapy Order: Evaluate and Treat, Improve ambulation, Strength and gait training Home Health Nursing Order: Nursing assessment with vital signs I have seen patient Yomaira Caldwell on 11/15/16. My clinical findings support the need for the requested home health care services because: Patient has SOB Deconditioned w/ increased weakness High risk of falls I certify that my clinical findings support that this patient is homebound because: Hx COPD- exertion dyspnea/weakness Unsteady gait/balance Andreia Figueroa MD Nov 15, 2016 07:21
[2016-11-15 08:00] VITALS: BP 134/91; PULSE 102; RESP 18; TEMP 97.7; O2SAT 98
[2016-11-15] MEDS: MORPHINE SULFATE 4 MG/ML INJ IV PUSH PRN (08:13)
[2016-11-15] MEDS: GABAPENTIN 400 MG CAP PO SCH (08:13)
[2016-11-15] MEDS: CYCLOBENZAPRINE HCL 10 MG TAB PO SCH ×2 (08:14→11:43)
[2016-11-15] MEDS: PRAVASTATIN SOD 80 MG TAB PO SCH (08:14)
[2016-11-15] MEDS: PANTOPRAZOLE SOD 40 MG DELAYED RELEASE TAB PO SCH (08:14)
[2016-11-15] MEDS: BUDESONIDE-FORMOTEROL 160/4.5 MCG INHALER INH SCH (08:14)
[2016-11-15] MEDS: predniSONE 20 MG TAB PO SCH (08:14)
[2016-11-15] MEDS: SODIUM CHLORIDE 0.9% FLUSH 5 ML FLUSH IV SCH (08:15)
[2016-11-15 08:25] VITALS: O2SAT 100
[2016-11-15] MEDS ORDERED: LEVOFLOXACIN 750 MG TAB PO SCH ×2 (09:00)
[2016-11-15] MEDS ORDERED: OXYC1TAB63 PO (09:57)
[2016-11-15] MEDS ORDERED: PRED20 PO (09:57)
[2016-11-15] MEDS ORDERED: LEVA750T PO (09:57)
[2016-11-15] MEDS ORDERED: NEUR400C PO (09:57)
[2016-11-15] MEDS ORDERED: ADJUST ALUMINUM1 MI1 (09:58)
--- NOTE | 2016-11-15 10:24 | HHI.FPPN ---
Subjective Remarks Pt seen and examined this morning. AFVSS. No acute events overnight. Reports she is feeling better. Agreeable to going home today. Denies chest pain, shortness of breath, abdominal pain, nausea, or vomiting. She is ambulating the halls and tolerating a diet. She continues to have a dry cough. (Andreia Figueroa MD) Objective Vitals Vital Signs Date Time Temp Pulse Resp B/P Pulse Ox O2 Delivery O2 Flow Rate FiO2 11/15/16 08:25 100 21 11/15/16 08:00 97.7 102 18 134/91 98 11/15/16 04:00 97.0 100 17 135/55 95 11/15/16 00:00 97.0 115 18 123/72 99 11/14/16 22:32 20 11/14/16 20:28 96 11/14/16 20:00 96.8 91 19 150/93 100 11/14/16 18:14 109 142/94 11/14/16 16:00 98.4 103 18 128/90 95 11/14/16 14:10 2.00 11/14/16 13:00 97.6 99 20 140/94 95 I/O 11/14/16 11/14/16 11/14/16 11/15/16 11/15/16 11/15/16 07:00 15:00 23:00 07:00 15:00 23:00 Intake Total 720 ml 1080 ml 480 ml Balance 720 ml 1080 ml 480 ml Intake Oral 720 ml 1080 ml 480 ml # Voids 4 5 5 2 # Bowel Movements 0 0 (Andreia Figueroa MD) Result Diagram: 11/14/1637 11/14/16 0637 Objective Remarks GENERAL: WN, WD obese female, laying comfortably in bed in NAD. SKIN: Warm and dry. HEENT: Pupils equal and round. MMM. HEART: Tachycardic without m/r/g. LUNGS: Breathing comfortably on room air. Speaking in complete sentences. CTAB without wheezes or crackles. ABDOMEN: Soft, NT, ND. EXTREMITIES: No LE edema. Left wrist with bruising and mild swelling. NEURO: Awake and alert. Afocal. PSYCH: Appropriate mood and affect. (Andreia Figueroa MD) A/P Assessment and Plan 56-year-old female with asthma, anxiety, chronic back pain, and recent diagnosis of [place] palsy admitted on 11/12 for asthma exacerbation. She has improved with steroids, breathing treatments, and antibiotics. She is stable for discharge. Discharge Planning D/C home today. Case management assisting with home health. (Andreia Figueroa MD) Attending Attestation Patient seen and examined. Case reviewed and discussed with the resident team. Agree with plan of care as discussed with me and documented in the resident note. she is walking the halls with no problems and no need for oxygen (Kirti Magallon MD) Problem List: (1) Asthma exacerbation Status: Acute Plan: Patient with long-standing history of asthma admitted for exacerbation. CXR on admission showed no acute findings. Clinically improved and not requiring supplemental O2. - DuoNeb Q4H SUYAPA - Albuterol neb Q2H PRN SOB - Prednisone 40 mg PO daily - Levaquin 750 mg PO daily (started 11/12). Will plan to treat for 5 day course - Continue home Symbicort and Atrovent - Sputum culture with normal george - Negative influenza (2) Left wrist sprain Status: Acute Plan: XR of left wrist shows mild soft tissue swelling with no fracture. - Percocet PRN (Lortab did not help the pain) (3) Neuropathy Status: Chronic Plan: Unclear etiology since it is isolated to the left foot and patient is not a diabetic. Increase gabapentin to 400 mg PO BID. (4) Disla's palsy Status: Chronic Plan: Patient recently diagnosed with Disla's palsy on 11/07 likely viral etiology. Pt denies history of CVA, HSV. Her symptoms have been gradually improving, reassuring. - Currently on steroids for asthma which will help the Disla's palsy (5) Anxiety Status: Chronic Plan: Continue home Valium. (6) Prediabetes Status: Chronic Plan: A1c 6.1. Not on home medications. Continue low-dose SSI per protocol. (7) FEN/PPX Status: Acute Plan: - Fluids: Tolerating PO - Electrolytes: WNL - Nutrition: Diabetic diet Chronic conditions not being acutely managed: - HLD: Continue home statin - Chronic back pain: Continue home Flexeril dw Dr. Magallon (Andreia Figueroa MD) Andreia Figueroa MD Nov 15, 2016 10:24 Kirti Magallon MD Nov 19, 2016 14:09
--- NOTE | 2016-11-15 10:27 | HHI.DS ---
Discharge Summary Admission Date Nov 12, 2016 at 09:03 Discharge Date: Nov 15, 2016 Admitting Diagnosis Asthma exacerbation (1) Asthma exacerbation Plan: Patient with long-standing history of asthma admitted for exacerbation. CXR on admission showed no acute findings. Clinically improved and not requiring supplemental O2. - DuoNeb Q4H SUYAPA - Albuterol neb Q2H PRN SOB - Prednisone 40 mg PO daily - Levaquin 750 mg PO daily (started 11/12). Will plan to treat for 5 day course - Continue home Symbicort and Atrovent - Sputum culture with normal george - Negative influenza (2) Left wrist sprain Plan: XR of left wrist shows mild soft tissue swelling with no fracture. - Percocet PRN (Lortab did not help the pain) (3) Neuropathy Plan: Unclear etiology since it is isolated to the left foot and patient is not a diabetic. Increase gabapentin to 400 mg PO BID. (4) Disla's palsy Plan: Patient recently diagnosed with Disla's palsy on 11/07 likely viral etiology. Pt denies history of CVA, HSV. Her symptoms have been gradually improving, reassuring. - Currently on steroids for asthma which will help the Disla's palsy (5) Anxiety Plan: Continue home Valium. (6) Prediabetes Plan: A1c 6.1. Not on home medications. Continue low-dose SSI per protocol. Brief History Ms Caldwell is a 56-year-old female with past medical history significant for asthma, chronic back pain, bells palsy on the right presenting due to shortness of breath. Patient reports that she began to feel short of breath around 4 AM the morning of admission. She went to [facility] and found that she was having difficulty walking though the store due to her breathing. When she got home she gave herself 2 breathing treatments, which did not cause any noticeable improvement. Breathing is made worse by activity, going up the stairs in her home, alleviated by resting. She has has a cough productive or green sputum, along with body aches and a runny nose for the past 2 days. She endorses a sharp chest pain that started this morning. Pain is located under her left breast, worsened by deep inspirations. No identifiable alleviating factors, no radiation. Patient reports that she was diagnosed with asthma when she was 17, and has been hospitalized numerous times due to asthma exacerbations. She has never required intubation. Yesterday she injured her left arm while attempting to stop a large television from sliding down the stairs. She reports that her arm has been sore since this time. Overnight she has had some improvement but does not feel completely back to baseline. She reports she still wheezes but just had a breathing treatment prior to my seeing her and she was fortunately able to move air well. Mina arm is not broken per pt but is very sore and bruised. CBC/BMP: 11/14/16 0637 11/14/16 0637 Significant Findings Laboratory Tests Test 11/12/16 11/12/16 11/13/16 11/14/16 14:25 16:09 08:00 06:37 Urine Bacteria RARE /hpf (NONE) Urine Mucus FEW /lpf (OCC) Troponin I LESS THAN 0.02 NG/ML (0.02-0.05) Hemoglobin A1c 6.2 % (4.3-6.0) Cholesterol Level 233 MG/DL (120-200) LDL Cholesterol 136 MG/DL (0-99) HDL Cholesterol 70.3 MG/DL (40.0-60.0) White Blood Count 13.8 TH/MM3 (4.0-11.0) Red Blood Count 3.97 MIL/MM3 3.90 MIL/MM3 (4.00-5.30) (4.00-5.30) Hemoglobin 11.2 GM/DL 11.0 GM/DL (11.6-15.3) (11.6-15.3) Hematocrit 33.8 % 33.6 % (35.0-46.0) (35.0-46.0) Red Cell Distribution Width 18.4 % 18.7 % (11.6-17.2) (11.6-17.2) Neutrophils (%) (Auto) 93.7 % 91.9 % (16.0-70.0) (16.0-70.0) Lymphocytes (%) (Auto) 4.3 % 5.0 % (9.0-44.0) (9.0-44.0) Neutrophils # (Auto) 12.9 TH/MM3 9.7 TH/MM3 (1.8-7.7) (1.8-7.7) Lymphocytes # (Auto) 0.6 TH/MM3 0.5 TH/MM3 (1.0-4.8) (1.0-4.8) Blood Urea Nitrogen 26 MG/DL (7-18) 27 MG/DL (7-18) Creatinine 1.12 MG/DL (0.50-1.00) Estimat Glomerular Filtration 50 ML/MIN (>89) 57 ML/MIN (>89) Rate Random Glucose 158 MG/DL 162 MG/DL (74-106) (74-106) Calcium Level 8.1 MG/DL (8.5-10.1) Imaging Chest X-Ray 11/12/16 0620 Signed Impressions: Service Date/Time: Saturday, November 12, 2016 07:25 - CONCLUSION: Stable chest x-ray. No acute cardiopulmonary abnormality is identified. Low Robert MD Radius/Ulna X-Ray 11/12/16 0000 Signed Impressions: Service Date/Time: Saturday, November 12, 2016 08:35 - CONCLUSION: Mild soft tissue swelling posteriorly. No fracture or acute osseous abnormality is identified. Low Robert MD PE at Discharge GENERAL: WN, WD obese female, laying comfortably in bed in NAD. SKIN: Warm and dry. HEENT: Pupils equal and round. MMM. HEART: Tachycardic without m/r/g. LUNGS: Breathing comfortably on room air. Speaking in complete sentences. CTAB without wheezes or crackles. ABDOMEN: Soft, NT, ND. EXTREMITIES: No LE edema. Left wrist with bruising and mild swelling. NEURO: Awake and alert. Afocal. PSYCH: Appropriate mood and affect. Hospital Course 56-year-old female with asthma, anxiety, chronic back pain, and recent diagnosis of Elroy palsy admitted on 11/12 for asthma exacerbation. She was treated with Prednisone, nebulizers, and Levaquin. She has not required oxygen and passed home O2 walk test. She clinically improved and was discharged on 11/15 in stable condition. Pt Condition on Discharge: Stable Discharge Disposition: Disch w/ Home Health Serv Discharge Instructions DIET: Follow Instructions for: As Tolerated, No Restrictions Activities you can perform: Regular-No Restrictions Follow up Referrals: Physician - 1 Week with Jose Johnson MD R3 New Medications: Adjust Aluminum Cane/Roun (Adjust Aluminum Cane/Roun) 1 Mis Mis 1 EA .ROUTE DIRECTED #1 EA Gabapentin (Neurontin) 400 Mg Cap 400 MG PO BID #60 Ref 0 CAP Levofloxacin (Levaquin) 750 Mg Tab 750 MG PO DAILY #2 Ref 0 TAB Oxycodone-Acetaminophen (Oxycodone-Acetaminophen) 5-325 mg Tab 1 TAB PO Q6H PRN PAIN 5-10 #20 Ref 0 TAB Prednisone (Prednisone) 20 Mg Tab 40 MG PO DAILY #4 Ref 0 TAB Continued Medications: Albuterol 8.5 GM Inh (Proair Hfa 8.5 GM Inh) 90 Mcg/Act Aer 1 PUFF INH Q6HR 108 mcg/actuation PRN SHORTNESS OF BREATH #1 Ref 0 INHALER Albuterol Neb (Albuterol Neb) 2.5 Mg/3 Ml Neb 2.5 MG NEB Q4HR NEB While awake Breathing Treatment #120 Ref 0 NEBULE Budesonide-Formoterol Inh (Symbicort Inh) 160-4.5 Mcg/Act Aero 2 PUFF INH Q12HR #1 Ref 5 INHALER Cyclobenzaprine (Flexeril) 5 Mg Tab 5 MG PO TID Muscle Spasm #90 Ref 0 TAB Diazepam (Diazepam) 5 Mg Tab 5 MG PO TID Do not fill until 11/06/2016, thanks PRN ANXIETY #90 Ref 0 TAB Simvastatin (Simvastatin) 40 Mg Tab 40 MG PO DAILY Cholesterol Management #30 Ref 0 TAB Discontinued Medications: Gabapentin (Gabapentin) 300 Mg Cap 300 MG PO TID #90 Ref 3 CAP Hydrocodone-Acetaminophen (Lortab) 5-325 Mg Tab 1 TAB PO DAILY Do not fill until November 25, 2016. PRN BREAKTHROUGH PAIN #30 Ref 0 TAB Andreia Figueroa MD Nov 15, 2016 10:26
[2016-12-06] MEDS ORDERED: MONT10TA4 PO (10:01)
[2016-12-06] MEDS ORDERED: ALBUAER3 INH (10:01)
[2016-12-06] MEDS ORDERED: IPRASOL NEB (10:01)
[2016-12-06] MEDS ORDERED: BUDE.5I NEB (10:01)
[2016-12-06] MEDS ORDERED: OXYGENTANK NAS.CANULA (10:10)
[2016-12-06] MEDS ORDERED: NEBULIZER1 MI1 (11:55)
[2016-12-13] MEDS ORDERED: CYCL5TAB PO (12:20)
[2016-12-22] MEDS ORDERED: LEVA0.637 INH (23:55)
[2016-12-23] MEDS ORDERED: LORA-392 PO (11:32)
[2016-12-28] MEDS ORDERED: NEUR300C PO (20:06)
[2016-12-28] MEDS ORDERED: HYDR-3533 PO (20:06)
[2017-01-12] MEDS ORDERED: CYCL5TAB PO (13:12)
[2017-01-16] MEDS ORDERED: LORA-392 PO (00:50)
[2017-01-19] MEDS ORDERED: NEUR300C PO (20:19)
[2017-01-26] MEDS ORDERED: HYDR-3533 PO (10:17)
[2017-02-03] MEDS ORDERED: CYCL5TAB PO (13:39)
[2017-02-03] MEDS ORDERED: PRED50 PO (13:40)
[2017-02-20] MEDS ORDERED: LORA-392 PO (15:46)
[2017-02-21] MEDS ORDERED: PRED20 PO (16:09)
[2017-02-21] MEDS ORDERED: BENZ100 PO (16:09)
[2017-02-28] MEDS ORDERED: HYDR-3533 PO (13:39)
== END 2016-11-15 13:07 | disposition home or self-care (01) ==
LOC: NEPC 05:49 → NEDA 09:03 → INTOOBSV 09:03 → HOCB 13:18
PROVIDERS: ADMIT Family Medicine; ATTEND Family Medicine
DX: J45.901 Unspecified asthma with (acute) exacerbation (principal); J44.9 Chronic obstructive pulmonary disease, unspecified; G89.29 Other chronic pain; M54.5 Low back pain; R26.2 Difficulty in walking, not elsewhere classified; E78.5 Hyperlipidemia, unspecified; G62.9 Polyneuropathy, unspecified; G51.0 Bell's palsy; R06.02 Shortness of breath; R30.0 Dysuria; F41.9 Anxiety disorder, unspecified; R73.03 Prediabetes; Z85.3 Personal history of malignant neoplasm of breast; Z92.21 Personal history of antineoplastic chemotherapy; Z23 Encounter for immunization
CPT/HCPCS: 71020; 73090; 80048; 80053; 80061; 81001; 82550; 82552; 82948; 83036; 83880; 84484; 85025; 85610; 85730; 87070; 87205; 87804; 90471; 90686; 93005; 94620; 94640; 94664; 94799; 96374; 96375; 97162; 97530; 99284; G0378; J1650; J1815; J1956; J2270; J2930; J7512; J7613; G0008; Q2038

== ENCOUNTER 2016-11-16 10:02 | Inpatient (IN) | payer OTHER ==
[~2016-11-16] VITALS: Ht 152.4 cm; Wt 94.2 kg
[2016-11-16] VITALS (11 sets, daily range): BP systolic 108–151; BP diastolic 59–82; PULSE 107–123; RESP 16–28; TEMP 98.4–98.6; O2SAT 91–97
[~2016-11-16 10:02] MED LIST changes: -ACYC-101 PO; +ADJUST ALUMINUM1 MI1; -BENZ1CAP34 PO; -GABA300C5 PO; -HYDR-3533 PO; +LEVA750T PO; +NEUR400C PO; +OXYC1TAB63 PO
--- NOTE | 2016-11-16 10:21 | PD ---
HPI Chief Complaint: Respiratory Distress Time Seen by Provider: 10:21 Travel History International Travel<30 days: No Contact w/Intl Traveler<30days: No Traveled to known affect area: No History of Present Illness HPI 56-year-old female came to the emergency room brought by EMS with history of respiratory distress, COPD exacerbation. She was discharged yesterday from the hospital after being treated for pneumonia. Patient says after she went home she was doing okay but by 8 PM last night she started getting short of breath. She was using her albuterol every 4 hours but then ended up calling 911 this morning. She had a BiPAP on by EMS when she arrived. However he was upon arrival she did not seem to be struggling to breathe and the BiPAP was taken off. Her oxygen saturation was 81% on room air. She was put on 5 L of oxygen at which she was saturating 95%. She is not complaining of any chest pain. She seems very lethargic. Patient is taking diazepam at home along with pain medications. She is answering questions appropriately well. [facility] Past Medical History Narrative Medical List of her past medical, surgical, social and family history is reviewed from the nursing note. 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) Cardiovascular Problems: Yes High Cholesterol: Yes Chemotherapy: Yes (CA RIGHT BREAST) Chest Pain: No Congestive Heart Failure: No COPD: No Cerebrovascular Accident: No Diabetes: Yes Patient Takes Glucophage: No Diminished Hearing: No Endocrine: No Gastrointestinal Disorders: No GERD: Yes Genitourinary: No Hiatal Hernia: No Hypertension: No Immune Disorder: No Implanted Vascular Access Dvce: No Musculoskeletal: Yes (ATHRITIS) Neurologic: No Psychiatric: No Reproductive: No Respiratory: Yes (COPD) Immunizations Current: Yes Pneumonia: Yes Radiation Therapy: Yes Sleep Apnea: No Thyroid Disease: No Ulcer: No Influenza Vaccination: Yes ?: Not Menopausal: Yes Past Surgical History Abdominal Surgery: Yes (HERNIA REPAIR) Hysterectomy: No Other Surgery: Yes (right lumpectomy) Social History Alcohol Use: No Tobacco Use: No Substance Use: No Allergies-Medications (Allergen,Severity, Reaction): Coded Allergies: Sulfa (Verified Allergy, Severe, SOB, 11/16/16) rash all over body Vibramycin (Verified Allergy, Severe, ANAPHALACTIC, 11/16/16) Penicillin (Verified Allergy, Intermediate, Rash, 11/16/16) Tetracycline (Verified Allergy, Intermediate, Rash, 11/16/16) Comments List of allergies reviewed from the nursing note. Reported Meds & Prescriptions Reported Meds & Active Scripts Active Adjust Aluminum Cane/Roun (Device) 1 Mis Mis 1 Ea .ROUTE DIRECTED Prednisone 20 Mg Tab 40 Mg PO DAILY Oxycodone-Acetaminophen 5-325 mg Tab 1 Tab PO Q6H PRN Neurontin (Gabapentin) 400 Mg Cap 400 Mg PO BID Flexeril (Cyclobenzaprine HCl) 5 Mg Tab 5 Mg PO TID Diazepam 5 Mg Tab 5 Mg PO TID PRN Do not fill until 11/06/2016, thanks Proair Hfa 8.5 GM Inh (Albuterol Sulfate) 90 Mcg/Act Aer 1 Puff INH Q6HR PRN 108 mcg/actuation Albuterol Neb (Albuterol Sulfate) 2.5 Mg/3 Ml Neb 2.5 Mg NEB Q4HR NEB While awake Symbicort Inh (Budesonide/Formoterol Fumarate) 160-4.5 Mcg/Act Aero 2 Puff INH Q12HR Reported Simvastatin 40 Mg Tab 40 Mg PO DAILY Narrative Medication List of home medications reviewed from the nursing note. Review of Systems Except as stated in HPI: all other systems reviewed are Neg Physical Exam Narrative GENERAL: Lethargic, obese, no obvious distress, awake stop upon calling her name and answers questions with the slurred speech SKIN: Warm and dry. HEAD: Atraumatic. Normocephalic. EYES: Pupils equal and round. No scleral icterus. No injection or drainage. ENT: No nasal bleeding or discharge. Mucous membranes pink and moist. NECK: Trachea midline. No JVD. CARDIOVASCULAR: Regular rate and rhythm. No murmur appreciated. RESPIRATORY: No accessory muscle use. Clear to auscultation. Breath sounds equal bilaterally. GASTROINTESTINAL: Abdomen soft, non-tender, nondistended. Hepatic and splenic margins not palpable. MUSCULOSKELETAL: No obvious deformities. No clubbing. No cyanosis. No edema. NEUROLOGICAL: GCS of 14, lethargic. No obvious cranial nerve deficits. Motor grossly within normal limits. Slurred speech. PSYCHIATRIC: Appropriate mood and affect; insight and judgment normal. Data Data Last Documented VS Vital Signs Date Time Temp Pulse Resp B/P Pulse Ox O2 Delivery O2 Flow Rate FiO2 11/16/16 11:51 112 16 108/59 97 Nasal Cannula 2 11/16/16 10:13 98.6 Orders Complete Blood Count With Diff (11/16/16 10:29) Basic Metabolic Panel (Bmp) (11/16/16 10:29) B-Type Natriuretic Peptide (11/16/16 10:29) Magnesium (Mg) (11/16/16 10:29) Troponin I (11/16/16 10:29) Iv Access Insert/Monitor (11/16/16 10:29) Ecg Monitoring (11/16/16 10:29) Oximetry (11/16/16 10:29) Oxygen Administration (11/16/16 10:29) Chest, Single Ap (11/16/16 10:29) Sodium Chloride 0.9% Flush (Ns Flush) (11/16/16 10:30) Albuterol-Ipratropium Neb (Duoneb Neb) (11/16/16 10:30) Aztreonam Inj (Azactam Inj) (11/16/16 12:45) Vancomycin Inj (Vancomycin Inj) (11/16/16 12:45) Blood Culture (11/16/16 12:37) Lactic Acid (11/16/16 12:37) Admit Order (Ed Use Only) (11/16/16 12:49) Labs Laboratory Tests Test 11/16/16 11/16/16 10:35 12:45 White Blood Count 23.8 TH/MM3 Red Blood Count 4.11 MIL/MM3 Hemoglobin 11.4 GM/DL Hematocrit 35.5 % Mean Corpuscular Volume 86.2 FL Mean Corpuscular Hemoglobin 27.8 PG Mean Corpuscular Hemoglobin 32.2 % Concent Red Cell Distribution Width 18.9 % Platelet Count 281 TH/MM3 Mean Platelet Volume 7.5 FL Neutrophils (%) (Auto) 81.7 % Lymphocytes (%) (Auto) 12.8 % Monocytes (%) (Auto) 5.1 % Eosinophils (%) (Auto) 0.2 % Basophils (%) (Auto) 0.2 % Neutrophils # (Auto) 19.4 TH/MM3 Lymphocytes # (Auto) 3.0 TH/MM3 Monocytes # (Auto) 1.2 TH/MM3 Eosinophils # (Auto) 0.0 TH/MM3 Basophils # (Auto) 0.0 TH/MM3 CBC Comment AUTO DIFF Differential Total Cells 100 Counted Neutrophils % (Manual) 75 % Band Neutrophils % 11 % Lymphocytes % 12 % Monocytes % 2 % Neutrophils # (Manual) 20.5 TH/MM3 Differential Comment FINAL DIFF MANUAL Platelet Estimate NORMAL Platelet Morphology Comment NORMAL Sodium Level 139 MEQ/L Potassium Level 4.7 MEQ/L Chloride Level 100 MEQ/L Carbon Dioxide Level 30.4 MEQ/L Anion Gap 9 MEQ/L Blood Urea Nitrogen 39 MG/DL Creatinine 1.66 MG/DL Estimat Glomerular Filtration 32 ML/MIN Rate Random Glucose 112 MG/DL Calcium Level 8.3 MG/DL Magnesium Level 2.0 MG/DL Troponin I LESS THAN 0.02 NG/ML B-Type Natriuretic Peptide 48 PG/ML Lactic Acid Level 1.1 mmol/L MDM Medical Decision Making Medical Screen Exam Complete: Yes Emergency Medical Condition: Yes Medical Record Reviewed: Yes Differential Diagnosis COPD exacerbation, pneumonia, congestive heart failure Narrative Course 1 PM blood test results are back. Patient has significant leukocytosis with bandemia. I've ordered antibiotic with broad coverage. It would be a hospital- acquired pneumonia at this point that she was recently discharged. I admitted her to the family law mediator service and she was admitted to them her last admission. Her troponin and BNP were within normal limit. Patient had refused to do an ABG. Critical Care Narrative Aggregate critical care time was 30 minutes. Time to perform other separately billable procedures was not included in the critical care time. My time did not include minutes spent treating any other patients simultaneously or on activities that did not directly contribute to the patient's treatment. The services I provided to this patient were to treat and/or prevent clinically significant deterioration that could result in: Respiratory distress, pneumonia, sepsis I provided critical care services requiring my management, as noted below: Chart data review, documentation time, medication orders and management, vital sign assessments/reviewing monitor data, ordering and reviewing lab tests, ordering and interpreting/reviewing x-rays and diagnostic studies, care of the patient and discussion of the patient with the admitting physicians. Procedures EKG Prior to Arrival: No Diagnosis Primary Impression: Sepsis Qualified Code: A41.9 - Sepsis, due to unspecified organism Additional Impressions: Respiratory distress Pneumonia Qualified Code: J18.9 - Pneumonia of both lower lobes due to infectious organism Hospital-acquired pneumonia Leukocytosis Qualified Code: D72.828 - Other elevated white blood cell (WBC) count Admitting Information Admitting Physician Requests: Admit Scripts Rivaroxaban (Xarelto)20 Mg Tab20 Mg PO DAILY #30 TAB Ref 5 Prov:Andreia Figueroa MD 11/18/16 Rivaroxaban (Xarelto)15 Mg Tab15 Mg PO Q12HR #42 TAB Ref 0 Take 1 tab by mouth twice a day for 21 days Prov:Andreia Figueroa MD 11/18/16 Ankur Pleitez MD Nov 16, 2016 10:21
[2016-11-16] MEDS ORDERED: SODIUM CHLORIDE 0.9% FLUSH 5 ML FLUSH IVF PRN (10:30)
[2016-11-16] MEDS: RESP: ALBUTEROL 2.5 MG/IPRATROPIUM 0.5 MG NEB (SCH) INH ×2 (10:45→10:47)
[2016-11-16 10:48] LABS: AUTOMATED NEUTROPHIL # 19.4 TH/MM3 (1.8-7.7); BASOPHIL % 0.2 % (0.0-2.0); EOSINOPHIL % 0.2 % (0.0-4.0); HEMATOCRIT 35.5 % (35.0-46.0); LYMPH % 12.8 % (9.0-44.0); MEAN CELL VOLUME 86.2 FL (80.0-100.0); MEAN CORPUSCULAR HEMOGLOBIN 27.8 PG (27.0-34.0); MEAN CORPUSCULAR HGB CONC 32.2 % (32.0-36.0); MONO % 5.1 % (0.0-8.0); NEUT % 81.7 % (16.0-70.0); PLATELET COUNT 281 TH/MM3 (150-450); RED BLOOD COUNT 4.11 MIL/MM3 (4.00-5.30); RED CELL DISTRIBUTION WIDTH 18.9 % (11.6-17.2); WHITE BLOOD COUNT 23.8 TH/MM3 (4.0-11.0)
[2016-11-16 10:52] LABS: HEMO FLAGS AUTO DIFF
--- NOTE | 2016-11-16 11:08 | RADRPT ---
EXAM DATE/TIME: 11/16/2016 10:33 [facility] COMPARISON: CHEST PA & LAT, November 12, 2016, 7:25. INDICATIONS : Short of breath, difficulty breathing. MEDICAL HISTORY : Cardiovascular disease. Hypercholesterolemia. Asthma SURGICAL HISTORY : Inguinal hernia repair. ENCOUNTER: Initial ACUITY: 1 day PAIN SCORE: 0/10 LOCATION: Bilateral chest FINDINGS: There is mild bibasilar consolidation, left worse than right and both sides are slightly worse in the interim. No pleural effusion seen. No pneumothorax. Heart size stable, upper limits of normal. CONCLUSION: Mild bibasilar consolidation. Low Almazan MD on November 16, 2016 at 11:06 Board Certified Radiologist. This report was verified electronically.
[2016-11-16 11:13] LABS: ANION GAP 9 MEQ/L (5-15); BICARBONATE 30.4 MEQ/L (21.0-32.0); BLOOD UREA NITROGEN 39 MG/DL (7-18); CHLORIDE 100 MEQ/L (98-107); GLOMERULAR FILTRATION RATE 32 ML/MIN (>89); POTASSIUM 4.7 MEQ/L (3.5-5.1); SODIUM (NA) 139 MEQ/L (136-145)
[2016-11-16 11:23] LABS: BANDS 11 % (0-6); NEUTROPHIL # MANUAL DIFF 20.5 TH/MM3 (1.8-7.7); PLATELET ESTIMATE SMEAR NORMAL (NORMAL); PLATELET MORPHOLOGY NORMAL (NORMAL); POLYS (SEG NEUTROPHILS) 75 % (16-70); SCAN/DIFF FINAL DIFF MANUAL; WBC DIFF SAMPLE 100
[2016-11-16] MEDS ORDERED: VANCOMYCIN INJ 1,000 MG in SODIUM CHLOR 0.9% 250 ML INJ 250 ML IV SCH (12:45)
[2016-11-16] MEDS ORDERED: AZTREONAM INJ 1,000 MG in SODIUM CHLORIDE 0.9% INJ 100 ML IV ONE (12:45)
[2016-11-16] MEDS ORDERED: SODIUM CHLORIDE 0.9% FLUSH 5 ML FLUSH IV PRN (13:00)
--- NOTE | 2016-11-16 13:05 | HHI.HP ---
[facility] Service Family Medicine Primary Care Physician Jose Johnson MD Admission Diagnosis pneumonia, respiratory distress, altered mental status Diagnoses: International Travel<30 Days: No Contact w/Intl Traveler<30days: No Known Affected Area: No History of Present Illness 56 year old female with asthma, chronic back pain, and anxiety presented to the ER via [facility] for shortness of breath. The patient was discharged from the hospital yesterday afternoon after being admitted on 11/12 for asthma exacerbation. The patient reports initially at home she was feeling fine but later yesterday evening she had sudden onset shortness of breath despite several albuterol treatments; she became very anxious and called 911. She also endorses that she had one episode of hemoptysis at home as well. She arrived to the ER on BiPAP which was quickly taken off since she was not struggling to breathe. She endorses chest pain when she takes a deep breath in which is new for her. She states her symptoms are different than her typical asthma symptoms and she feels much worse than when she was just in the hospital. She expresses that she feels extremely anxious and wants something immediately for anxiety. (Andreia Figueroa MD) Review of Systems Constitutional: DENIES: Fever, Chills Eyes: DENIES: Blurred vision, Diplopia Respiratory: COMPLAINS OF: Cough, Wheezing, Hemoptysis, Shortness of breath Cardiovascular: COMPLAINS OF: Chest pain, Dyspnea on Exertion, DENIES: Palpitations, Syncope, Lower Extremity Edema Gastrointestinal: DENIES: Abdominal pain, Constipation, Diarrhea, Nausea, Vomiting Genitourinary: DENIES: Dysuria Musculoskeletal: COMPLAINS OF: Back pain, DENIES: Joint pain Integumentary: DENIES: Rash Hematologic/lymphatic: COMPLAINS OF: Bruising (L wrist) Neurologic: DENIES: Headache Psychiatric: COMPLAINS OF: Anxiety, DENIES: Confusion (Andreia Figueroa MD) Past Family Social History Past Medical History Right breast cancer diagnosed in 2005 in [place] -- patient underwent lumpectomy with removal of axillary lymph nodes. Patient was followed by Dr. Smith of [facility] Chronic Low Back Pain. Asthma Hyperlipidemia Baker Palsy, recently diagnosed Left foot neuropathy, unknown cause Past Surgical History Abdominal Hernia repair x 3; Umbilical hernia repair Ovarian cyst removal Right breast lumpectomy with removal of axillary lymph nodes; Appendectomy; Throat operation (polyp removal) Reported Medications Adjust Aluminum Cane/Roun (Device) 1 Mis Mis 1 Ea .ROUTE DIRECTED Prednisone 20 Mg Tab 40 Mg PO DAILY Oxycodone-Acetaminophen 5-325 mg Tab 1 Tab PO Q6H PRN Neurontin (Gabapentin) 400 Mg Cap 400 Mg PO BID Flexeril (Cyclobenzaprine HCl) 5 Mg Tab 5 Mg PO TID Diazepam 5 Mg Tab 5 Mg PO TID PRN Proair Hfa 8.5 GM Inh (Albuterol Sulfate) 90 Mcg/Act Aer 1 Puff INH Q6HR PRN Albuterol Neb (Albuterol Sulfate) 2.5 Mg/3 Ml Neb 2.5 Mg NEB Q4HR NEB Symbicort Inh (Budesonide/Formoterol Fumarate) 160-4.5 Mcg/Act Aero 2 Puff INH Q12HR Simvastatin 40 Mg Tab 40 Mg PO DAILY (Andreia Figueroa MD) Allergies: Coded Allergies: Sulfa (Verified Allergy, Severe, SOB, 11/16/16) rash all over body Vibramycin (Verified Allergy, Severe, ANAPHALACTIC, 11/16/16) Penicillin (Verified Allergy, Intermediate, Rash, 11/16/16) Tetracycline (Verified Allergy, Intermediate, Rash, 11/16/16) Active Ordered Medications Albuterol/ Ipratropium 1 ampule 1 ampule Q15M INH Last administered on 11/16/16t 10:45; Admin Dose 1 AMPULE; Start 11/16/16 at 10:30; Stop 11/16/16 at 10:46; Status DC Aztreonam/Sodium Chloride (Azactam Inj/NS Inj) 100 ml @ 200 mls/hr ONCE ONCE IV Last administered on 11/16/16 12:58; Admin Dose 200 MLS/HR; Start 11/16/16 at 12:45; Stop 11/16/16 at 13:14; Status DC Aztreonam/Sodium Chloride (Azactam Inj/NS Inj) 100 ml @ 200 mls/hr Q8H IV; Start 11/16/16 at 21:00 Budesonide/ Formoterol Fumarate (Symbicort 160-4.5 Inh) 2 puff Q12HR INH; Start 11/16/16 at 21:00 Cyclobenzaprine HCl (Flexeril) 5 mg TID PO; Start 11/16/16 at 18:00 Diazepam (Valium) 5 mg TID PRN PO; Start 11/16/16 at 14:00 Enoxaparin Sodium (Lovenox Inj) 40 mg Q24H SQ Last administered on 11/16/16 14: 04; Admin Dose 40 MG; Start 11/16/16 at 14:00 Gabapentin (Neurontin) 400 mg BID PO; Start 11/16/16 at 21:00 Guaifenesin 600 mg 600 mg BID PO; Start 11/16/16 at 21:00 IV Flush (NS Flush) 2 ml BID IV; Start 11/16/16 at 21:00 IV Flush (NS Flush) 2 ml UNSCH PRN IV; Start 11/16/16 at 13:00 IV Flush (NS Flush) 2 ml UNSCH PRN IVF; Start 11/16/16 at 10:30; Stop 11/16/16 at 13:21; Status DC Lorazepam (Ativan Inj) 1 mg ONCE ONCE IV Last administered on 11/16/16 14:05; Admin Dose 1 MG; Start 11/16/16 at 13:30; Stop 11/16/16 at 13:31; Status DC Methylprednisolone Sodium Succinate (SoluMEDROL INJ) 60 mg ONCE ONCE IV PUSH Last administered on 11/16/16 13:35; Admin Dose 60 MG; Start 11/16/16 at 13:30; Stop 11/16/16 at 13:31; Status DC Miscellaneous (Pill Splitter) 1 ea UNSCH PRN OTHER; Start 11/16/16 at 14:00 Oxycodone/ Acetaminophen (Percocet 5-325 Mg) 1 tab Q6H PRN PO; Start 11/16/16 at 14:00 Pravastatin Sodium 80 mg 80 mg DAILY PO; Start 11/17/16 at 09:00 Prednisone (Deltasone) 40 mg BID PO; Start 11/16/16 at 21:00 Sodium Chloride (NS 1000 ml Inj) 1,000 ml @ 100 mls/hr Q10H IV; Start 11/16/16 at 14:00 Vancomycin HCl 1000 mg/Sodium Chloride 250 ml @ 250 mls/hr Q24H IV; Start at 12:00 Family History Reported Medications Reported Meds & Active Scripts Active Flexeril (Cyclobenzaprine HCl) 5 Mg Tab 5 Mg PO TID Lortab (Hydrocodone-Acetaminophen) 5-325 Mg Tab 1 Tab PO DAILY PRN Do not fill until November 25, 2016. Gabapentin 300 Mg Cap 300 Mg PO TID Diazepam 5 Mg Tab 5 Mg PO TID PRN Do not fill until 11/06/2016, thanks Proair Hfa 8.5 GM Inh (Albuterol Sulfate) 90 Mcg/Act Aer 1 Puff INH Q6HR PRN 108 mcg/actuation Albuterol Neb (Albuterol Sulfate) 2.5 Mg/3 Ml Neb 2.5 Mg NEB Q4HR NEB While awake Symbicort Inh (Budesonide/Formoterol Fumarate) 160-4.5 Mcg/Act Aero 2 Puff INH Q12HR Reported Simvastatin 40 Mg Tab 40 Mg PO DAILY Allergies: Mother - at age 95 from natural causes; H/O Diabetes Father - at age 60 from [facility] Social History Works through [employer]. Lives in a home; sister and her live with her Denies tobacco, alcohol, and illicit drug use (Andreia Figueroa MD) Physical Exam Vital Signs Vital Signs Date Time Temp Pulse Resp B/P Pulse Ox O2 Delivery O2 Flow Rate FiO2 11/16/16 11:51 112 16 108/59 97 Nasal Cannula 2 11/16/16 10:55 98 Nasal Cannula 2 11/16/16 10:16 123 24 115/72 96 Nasal Cannula 4 11/16/16 10:15 95 Nasal Cannula 5.00 11/16/16 10:13 98.6 118 28 91 Physical Exam GENERAL: Obese female laying in bed SKIN: Warm and dry without rash. HEENT: Atraumatic. Normocephalic. No temporal or scalp tenderness. Pupils dilated bilaterally, equal and reactive to light. Extraocular motions intact. No scleral icterus. No injection or drainage. Nose without bleeding or purulent drainage. Nasal cannula in place. Dry mucous membranes. Throat without erythema , tonsillar hypertrophy or exudate. Uvula midline. Airway patent. NECK: Trachea midline. No JVD or lymphadenopathy. Supple, nontender, no meningeal signs. CARDIOVASCULAR: Tachycardic with a regular rhythm. No murmurs, rubs, or gallops appreciated. 2+ pedal pulses. RESPIRATORY: Transmitted upper airway sounds but otherwise clear with an occasional end-expiratory wheeze at the bases. GASTROINTESTINAL: Abdomen soft, nontender, nondistended. No guarding or rebound. MUSCULOSKELETAL: Extremities without clubbing, cyanosis, or edema. No joint tenderness, effusion, or edema noted. No calf tenderness. Negative Homans sign bilaterally. NEUROLOGICAL: Awake and alert. Laboratory Laboratory Tests Test 11/16/16 10:35 White Blood Count 23.8 Red Blood Count 4.11 Hemoglobin 11.4 Hematocrit 35.5 Mean Corpuscular Volume 86.2 Mean Corpuscular Hemoglobin 27.8 Mean Corpuscular Hemoglobin 32.2 Concent Red Cell Distribution Width 18.9 Platelet Count 281 Mean Platelet Volume 7.5 Neutrophils (%) (Auto) 81.7 Lymphocytes (%) (Auto) 12.8 Monocytes (%) (Auto) 5.1 Eosinophils (%) (Auto) 0.2 Basophils (%) (Auto) 0.2 Neutrophils # (Auto) 19.4 Lymphocytes # (Auto) 3.0 Monocytes # (Auto) 1.2 Eosinophils # (Auto) 0.0 Basophils # (Auto) 0.0 CBC Comment AUTO DIFF Differential Total Cells 100 Counted Neutrophils % (Manual) 75 Band Neutrophils % 11 Lymphocytes % 12 Monocytes % 2 Neutrophils # (Manual) 20.5 Differential Comment FINAL DIFF MANUAL Platelet Estimate NORMAL Platelet Morphology Comment NORMAL Sodium Level 139 Potassium Level 4.7 Chloride Level 100 Carbon Dioxide Level 30.4 Anion Gap 9 Blood Urea Nitrogen 39 Creatinine 1.66 Estimat Glomerular Filtration 32 Rate Random Glucose 112 Calcium Level 8.3 Magnesium Level 2.0 Troponin I LESS THAN 0.02 B-Type Natriuretic Peptide 48 Date/Time Procedure Status Source Growth 11/16/16 12:45 Aerobic Blood Culture Received Blood Peripheral Pending 11/16/16 12:45 Anaerobic Blood Culture Received Blood Peripheral Pending (Andreia Figueroa MD) Result Diagram: 11/16/16 1035 11/16/16 1035 Imaging Chest X-Ray 11/16/16 1029 Signed Impressions: Service Date/Time: Wednesday, November 16, 2016 10:33 - CONCLUSION: Mild bibasilar consolidation. Low Almazan MD Lung Scan- Nuclear Medicine 11/16/16 0000 Signed Impressions: Service Date/Time: Wednesday, November 16, 2016 14:10 - CONCLUSION: Intermediate to high probability for PE. Low Almazan MD (Andreia Figueroa MD) Septic Shock Reassessment Heart: Other (Tachycardic) Lungs: Clear Skin: Warm Peripheral Pulses: Bounding Right Radial Bounding Left Radial Bounding Right Dorsalis Pedis Bounding Left Dorsalis Pedis Bounding Right Posterior Tibial Bounding Left Posterior Tibial Capillary Refill: <2 seconds (Andreia Figueroa MD) Assessment and Plan Assessment and Plan 56 year old female with asthma, anxiety, and chronic back pain is admitted for acute onset shortness of breath and hypoxia. She was found to have [id number] probability V/Q scan and will be admitted to the unit overnight for close monitoring and anticoagulation on a heparin drip. Initially on arrival, given leukocytosis, tachycardia, and chest x-ray finding of mild bibasilar consolidations, she was started on IV antibiotics to cover for hospital acquired pneumonia since she was hospitalized from 11/12-11/15. Code Status FULL Discussed Condition With Dr. Magallon (Andreia Figueroa MD) Attending Attestation Patient seen and examined. Case reviewed and discussed with the resident team. Agree with plan of care as discussed with me and documented in the resident note. pt seen in ED and very frightened about her acute respiratory distress (Kirti Magallon MD) Problem List: (1) Pulmonary emboli Status: Acute Plan: Patient presenting with acute onset shortness of breath, anxiety, and hypoxia. Arrived to the ER on BiPAP and once removed O2 sat went down to 81%, back up to 95% on 5L and now stable at 93-97% on 2L. Tachycardic is chronic and review of EMR/outpatient visits shows average heart rate in low 100s since at least 2013 but never quite as high as 123 during this ER visit. V/Q scan ordered in light of patient's JEY showing [id number] probability for PE. Patient is hemodynamically stable at this time but will be closely monitored in the unit overnight. - No symptoms of DVT on exam and patient was ambulating regularly and given prophylactic anticoagulation during recent hospitalization. History of breast cancer but no known current malignancy. Well's score is 2.5 (hemoptysis + tachycardia) - Initiate heparin drip with bolus. Monitor CBC and coags per protocol - Supplemental O2 - Check EKG - Will discuss with case management tomorrow about possible Xarelto coverage otherwise will initiate Coumadin - Morphine for pleuritic chest pain 2 mg IV Q3H (hold for sedation) (2) Sepsis Status: Acute Plan: Patient with white count up to 23.8, tachycardia, hypoxia, and possible source of infection with CXR showing mild bibasilar consolidations. Lactic acid WNL. Though it can all be attributed to the patient's PE, the CBC also shows a left shift with bandemia, and given that she was recently hospitalized, we will treat for hospital-acquired pneumonia with IV Aztreonam (since PCN allergic) and IV vancomycin. - Currently afebrile and hemodynamically stable but monitor closely - Blood cultures pending - Check U/A (3) JEY (acute kidney injury) Status: Acute Plan: Creatinine last admission ~1.00 and today it is up to 1.66 with BUN elevated to 39. Etiology possible dehydration vs. systemic inflammatory response. vs. ATN vs. medications. Electrolytes WNL. - Monitor closely - NS at 100 ml/hr - Avoid nephrotoxic agents (4) Asthma Status: Chronic Plan: Patient recently admitted from 11/12-11/15 with exacerbation; was discharged on Levaquin and Prednisone. - DuoNeb Q4H - Albuterol neb Q2H PRN - SoluMedrol 60 mg IV x 1 then 40 mg IV daily starting tomorrow - Continue home Symbicort - Supplemental O2 PRN (5) Anxiety Status: Chronic Plan: Patient extremely anxious which is likely a combination of her baseline anxiety and the PE. Ativan 1 mg IV Q4H PRN. Hold home Valium to avoid oversedation. (6) Nutrition, metabolism, and development symptoms Status: Acute Plan: - Fluids: NS at 100 ml/hr - Electrolytes: WNL. Monitor and replete as needed - Nutrition: Regular diet - GI prophylaxis: Protonix 40 mg PO daily Chronic conditions: - Neuropathy: Continue gabapentin - HLD: Continue statin dw Dr. Magallon ([facility]) Physician Certification 2 Midnight Certification Type: Admission for Inpatient Services Order for Inpatient Services The services are ordered in accordance with Medicare regulations or non- Medicare payer requirements, as applicable. In the case of services not specified as inpatient-only, they are appropriately provided as inpatient services in accordance with the 2-midnight benchmark. Estimated LOS (days): 5 5 days is the estimated time the patient will need to remain in the hospital, assuming treatment plan goals are met and no additional complications. Post-Hospital Plan: Not yet determined (Andreia Figueroa MD) Problem Qualifiers (1) Pulmonary emboli: Qualified Code: I26.99 - Other acute pulmonary embolism without acute cor pulmonale (2) Sepsis: Qualified Code: A41.9 - Sepsis, due to unspecified organism (3) Asthma: Qualified Code: J45.20 - Mild intermittent asthma without complication Andreia Figueroa MD Nov 16, 2016 13:05 Kirti Magallon MD Nov 17, 2016 15:33
[2016-11-16] MEDS ORDERED: LORazepam 2 MG/ML VIAL IV ONE (13:30)
[2016-11-16] MEDS ORDERED: methylPREDNISolone SOD SUCC 125 MG/2 ML VIAL IV PUSH ONE (13:30)
[2016-11-16 13:49] LABS: BLOOD GAS VENOUS BASE EXCESS 1.2 mmol/L (-2-2); BLOOD GAS VENOUS HCO3 27 mmol/L (22-26); BLOOD GAS VENOUS O2 CONTENT 8.6 Vol % (9.0-17.0); BLOOD GAS VENOUS O2 HGB SAT 61 % (70-76); BLOOD GAS VENOUS PCO2 51 mmHg (44-48); BLOOD GAS VENOUS PO2 34 mmHg (35-40); BLOOD GAS VENOUS pH 7.33 (7.360-7.400); CRITICAL VALUE NO; OXYGEN DEVICE NASAL CANNULA; TEMP CORR TO 98.6
[2016-11-16 13:50] LABS: DRAW SITE SWAN GANZ LINE; LITER FLOW 2 L/M; STAT YES
[2016-11-16 13:51] LABS: AMPHETAMINE, URINE NEG (NEG); BARBITURATES, URINE NEG (NEG); COCAINE, URINE NEG (NEG)
[2016-11-16] MEDS ORDERED: DIAZEPAM 5 MG TAB PO PRN (14:00)
[2016-11-16] MEDS ORDERED: ENOXAPARIN SODIUM 40 MG/0.4 ML SYRINGE SQ SCH (14:00)
[2016-11-16] MEDS ORDERED: PILL SPLITTER OTHER PRN (14:00)
[2016-11-16] MEDS ORDERED: oxyCODONE/ACETAMINOPHEN 5 MG/325 MG TAB PO PRN (14:00)
--- NOTE | 2016-11-16 15:21 | RADRPT ---
EXAM DATE/TIME: 11/16/2016 14:10 [place] COMPARISON: CT PULMONARY ANGIOGRAM, June 03, 2016, 13:33. CT THORAX W CONTRAST, April 30, 2014, 18:29. INDICATIONS : Respiratory distress. DOSE: 8.7 mCi Tc99m MAA IV 0.9 mCi Tc99m DTPA aerosol MEDICAL HISTORY : Hypercholesterolemia. Chronic obstructive pulmonary disease. Diabetes mellitus type 2. Right breast c ancer. SURGICAL HISTORY : Inguinal hernia repair. ENCOUNTER: Initial ACUITY: 1 day PAIN SCALE: 0/10 LOCATION: chest TECHNIQUE: Following five minutes of tidal breathing of DTPA aerosol, planar images of the lungs were performed in eight projections. The patient was then injected with MAA, and eight-view perfusion scan was perf ormed. FINDINGS: Ventilation is heterogeneous. Numerous small to moderate peripheral foci of decreased perfusion are scattered throughout both lungs concerning for pulmonary embolus in the proper clinical setting. CONCLUSION: Intermediate to high probability for PE. Low Almazan MD on November 16, 2016 at 15:13 Board Certified Radiologist. This report was verified electronically.
[2016-11-16] MEDS ORDERED: HEPARIN SODIUM - IV 10,000 UNITS/10 ML VIAL IV ONE (16:00)
[2016-11-16] MEDS ORDERED: KETOROLAC TROMETHAMINE 30 MG/ML (IVP) VIAL IV PUSH PRN ×2 (16:00→16:16)
[2016-11-16] MEDS: HEPARIN-D5W INJ 250 ML IV SCH (16:34)
[2016-11-16] MEDS: RESP: ALBUTEROL 2.5 MG/IPRATROPIUM 0.5 MG NEB (SCH) NEB ×3 (16:35→23:13)
[2016-11-16] MEDS: SODIUM CHLOR 0.9% 1000 ML INJ 1,000 ML IV SCH (17:27)
[2016-11-16] MEDS ORDERED: CYCLOBENZAPRINE HCL 10 MG TAB PO SCH (18:00)
[2016-11-16] MEDS: PANTOPRAZOLE SOD 40 MG DELAYED RELEASE TAB PO SCH (18:00)
[2016-11-16] MEDS: LORazepam 2 MG/ML VIAL IV PUSH PRN ×2 (18:04→21:49)
[2016-11-16 18:18] LABS: BACTERIA, URINE RARE /hpf; BLOOD, URINE NEG (NEG); COMMENT (UR) CULT NOT INDICATED; CULTURE IF INDICATED CULT NOT INDICATED; GLUCOSE,URINE NEG (NEG); HYALINE CAST, URINE 2 /lpf (RARE); KETONE, URINE NEG (NEG); MUCUS URINE FEW /lpf (OCC); NITRITE,URINE NEG (NEG); SQUAMOUS EPITHELIAL CELL URINE 2 /hpf (0-5); URINE COLOR YELLOW (YELLW/STRAW)
[2016-11-16] MEDS: MORPHINE SULFATE 4 MG/ML INJ IV PUSH PRN ×2 (20:10→23:31)
[2016-11-16] MEDS: BUDESONIDE-FORMOTEROL 160/4.5 MCG INHALER INH SCH (21:00)
[2016-11-16] MEDS ORDERED: predniSONE 20 MG TAB PO SCH (21:00)
[2016-11-16 21:51] LABS: PROTHROMBIN TIME - PATIENT 10.8 SEC (9.8-11.6)
[2016-11-16 21:52] LABS: APTT (PATIENT) 80.9 SEC (24.3-30.1)
[2016-11-16] MEDS: GABAPENTIN 400 MG CAP PO SCH (22:00)
[2016-11-16] MEDS: guaiFENesin E.R. 600 MG TAB PO SCH (22:00)
[2016-11-16] MEDS: CHLORHEXIDINE GLUCONATE 2 % 1 PACK (2 CLOTHS)(taper/protocol) TOP SCH (22:00)
[2016-11-16] MEDS: SODIUM CHLORIDE 0.9% FLUSH 5 ML FLUSH IV SCH (22:00)
[2016-11-16] MEDS ORDERED: HEPARIN SODIUM - IV 10,000 UNITS/10 ML VIAL IV PRN ×2 (22:00)
[2016-11-16] MEDS ORDERED: CHLORHEXIDINE GLUCONATE 2 % 1 PACK (2 CLOTHS)(extra cloths) TOP PRN (22:00)
[2016-11-16] MEDS: TEMAZEPAM 15 MG CAP PO PRN (22:35)
[2016-11-16] MEDS: AZTREONAM INJ 2,000 MG in SODIUM CHLORIDE 0.9% INJ 100 ML IV SCH (22:35)
[2016-11-17] VITALS (10 sets, daily range): BP systolic 134–153; BP diastolic 68–92; PULSE 78–114; RESP 20–23; TEMP 98–98.8; O2SAT 22–97
[2016-11-17] MEDS: SODIUM CHLOR 0.9% 1000 ML INJ 1,000 ML IV SCH ×2 (02:57→10:00)
[2016-11-17] MEDS: RESP: ALBUTEROL 2.5 MG/IPRATROPIUM 0.5 MG NEB (SCH) NEB ×5 (03:31→19:05)
[2016-11-17] MEDS: AZTREONAM INJ 2,000 MG in SODIUM CHLORIDE 0.9% INJ 100 ML IV SCH ×3 (04:06→21:00)
[2016-11-17 04:21] LABS: AUTOMATED NEUTROPHIL # 13.5 TH/MM3 (1.8-7.7); BASOPHIL % 0.3 % (0.0-2.0); EOSINOPHIL % 0.1 % (0.0-4.0); HEMATOCRIT 31.4 % (35.0-46.0); HEMO FLAGS DIFF FINAL; MEAN CORPUSCULAR HEMOGLOBIN 27.4 PG (27.0-34.0); MEAN CORPUSCULAR HGB CONC 31.5 % (32.0-36.0); MONO % 2.6 % (0.0-8.0); PLATELET COUNT 229 TH/MM3 (150-450); RED BLOOD COUNT 3.61 MIL/MM3 (4.00-5.30)
[2016-11-17 04:31] LABS: APTT (PATIENT) 34.8 SEC (24.3-30.1)
[2016-11-17 04:46] LABS: BICARBONATE 28.5 MEQ/L (21.0-32.0); POTASSIUM 4.2 MEQ/L (3.5-5.1)
[2016-11-17] MEDS: MORPHINE SULFATE 4 MG/ML INJ IV PUSH PRN ×6 (05:19→22:30)
[2016-11-17] MEDS: LORazepam 2 MG/ML VIAL IV PUSH PRN ×4 (06:06→20:00)
--- NOTE | 2016-11-17 08:50 | HHI.HP ---
[facility] Service Family Medicine Primary Care Physician Jose Johnson MD Admission Diagnosis pneumonia, respiratory distress, altered mental status Diagnoses: (1) Pulmonary emboli Diagnosis: Principal (2) Sepsis Diagnosis: Principal (3) JEY (acute kidney injury) Diagnosis: Principal (4) Asthma Diagnosis: Principal (5) Anxiety Diagnosis: Principal (6) Nutrition, metabolism, and development symptoms Diagnosis: Principal International Travel<30 Days: No Contact w/Intl Traveler<30days: No Known Affected Area: No History of Present Illness Ms Caldwell is a 56 year old female with asthma, chronic back pain, and anxiety who presented to the ER via [facility] for shortness of breath. The patient was discharged from the hospital yesterday afternoon after being admitted on 11/12 for asthma exacerbation. The patient reports initially at home she was feeling fine and walking up and down stairs and not requiring oxygen but later in the evening she had sudden onset shortness of breath despite several albuterol treatments; she became very anxious and called 911. She also endorses that she had one episode of hemoptysis at home as well. She arrived to the ER on BiPAP which was quickly taken off since she was not struggling to breathe. She endorsed chest pain when she took a deep breath in which was new for her. She states her symptoms are different than her typical asthma symptoms and she feels much worse than when she was just in the hospital. She expresses that she feels extremely anxious and wants something immediately for anxiety. She agreed to VQ scan after some ativan which was moderate to high probability of PE. Based on her acute clinical deterioration and hypoxia on arrival to the ED as well as a stable CXR, BNP and troponins, PE explains all her sxs. She also had hemoptysis which she has not experienced in the past. She had heparin overnight iv and is doing very well this am. She wants to walk around and go to another room as her breathing is much better than on admission. Korina took off her oxygen and was looking for a "real" bathroom. She reported her breathing was much better. Review of Systems Other Constitutional: DENIES: Fever, Chills Eyes: DENIES: Blurred vision, Diplopia Respiratory: COMPLAINS OF: Cough, Wheezing, Hemoptysis, Shortness of breath Cardiovascular: COMPLAINS OF: Chest pain, Dyspnea on Exertion, DENIES: Palpitations, Syncope, Lower Extremity Edema Gastrointestinal: DENIES: Abdominal pain, Constipation, Diarrhea, Nausea, Vomiting Genitourinary: DENIES: Dysuria Musculoskeletal: COMPLAINS OF: Back pain, DENIES: Joint pain Integumentary: DENIES: Rash Hematologic/lymphatic: COMPLAINS OF: Bruising (L wrist) Neurologic: DENIES: Headache Psychiatric: COMPLAINS OF: Anxiety, DENIES: Confusion Past Family Social History Past Medical History Right breast cancer diagnosed in 2005 in [place] -- patient underwent lumpectomy with removal of axillary lymph nodes. Patient was followed by Dr. Smith of [facility], per pt no recurrence Chronic Low Back Pain. Asthma Hyperlipidemia [place] Palsy, recently diagnosed Left foot neuropathy, unknown cause Past Surgical History Abdominal Hernia repair x 3; Umbilical hernia repair Ovarian cyst removal Right breast lumpectomy with removal of axillary lymph nodes; Appendectomy; Throat operation (polyp removal) Allergies: Coded Allergies: Sulfa (Verified Allergy, Severe, SOB, 11/16/16) rash all over body Vibramycin (Verified Allergy, Severe, ANAPHALACTIC, 11/16/16) Penicillin (Verified Allergy, Intermediate, Rash, 11/16/16) Tetracycline (Verified Allergy, Intermediate, Rash, 11/16/16) Family History Reported Medications Reported Meds & Active Scripts Active Flexeril (Cyclobenzaprine HCl) 5 Mg Tab 5 Mg PO TID Lortab (Hydrocodone-Acetaminophen) 5-325 Mg Tab 1 Tab PO DAILY PRN Do not fill until November 25, 2016. Gabapentin 300 Mg Cap 300 Mg PO TID Diazepam 5 Mg Tab 5 Mg PO TID PRN Do not fill until 11/06/2016, thanks Proair Hfa 8.5 GM Inh (Albuterol Sulfate) 90 Mcg/Act Aer 1 Puff INH Q6HR PRN 108 mcg/actuation Albuterol Neb (Albuterol Sulfate) 2.5 Mg/3 Ml Neb 2.5 Mg NEB Q4HR NEB While awake Symbicort Inh (Budesonide/Formoterol Fumarate) 160-4.5 Mcg/Act Aero 2 Puff INH Q12HR Reported Simvastatin 40 Mg Tab 40 Mg PO DAILY Allergies: Mother - at age 95 from natural causes; H/O Diabetes Father - at age 60 from [facility] Social History Works through [employer]. Lives in a home; sister and her live with her Denies tobacco, alcohol, and illicit drug use Physical Exam Vital Signs Vital Signs Date Time Temp Pulse Resp B/P Pulse Ox O2 Delivery O2 Flow Rate FiO2 11/17/16 08:34 94 Nasal Cannula 1.00 11/17/16 06:00 101 11/17/16 05:24 22 11/17/16 04:00 98.2 99 20 134/71 96 11/17/16 04:00 99 11/17/16 02:00 99 11/17/16 00:00 107 11/17/16 00:00 98.8 107 20 141/77 92 11/16/16 22:00 107 11/16/16 21:01 94 Nasal Cannula 2.00 11/16/16 21:00 109 11/16/16 20:50 98.4 109 16 134/81 93 11/16/16 18:08 109 16 151/82 95 Nasal Cannula 2 11/16/16 17:30 108 16 138/71 96 Nasal Cannula 2 11/16/16 15:19 121 20 127/73 93 Nasal Cannula 2 11/16/16 11:51 112 16 108/59 97 Nasal Cannula 2 11/16/16 10:55 98 Nasal Cannula 2 11/16/16 10:16 123 24 115/72 96 Nasal Cannula 4 11/16/16 10:15 95 Nasal Cannula 5.00 11/16/16 10:13 98.6 118 28 91 Physical Exam GENERAL: Obese female getting up in room and walking around without distress SKIN: Warm and dry without rash. HEENT: Atraumatic. Normocephalic. No temporal or scalp tenderness. Pupils dilated bilaterally, equal and reactive to light. Extraocular motions intact. No scleral icterus. No injection or drainage. Nose without bleeding or purulent drainage. Nasal cannula in place. Dry mucous membranes. Airway patent. NECK: Trachea midline. No JVD or lymphadenopathy. Supple, nontender, no meningeal signs. CARDIOVASCULAR: Tachycardic with a regular rhythm. No murmurs, rubs, or gallops appreciated. 2+ pedal pulses. RESPIRATORY: Transmitted upper airway sounds but otherwise clear with an occasional end-expiratory wheeze at the bases. GASTROINTESTINAL: Abdomen soft, nontender, nondistended. No guarding or rebound. MUSCULOSKELETAL: Extremities without clubbing, cyanosis, or edema. No joint tenderness, effusion, or edema noted. No calf tenderness. Negative Homans sign bilaterally. NEUROLOGICAL: Awake and alert. Laboratory Laboratory Tests Test 11/16/16 11/16/16 11/16/16 11/16/16 10:35 12:45 13:30 13:34 White Blood Count 23.8 Red Blood Count 4.11 Hemoglobin 11.4 Hematocrit 35.5 Mean Corpuscular Volume 86.2 Mean Corpuscular Hemoglobin 27.8 Mean Corpuscular Hemoglobin 32.2 Concent Red Cell Distribution Width 18.9 Platelet Count 281 Mean Platelet Volume 7.5 Neutrophils (%) (Auto) 81.7 Lymphocytes (%) (Auto) 12.8 Monocytes (%) (Auto) 5.1 Eosinophils (%) (Auto) 0.2 Basophils (%) (Auto) 0.2 Neutrophils # (Auto) 19.4 Lymphocytes # (Auto) 3.0 Monocytes # (Auto) 1.2 Eosinophils # (Auto) 0.0 Basophils # (Auto) 0.0 CBC Comment AUTO DIFF Differential Total Cells 100 Counted Neutrophils % (Manual) 75 Band Neutrophils % 11 Lymphocytes % 12 Monocytes % 2 Neutrophils # (Manual) 20.5 Differential Comment FINAL DIFF MANUAL Platelet Estimate NORMAL Platelet Morphology Comment NORMAL Sodium Level 139 Potassium Level 4.7 Chloride Level 100 Carbon Dioxide Level 30.4 Anion Gap 9 Blood Urea Nitrogen 39 Creatinine 1.66 Estimat Glomerular Filtration 32 Rate Random Glucose 112 Calcium Level 8.3 Magnesium Level 2.0 Troponin I LESS THAN 0.02 B-Type Natriuretic Peptide 48 Lactic Acid Level 1.1 Urine Color YELLOW Urine Turbidity CLEAR Urine pH 6.0 Urine Specific [place] 1.021 Urine Protein TRACE Urine Glucose (UA) NEG Urine Ketones NEG Urine Occult Blood NEG Urine Nitrite NEG Urine Bilirubin NEG Urine Urobilinogen LESS THAN 2.0 Urine Leukocyte Esterase SMALL Urine RBC LESS THAN 1 Urine WBC 2 Urine Squamous Epithelial 2 Cells Urine Bacteria RARE Urine Hyaline Casts 2 Urine Mucus FEW Microscopic Urinalysis Comment CULT NOT INDICATED Urine Opiates Screen POS Urine Barbiturates Screen NEG Urine Amphetamines Screen NEG Urine Benzodiazepines Screen POS Urine Cocaine Screen NEG Urine Cannabinoids Screen NEG Blood Gas Puncture Site [place] LINE Blood Gas Patient Temperature 98.6 Venous Blood pH 7.33 Venous Blood Partial Pressure 51 CO2 Venous Blood Partial Pressure 34 O2 Venous Blood HCO3 27 Venous Blood Oxygen Saturation 61 Venous Blood Oxygen Content 8.6 Venous Blood Base Excess 1.2 Oxygen Delivery Device NASAL CANNULA Blood Gas Liter Flow 2 Test 3/8/17 3/8/17 3/9/17 20:40 21:00 04:07 Prothrombin Time 10.8 Prothromb Time International 1.0 Ratio Activated Partial 80.9 34.8 Thromboplast Time Nasal Screen MRSA (PCR) NEGATIVE White Blood Count 15.0 Red Blood Count 3.61 Hemoglobin 9.9 Hematocrit 31.4 Mean Corpuscular Volume 87.0 Mean Corpuscular Hemoglobin 27.4 Mean Corpuscular Hemoglobin 31.5 Concent Red Cell Distribution Width 18.0 Platelet Count 229 Mean Platelet Volume 7.6 Neutrophils (%) (Auto) 90.0 Lymphocytes (%) (Auto) 7.0 Monocytes (%) (Auto) 2.6 Eosinophils (%) (Auto) 0.1 Basophils (%) (Auto) 0.3 Neutrophils # (Auto) 13.5 Lymphocytes # (Auto) 1.0 Monocytes # (Auto) 0.4 Eosinophils # (Auto) 0.0 Basophils # (Auto) 0.0 CBC Comment DIFF FINAL Differential Comment Sodium Level 141 Potassium Level 4.2 Chloride Level 104 Carbon Dioxide Level 28.5 Anion Gap 9 Blood Urea Nitrogen 26 Creatinine 1.09 Estimat Glomerular Filtration 52 Rate Random Glucose 156 Calcium Level 7.8 Date/Time Procedure Status Source Growth 11/16/16 12:45 Aerobic Blood Culture Received Blood Peripheral Pending 11/16/16 12:45 Anaerobic Blood Culture Received Blood Peripheral Pending Result Diagram: 11/17/16 0407 11/17/16 0407 Imaging Chest X-Ray 11/16/16 1029 Signed Impressions: Service Date/Time: Wednesday, November 16, 2016 10:33 - CONCLUSION: Mild bibasilar consolidation. Low Almazan MD Lung Scan-V Nuclear Medicine 11/16/16 0000 Signed Impressions: Service Date/Time: Wednesday, November 16, 2016 14:10 - CONCLUSION: Intermediate to high probability for PE. Low Almazan MD Assessment and Plan Assessment and Plan 56 year old female with asthma, anxiety, and chronic back pain is admitted for acute onset shortness of breath and hypoxia. She was found to have [id number] probability V/Q scan and was admitted to the unit overnight for close monitoring and anticoagulation on a heparin drip. Initially on arrival , given leukocytosis, tachycardia, and chest x-ray finding of mild bibasilar consolidations, she was started on IV antibiotics to cover for hospital acquired pneumonia since she was hospitalized from 11/12-11/15. Problem List: (1) Pulmonary emboli Status: Acute Plan: Patient presenting with acute onset shortness of breath, anxiety, and hypoxia. Arrived to the ER on BiPAP and once removed O2 sat went down to 81%, back up to 95% on 5L and now stable at 93-97% on 1L. Tachycardic is chronic and review of EMR/outpatient visits shows average heart rate in low 100s since at least 2013 but never quite as high as 123 during this ER visit. V/Q scan ordered in light of patient's JEY showing [id number] probability for PE. Patient is hemodynamically stable at this time and can be transferred out of [facility]. - No symptoms of DVT on exam and patient was ambulating regularly and given prophylactic anticoagulation during recent hospitalization. History of breast cancer but no known current malignancy. Well's score is 2.5 (hemoptysis + tachycardia) - Initiated heparin drip with bolus. Monitor CBC and coags per protocol - Supplemental O2 - Check EKG - Will discuss with case management tomorrow about possible Xarelto coverage otherwise will initiate Coumadin - Morphine for pleuritic chest pain 2 mg IV Q3H (hold for sedation) (2) Sepsis Status: Acute Plan: Patient with white count up to 23.8, tachycardia, hypoxia, and possible source of infection with CXR showing mild bibasilar consolidations. Lactic acid WNL. Though it can all be attributed to the patient's PE, the CBC also shows a left shift with bandemia, and given that she was recently hospitalized, we will treat for hospital-acquired pneumonia with IV Aztreonam (since PCN allergic) and IV vancomycin. - Currently afebrile and hemodynamically stable but monitor closely - Blood cultures pending - Check U/A (3) JEY (acute kidney injury) Status: Acute Plan: Creatinine last admission ~1.00 and this admission it was up to 1.66 with BUN elevated to 39. Etiology possible dehydration vs. systemic inflammatory response. vs. ATN vs. medications. Electrolytes WNL. - Monitor closely, better today - NS at 100 ml/hr - Avoid nephrotoxic agents (4) Asthma Status: Chronic Plan: Patient recently admitted from 11/12-11/15 with exacerbation; was discharged on Levaquin and Prednisone. - DuoNeb Q4H - Albuterol neb Q2H PRN - SoluMedrol 60 mg IV x 1 then 40 mg IV cut down to 60 mg po prednisone tomorrow as she has her current problems from PE and is not having asthma right now to a high degree - Continue home Symbicort - Supplemental O2 PRN (5) Anxiety Status: Chronic Plan: Patient extremely anxious which is likely a combination of her baseline anxiety and the PE. Ativan 1 mg IV Q4H PRN. Hold home Valium to avoid oversedation. can restart some of her regular meds as she still has some anxiety and "stress" (6) Nutrition, metabolism, and development symptoms Status: Acute Plan: - Fluids: NS at 100 ml/hr - Electrolytes: WNL. Monitor and replete as needed - Nutrition: Regular diet - GI prophylaxis: Protonix 40 mg PO daily Chronic conditions: - Neuropathy: Continue gabapentin - HLD: Continue statin Physician Certification 2 Midnight Certification Type: Admission for Inpatient Services Order for Inpatient Services The services are ordered in accordance with Medicare regulations or non- Medicare payer requirements, as applicable. In the case of services not specified as inpatient-only, they are appropriately provided as inpatient services in accordance with the 2-midnight benchmark. Estimated LOS (days): 3 3 days is the estimated time the patient will need to remain in the hospital, assuming treatment plan goals are met and no additional complications. Post-Hospital Plan: Home Problem Qualifiers (1) Pulmonary emboli: Qualified Code: I26.99 - Other acute pulmonary embolism without acute cor pulmonale (2) Sepsis: Qualified Code: A41.9 - Sepsis, due to unspecified organism (3) Asthma: Qualified Code: J45.20 - Mild intermittent asthma without complication Kirti Magallon MD Nov 17, 2016 08:50
--- NOTE | 2016-11-17 08:52 | HHI.FPPN ---
Subjective Remarks Pt seen and examined this morning. AFVSS. Sleeping comfortably prior to encounter and drowsy trying to wake up. States it's the most sleep she's had in days. Reports she is feeling better than yesterday though still coughing and with pleuritic chest pain. Had specks of blood in cough. Feeling less anxious. Tolerating PO. Objective Vitals Vital Signs Date Time Temp Pulse Resp B/P Pulse Ox O2 Delivery O2 Flow Rate FiO2 11/17/16 08:34 94 Nasal Cannula 1.00 11/17/16 06:00 101 11/17/16 05:24 22 11/17/16 04:00 98.2 99 20 134/71 96 11/17/16 04:00 99 11/17/16 02:00 99 11/17/16 00:00 107 11/17/16 00:00 98.8 107 20 141/77 92 11/16/16 22:00 107 11/16/16 21:01 94 Nasal Cannula 2.00 11/16/16 21:00 109 11/16/16 20:50 98.4 109 16 134/81 93 11/16/16 18:08 109 16 151/82 95 Nasal Cannula 2 11/16/16 17:30 108 16 138/71 96 Nasal Cannula 2 11/16/16 15:19 121 20 127/73 93 Nasal Cannula 2 11/16/16 11:51 112 16 108/59 97 Nasal Cannula 2 11/16/16 10:55 98 Nasal Cannula 2 11/16/16 10:16 123 24 115/72 96 Nasal Cannula 4 11/16/16 10:15 95 Nasal Cannula 5.00 11/16/16 10:13 98.6 118 28 91 I/O 11/16/16 11/16/16 11/16/16 11/17/16 11/17/16 11/17/16 07:00 15:00 23:00 07:00 15:00 23:00 Intake Total 1166 ml 1440 ml Output Total 1650 ml 725 ml Balance -484 ml 715 ml Intake Oral 600 ml 600 ml IV Total 566 ml 840 ml Output Urine Total 1650 ml 725 ml # Voids 0 # Bowel Movements 0 0 Result Diagram: 11/17/1640611/17/16406 Objective Remarks GENERAL: Obese female laying in bed in NAD. SKIN: Warm and dry without rash. Bruising over left wrist. HEENT: AT/NC. Pupils equal and round. No scleral icterus or conjunctival injection. No nasal drainage. Nasal cannula in place. MMM. NECK: Supple without tender LAD. CARDIO: Tachycardic with a regular rhythm. No murmurs, rubs, or gallops appreciated. 2+ pedal pulses. RESP: Anterior lung sounds CTAB without wheezes or crackles. GI: Abdomen soft, nontender, nondistended. No guarding or rebound. EXTREM: No LE edema. No calf tenderness. Negative Homans sign bilaterally. NEURO: Awake and alert. A/P Assessment and Plan 56 year old female with asthma, anxiety, and chronic back pain was admitted for acute onset shortness of breath and hypoxia. She was found to have qqywvliy-ol-yhzy probability V/Q scan and was started on a heparin drip. Initially on arrival, given leukocytosis, tachycardia, and CXR finding of mild bibasilar consolidations, she was started on IV Vancomycin and Aztreonam to cover for hospital-acquired pneumonia since she was hospitalized from 11/12-11/15. Discharge Planning Pending clinical improvement. Problem List: (1) Pulmonary emboli Status: Acute Plan: Patient presenting with acute onset shortness of breath, anxiety, and hypoxia. Arrived to the ER on BiPAP and once removed O2 sat went down to 81%, back up to 95% on 5L and now stable at 93-97% on 2L. Tachycardic is chronic and review of EMR/outpatient visits shows average heart rate in low 100s since at least 2013 but never quite as high as 123 during this ER visit. V/Q scan ordered in light of patient's JEY showing [id number] probability for PE with multiple foci . Patient is hemodynamically stable at this time but will be closely monitored in the unit overnight. - No symptoms of DVT on exam and patient was ambulating regularly and given prophylactic anticoagulation during recent hospitalization. History of breast cancer but no known current malignancy. Well's score is 2.5 (hemoptysis + tachycardia) - Continue heparin drip and monitor CBC and coags per protocol - Supplemental O2 - Morphine for pleuritic chest pain 2 mg IV Q3H (hold for sedation) (2) Sepsis Status: Acute Plan: On admission, patient with white count up to 23.8, tachycardia, hypoxia, and possible source of infection with CXR showing mild bibasilar consolidations. Lactic acid WNL. Though it can all be attributed to the patient' s PE, the CBC also shows a left shift with bandemia, and given that she was recently hospitalized, we will treat for hospital-acquired pneumonia with IV Aztreonam (since PCN allergic) and IV vancomycin. - Currently afebrile and hemodynamically stable - Blood cultures pending - U/A negative and no symptoms or UTI (3) JEY (acute kidney injury) Status: Acute Plan: Creatinine last admission ~1.00 and yesterday up to 1.66 with BUN elevated to 39. Etiology possible dehydration vs. systemic inflammatory response. vs. ATN vs. medications. Electrolytes WNL. - Improved today with BUN 26 and creatinine 1.09 - Monitor closely - NS at 100 ml/hr - Avoid nephrotoxic agents (4) Asthma Status: Chronic Plan: Patient recently admitted from 11/12-11/15 with exacerbation; was discharged on Levaquin and Prednisone. - DuoNeb Q4H - Albuterol neb Q2H PRN - SoluMedrol 40 mg IV daily - Continue home Symbicort - Supplemental O2 PRN (5) Anxiety Status: Chronic Plan: Patient extremely anxious which is likely a combination of her baseline anxiety and the PE. Ativan 1 mg IV Q4H PRN. Hold home Valium to avoid oversedation. (6) Nutrition, metabolism, and development symptoms Status: Acute Plan: - Fluids: NS at 100 ml/hr - Electrolytes: WNL. Monitor and replete as needed - Nutrition: Regular diet - GI prophylaxis: Protonix 40 mg PO daily Chronic conditions: - Neuropathy: Continue gabapentin - HLD: Continue statin mere Magallon Problem Qualifiers (1) Sepsis: Qualified Code: A41.9 - Sepsis, due to unspecified organism Andreia Figueroa MD Nov 17, 2016 08:52
[2016-11-17] MEDS: BUDESONIDE-FORMOTEROL 160/4.5 MCG INHALER INH SCH ×2 (09:00→22:31)
[2016-11-17] MEDS ORDERED: methylPREDNISolone SOD SUCC 40 MG/1 ML VIAL IV PUSH SCH (09:00)
[2016-11-17] MEDS: guaiFENesin E.R. 600 MG TAB PO SCH ×2 (09:16→21:09)
[2016-11-17] MEDS: PRAVASTATIN SOD 80 MG TAB PO SCH (09:16)
[2016-11-17] MEDS: PANTOPRAZOLE SOD 40 MG DELAYED RELEASE TAB PO SCH (09:16)
[2016-11-17] MEDS: GABAPENTIN 400 MG CAP PO SCH ×2 (09:16→21:09)
[2016-11-17] MEDS: SODIUM CHLORIDE 0.9% FLUSH 5 ML FLUSH IV SCH ×2 (09:16→21:00)
[2016-11-17] MEDS ORDERED: INFLUENZA VIRUS VACCINE (QUADRIVALENT) 0.5 ML SYR IM ONE (10:00)
--- NOTE | 2016-11-17 10:44 | EKG ---
Date Performed: 11/16/2016 Time Performed: 17:53:01 PTAGE: 56 years EKG: SINUS TACHYCARDIA WITH SHORT [place] INTERVAL ABNORMAL RHYTHM ECG PREVIOUS TRACING : 11/12/2016 15.22 Compared to prior tracing no significant change DOCTOR: Otoniel Koch Interpretating Date/Time 11/17/2016 10:42:51
[2016-11-17 11:47] LABS: APTT (PATIENT) 46.5 SEC (24.3-30.1)
[2016-11-17] MEDS ORDERED: VANCOMYCIN INJ 1,000 MG in SODIUM CHLOR 0.9% 250 ML INJ 250 ML IV SCH (12:00)
[2016-11-17] MEDS: HEPARIN-D5W INJ 250 ML IV SCH (12:46)
[2016-11-17 17:49] LABS: APTT (PATIENT) 27.3 SEC (24.3-30.1)
[2016-11-17] MEDS: TEMAZEPAM 15 MG CAP PO PRN (21:08)
[2016-11-18] VITALS (9 sets, daily range): BP systolic 135–162; BP diastolic 84–107; PULSE 100–112; RESP 18–22; TEMP 97.3–99.2; O2SAT 92–99
[2016-11-18] MEDS: LORazepam 2 MG/ML VIAL IV PUSH PRN ×3 (00:04→12:43)
[2016-11-18] MEDS: RESP: ALBUTEROL 2.5 MG/IPRATROPIUM 0.5 MG NEB (SCH) NEB ×6 (00:14→19:04)
[2016-11-18 00:36] LABS: APTT (PATIENT) 40.4 SEC (24.3-30.1)
[2016-11-18] MEDS: CHLORHEXIDINE GLUCONATE 2 % 1 PACK (2 CLOTHS)(taper/protocol) TOP SCH (03:33)
[2016-11-18] MEDS: MORPHINE SULFATE 4 MG/ML INJ IV PUSH PRN ×5 (06:29→21:22)
[2016-11-18] MEDS: RESP: ALBUTEROL 2.5 MG/3 ML NEB (PRN) NEB (06:31)
[2016-11-18] MEDS: AZTREONAM INJ 2,000 MG in SODIUM CHLORIDE 0.9% INJ 100 ML IV SCH (06:32)
[2016-11-18 06:49] LABS: APTT (PATIENT) 47.7 SEC (24.3-30.1)
--- NOTE | 2016-11-18 08:15 | HHI.FPPN ---
Subjective Remarks Pt seen and examined this morning. No acute events overnight. Patient reports that she is feeling better but still endorses some shortness of breath, cough, and wheezing. She feels extremely anxious and is agreeable to being on something for her anxiety aside from benzodiazepines PRN. She continues to have mild pleuritic chest pain and occasional specks of blood in her cough. Endorses burning in both of her feet. Tolerating PO without nausea or vomiting. Discussed options of Xarelto or Coumadin with her and she prefers Xarelto. ( Andreia Figueroa MD) Objective Vitals Vital Signs Date Time Temp Pulse Resp B/P Pulse Ox O2 Delivery O2 Flow Rate FiO2 11/18/16 06:30 97.9 109 20 152/87 93 11/18/16 00:14 93 11/18/16 00:00 98.2 101 19 135/91 99 11/17/16 20:00 98.5 113 22 153/83 94 11/17/16 15:47 94 Nasal Cannula 1.00 11/17/16 15:15 98.5 78 22 143/92 97 11/17/16 12:00 114 11/17/16 12:00 98.0 112 23 147/68 22 11/17/16 08:34 94 Nasal Cannula 1.00 I/O 11/17/16 11/17/16 11/17/16 11/18/16 11/18/16 11/18/16 07:00 15:00 23:00 07:00 15:00 23:00 Intake Total 1440 ml 1528 ml 840 ml 720 ml Output Total 725 ml 1600 ml Balance 715 ml -72 ml 840 ml 720 ml Intake Oral 600 ml 500 ml 840 ml 720 ml IV Total 840 ml 1028 ml Output Urine Total 725 ml 1600 ml # Voids 3 3 # Bowel Movements 0 1 (Andreia Figueroa MD) Result Diagram: 11/17/1640611/17/16406 Objective Remarks GENERAL: Obese female laying in bed in NAD. Teary and anxious. SKIN: Warm and dry without rash. Bruising over left wrist. HEENT: AT/NC. Pupils equal and round. No scleral icterus or conjunctival injection. No nasal drainage. MMM. NECK: Supple without tender LAD. CARDIO: Tachycardic with a regular rhythm. No murmurs, rubs, or gallops appreciated. 2+ pedal pulses. RESP: CTAB with end-expiratory wheeznig at the bases. GI: Abdomen soft, nontender, nondistended. No guarding or rebound. EXTREM: No LE edema. No calf tenderness. Negative Homans sign bilaterally. NEURO: Awake and alert. PSYCH: Anxious. (Andreia Figueroa MD) A/P Assessment and Plan 56 year old female with asthma, anxiety, and chronic back pain was admitted for acute onset shortness of breath and hypoxia. She was found to have [id number] probability V/Q scan and was placed on a heparin drip. She was transferred out of the unit yesterday and today she is off supplemental oxygen. Initially on arrival, given leukocytosis, tachycardia, and chest x-ray finding of mild bibasilar consolidations, she was started on IV antibiotics to cover for hospital acquired pneumonia since she was hospitalized from 11/12-11/15. Discharge Planning Pending clinical improvement. (Andreia Figueroa MD) Attending Attestation Patient seen and examined. Case reviewed and discussed with the resident team. Agree with plan of care as discussed with me and documented in the resident note. her breathing is greatly improved (Kirti Magallon MD) Problem List: (1) Pulmonary emboli Status: Acute Plan: Patient presenting with acute onset shortness of breath, anxiety, and hypoxia. Arrived to the ER on BiPAP and once removed O2 sat went down to 81%, back up to 95% on 5L and now stable at 93-97% on 1L. Tachycardic is chronic and review of EMR/outpatient visits shows average heart rate in low 100s since at least 2013 but never quite as high as 123 during this ER visit. V/Q scan ordered in light of patient's JEY showing [id number] probability for PE with numerous small to moderate sized peripheral foci. No symptoms of DVT on exam and patient was ambulating regularly and given prophylactic anticoagulation during recent hospitalization. History of breast cancer but no known current malignancy. Well's score is 2.5 (hemoptysis + tachycardia). - Remained hemodynamically stable - Now off of oxygen - Continue heparin drip. Will either discontinue later and start Xarelto or continue if starting on Coumadin until therapeutic. Case management assisting with coverage options - Supplemental O2 PRN - Morphine for pleuritic chest pain 2 mg IV Q3H (hold for sedation) (2) Sepsis Status: Acute Plan: Patient with white count up to 23.8, tachycardia, hypoxia, and possible source of infection with CXR showing mild bibasilar consolidations. Lactic acid WNL. Though it can all be attributed to the patient's PE, the CBC also shows a left shift with bandemia, and given that she was recently hospitalized, she was treated for hospital-acquired pneumonia with IV Aztreonam (since PCN allergic) and IV vancomycin. Will change to PO Levaquin today. - Currently afebrile and hemodynamically stable - Blood cultures negative (3) Asthma Status: Chronic Plan: Patient recently admitted from 11/12-11/15 with exacerbation; was discharged on Levaquin and Prednisone. - DuoNeb Q4H - Albuterol neb Q2H PRN - Prednisone 40 mg PO daily - Continue home Symbicort - Supplemental O2 PRN (4) Anxiety Status: Chronic Plan: Patient extremely anxious which is likely a combination of her baseline anxiety, the PE, and steroids. - Ativan 1 mg IV Q4H PRN - Unclear if she has underlying hypomania or if she is just worked up from the steroids. Will taper steroids - Consult psychiatry for medication assistance (5) Nutrition, metabolism, and development symptoms Status: Acute Plan: - Fluids: Tolerating PO - Electrolytes: WNL. Monitor and replete as needed - Nutrition: Regular diet - GI prophylaxis: Protonix 40 mg PO daily Chronic conditions: - Neuropathy: Continue gabapentin - HLD: Continue statin dw Dr. Magallon (Andreia Figueroa MD) Problem Qualifiers (1) Pulmonary emboli: Qualified Code: I26.99 - Other acute pulmonary embolism without acute cor pulmonale (2) Sepsis: Qualified Code: A41.9 - Sepsis, due to unspecified organism (3) Asthma: Qualified Code: J45.20 - Mild intermittent asthma without complication Andreia Figueroa MD Nov 18, 2016 08:15 Kirti Magallon MD Nov 19, 2016 14:09
[2016-11-18] MEDS: PANTOPRAZOLE SOD 40 MG DELAYED RELEASE TAB PO SCH (08:40)
[2016-11-18] MEDS: GABAPENTIN 400 MG CAP PO SCH ×2 (08:40→21:21)
[2016-11-18] MEDS: PRAVASTATIN SOD 80 MG TAB PO SCH (08:40)
[2016-11-18] MEDS: BUDESONIDE-FORMOTEROL 160/4.5 MCG INHALER INH SCH ×2 (08:40→21:24)
[2016-11-18] MEDS: guaiFENesin E.R. 600 MG TAB PO SCH ×2 (08:40→21:21)
[2016-11-18 08:51] LABS: AUTOMATED NEUTROPHIL # 10.3 TH/MM3 (1.8-7.7); BASOPHIL # 0.1 TH/MM3 (0-0.2); BASOPHIL % 0.4 % (0.0-2.0); EOSINOPHIL # 0.1 TH/MM3 (0-0.4); EOSINOPHIL % 0.7 % (0.0-4.0); HEMATOCRIT 31.7 % (35.0-46.0); LYMPH % 21.8 % (9.0-44.0); LYMPHOCYTE # 3.2 TH/MM3 (1.0-4.8); MEAN CELL VOLUME 86.1 FL (80.0-100.0); MEAN CORPUSCULAR HEMOGLOBIN 28.1 PG (27.0-34.0); MEAN CORPUSCULAR HGB CONC 32.6 % (32.0-36.0); MONO % 5.9 % (0.0-8.0); NEUT % 71.2 % (16.0-70.0); PLATELET COUNT 265 TH/MM3 (150-450); RED BLOOD COUNT 3.68 MIL/MM3 (4.00-5.30); RED CELL DISTRIBUTION WIDTH 18.2 % (11.6-17.2); WHITE BLOOD COUNT 14.5 TH/MM3 (4.0-11.0)
[2016-11-18 08:53] LABS: HEMO FLAGS AUTO DIFF
[2016-11-18] MEDS ORDERED: predniSONE 20 MG TAB PO SCH (09:00)
[2016-11-18] MEDS: SODIUM CHLORIDE 0.9% FLUSH 5 ML FLUSH IV SCH ×2 (09:00→21:24)
[2016-11-18 09:16] LABS: BICARBONATE 31.4 MEQ/L (21.0-32.0); POTASSIUM 4.3 MEQ/L (3.5-5.1)
[2016-11-18 09:27] LABS: SCAN/DIFF AUTO DIFF CONFIRMED
[2016-11-18] MEDS: HEPARIN-D5W INJ 250 ML IV SCH (10:27)
[2016-11-18] MEDS ORDERED: XARE15TA PO (13:11)
[2016-11-18] MEDS ORDERED: XARE20TA PO (13:11)
--- NOTE | 2016-11-18 13:35 | PD.CONS ---
Provisional Diagnosis Admission Date Nov 16, 2016 at 12:50 Fackler I. Specified anxiety, R/O steroid induced anxiety, Fackler II. Unspecified personality disorder Fackler III. PE, sepsis, JEY, asthma History of Present Illness Service Psychiatry Consult Requested By Primary Care Physician Jose Johnson MD HPI The patient is a 56 year-old woman, domiciled with her sister, unemployed, , without any previous psychiatric history, no previous psychiatric hospitalizations, no previous suicidal attempts, no history of taking psychotropics, with medical history of asthma, chronic back pain, who presented to the ER via [facility] for shortness of breath. The patient was discharged from the hospital day before after being admitted on 11/12 for asthma exacerbation. The patient reports initially at home she was feeling fine and walking up and down stairs and not requiring oxygen but later in the evening she had sudden onset shortness of breath despite several albuterol treatments; she became very anxious and called 911. She also endorses that she had one episode of hemoptysis at home as well. She arrived to the ER on BiPAP which was quickly taken off since she was not struggling to breathe. She endorsed chest pain when she took a deep breath in which was new for her. She states her symptoms are different than her typical asthma symptoms and she feels much worse than when she was just in the hospital. She expresses that she feels extremely anxious and wants something immediately for anxiety. Patient was diagnosed with PE. She has been very anxious, at times agitated and hostile, consulted to psychiatry for this reason. On psychiatric evaluation today patient is found agitated, refusing to stay with psychiatry, stating that she is not here to see a psychiatrist and she doesn't have any psychiatric condition , she was loud, but able to be verbally de-escalate. Patient denies depressive symptoms, she denies active anxiety at this moment, she denies suicidal or homicidal ideation, she denies visual and auditory hallucinations. Patient is partially oriented in time, she says that is February 2017, partially oriented in place, she knows that she is in a hospital, doesn't know the name and does not know the town, however she says is in [facility]. During the evaluation patient becomes disorganized and very irritable frequently, but mostly redirectable. Nurse in charge explained that the patient has episodic anxiety and agitation, at times she disorganized loud and hostile, but also clarifies that in her last hospitalization she was no different. I got collateral information from her sister Elly, . She adds that the patient doesn't have any previous psychiatric history, before she is started to decompensate of her respiratory problems "she was a normal, nice and caring person, as she ever has been"however, she has noticed that at times her sisters confused and not herself. She says that this morning she called her and she was transferred to community with her "but she was talking nonsense, I was unable to understand what was talking". Review of Systems Constitutional: DENIES: Diaphoretic episodes, Fatigue, Fever, Weight gain, Weight loss, Chills, Dizziness, Change in appetite, Night Sweats Endocrine: DENIES: Abnorml menstrual pattern, Heat/cold intolerance, Polydipsia , Polyuria, Polyphagia Eyes: DENIES: Blurred vision, Diplopia, Eye inflammation, Eye pain, Vision loss , Photosensitivity, Double Vision Ears, nose, mouth, throat: DENIES: Tinnitus, Hearing loss, Vertigo, Nasal discharge, Oral lesions, Throat pain, Hoarseness, Ear Pain, Running Nose, Epistaxis, Sinus Pain, Toothache, Odynophagia Respiratory: COMPLAINS OF: Sputum production, Shortness of breath, DENIES: Apneas, Cough, Snoring, Wheezing, Hemoptysis Cardiovascular: COMPLAINS OF: Chest pain, DENIES: Palpitations, Syncope, Dyspnea on Exertion, PND, Lower Extremity Edema, Orthopnea, Claudication Gastrointestinal: DENIES: Abdominal pain, Black stools, Bloody stools, Constipation, Diarrhea, Nausea, Vomiting, Difficulty Swallowing, Anorexia Genitourinary: DENIES: Abnormal vaginal bleeding, Dysmenorrhea, Dyspareunia, Sexual dysfunction, Urinary frequency, Urinary incontinence, Urgency, Hematuria , Dysuria, Nocturia, Vaginal discharge Hematologic/lymphatic: DENIES: Bruising, Lymphadenopathy Immunologic/allergic: DENIES: Eczema, Urticaria Psychiatric: COMPLAINS OF: Anxiety, DENIES: Confusion, Mood changes, Depression, Hallucinations, Agitation, Suicidal Ideation, Homicidal Ideation, Delusions Past Family Social History Coded Allergies: Sulfa (Verified Allergy, Severe, SOB, 11/16/16) rash all over body Vibramycin (Verified Allergy, Severe, ANAPHALACTIC, 11/16/16) Penicillin (Verified Allergy, Intermediate, Rash, 11/16/16) Tetracycline (Verified Allergy, Intermediate, Rash, 11/16/16) Active Scripts Rivaroxaban (Xarelto)20 Mg Tab20 Mg PO DAILY #30 TAB Ref 5 Prov:Andreia Figueroa MD 11/18/16 Rivaroxaban (Xarelto)15 Mg Tab15 Mg PO Q12HR #42 TAB Ref 0 Take 1 tab by mouth twice a day for 21 days Prov:Andreia Figueroa MD 11/18/16 Adjust Aluminum Cane/Roun 1 Mis Mis #1 Ea .route As Directed Prov:Andreia Figueroa MD 11/15/16 Prednisone 20 Mg Tab40 Mg PO DAILY #4 TAB Ref 0 Prov:Andreia Figueroa MD 11/15/16 Oxycodone-Acetaminophen 5-325 mg Tab1 Tab PO Q6H PRN (PAIN 5-10) #20 TAB Ref 0 Prov:Andreia Figueroa MD 11/15/16 Gabapentin (Neurontin)400 Mg Lhn672 Mg PO BID #60 CAP Ref 0 Prov:Andreia Figueroa MD 11/15/16 Cyclobenzaprine (Flexeril)5 Mg Tab5 Mg PO TID #90 TAB Ref 0 Prov:Jose Johnson MD R3 11/10/16 Diazepam 5 Mg Tab5 Mg PO TID PRN (ANXIETY) #90 TAB Ref 0 Do not fill until 11/06/2016, thanks Prov:Jose Johnson MD R3 10/27/16 Albuterol 8.5 GM Inh (Proair Hfa 8.5 GM Inh)90 Mcg/Act Aer1 Puff INH Q6HR PRN ( SHORTNESS OF BREATH) #1 INHALER Ref 0 108 mcg/actuation Prov:Brian Celestin MD R2 10/01/16 Albuterol Neb 2.5 Mg/3 Ml Neb2.5 Mg NEB Q4HR NEB #120 NEBULE Ref 0 While awake Prov:Jarvis Miranda MD R3 09/30/16 Budesonide-Formoterol Inh (Symbicort Inh)160-4.5 Mcg/Act Aero2 Puff INH Q12HR # 1 INHALER Ref 5 Prov:Jarvis Miranda MD R3 09/30/16 Reported Medications Simvastatin 40 Mg Tab40 Mg PO DAILY #30 TAB Ref 0 07/28/16 Discontinued Scripts Levofloxacin (Levaquin)750 Mg Byv008 Mg PO DAILY #2 TAB Ref 0 Prov:Andreia Figueroa MD 11/15/16 Hydrocodone-Acetaminophen (Lortab)5-325 Mg Tab1 Tab PO DAILY PRN (BREAKTHROUGH PAIN) #30 TAB Ref 0 Do not fill until November 25, 2016. Prov:Jose Johnson MD R3 11/09/16 Gabapentin 300 Mg Fex675 Mg PO TID #90 CAP Ref 3 Prov:Jose Johnson MD R3 11/09/16 Acyclovir (Zovirax)800 Mg Hyl650 Mg PO 5 TIMES A DAY #35 TAB Prov:Aristides Thorpe MD 11/07/16 Prednisone 20 Mg Tab20 Mg PO BID #10 TAB Prov:Aristides Thorpe MD 11/07/16 Benzonatate 200 Mg Kqw399 Mg PO TID PRN (COUGH) #21 CAP Ref 0 Prov:Sandee Kumari 10/29/16 Current Medications Medications (Trade) Dose Ordered Sig/Geovany Route Start Time Stop Time Status Last Admin (NS Flush) 2 ml BID IV 11/16/16 21:00 11/17/16 09:16 (NS Flush) 2 ml UNSCH PRN IV 11/16/16 13:00 11/17/16 20:00 (Symbicort 160-4.5 Inh) 2 puff Q12HR INH 11/16/16 21:00 11/18/16 08:40 (Neurontin) 400 mg BID PO 11/16/16 21:00 11/18/16 08:40 (Pravachol) 80 mg DAILY PO 11/17/16 09:00 11/18/16 08:40 (Pill Splitter) 1 ea UNSCH PRN OTHER 11/16/16 14:00 Guaifenesin 600 mg 600 mg BID PO 11/16/16 21:00 11/18/16 08:40 (NS 1000 ml Inj) 1,000 ml @ 100 mls/hr Q10H IV 11/16/16 14:00 11/17/16 02:57 (Heparin Inj) 5,000 units UNSCH PRN IV 11/16/16 22:00 Heparin Sodium (Porcine) 2500 units 2,500 units UNSCH PRN IV 11/16/16 22:00 (Heparin-D5W Inj) 250 ml @ 0 mls/hr TITRATE IV 11/16/16 16:00 11/18/16 10:27 (Morphine Inj) 2 mg Q3H PRN IV PUSH 11/16/16 16:30 11/18/16 10:23 (Ativan Inj) 1 mg Q4H PRN IV PUSH 11/16/16 17:00 11/18/16 12:43 (Protonix) 40 mg DAILY PO 11/16/16 18:00 11/18/16 08:40 Miscellaneous Information Patient in critical care unit? Ass... Q361D XX 11/16/16 22:00 (Chlorhexidine 2% Cloth) 3 pack DAILY@04 TOP 11/17/16 04:00 11/21/16 04:01 11/16/16 22:00 (Chlorhexidine 2% Cloth) 3 pack UNSCH PRN TOP 11/16/16 22:00 11/21/16 21:46 (Restoril) 15 mg HS PRN PO 11/16/16 22:30 11/17/16 21:08 (Levaquin) 750 mg DAILY PO 11/19/16 12:00 (Deltasone) 20 mg DAILY PO 11/19/16 09:00 UNV Family History She denies Social History She lives with her sister, she is , unemployed. Physical Exam Vital Signs Vital Signs Date Time Temp Pulse Resp B/P Pulse Ox O2 Delivery O2 Flow Rate FiO2 11/18/16 12:47 99.2 111 22 138/96 93 11/18/16 08:18 21 11/17/16 15:47 Nasal Cannula 1.00 I/O 11/17/16 11/17/16 11/18/16 08:00 16:00 00:00 Intake Total 1440 ml 1528 ml 840 ml Output Total 725 ml 1600 ml Balance 715 ml -72 ml 840 ml Mental Status Examination Appearance Overweight woman, [facility], good hygiene, order to his stated age, irritable poorly cooperative Speech: Hesitant Orientation: Person, Place (partially), Time (partially) Thought Process: Loose Association Thought Content: Unremarkable Hallucination Type: None Attention and Concentration: Good Suicidal Ideation: No Previous Suicide Attempts: No Homicidal Ideation: No Previous Homicide Attempts: No Judgement: Poor Affect: Irritable Mood: Angry, Irritable Motor Activity: Normal gait Assessment & Plan Problem List: (1) Anxiety disorder, unspecified Assessment & Plan: The patient is a 50 years old woman without any previous psychiatric history, no previous psychiatric hospitalizations, no previous suicidal attempts, no previous use of psychotropics, medical history of asthma, lower back pain, hospitalized due to PE, sepsis. Patient has been presenting episodic anxiety, irritability, disorganized behavior and hostility. As per sister these behavior and presentation is not part of baseline of the patient. My impression is that these anxiety/mood swings are secondary to steroids and maybe delirium due to underlying medical conditions. Try to avoid benzodiazepines as much as possible since they can worsen respiratory symptoms of the patient, but also can worsen cognition and induced paradoxical aggressive reaction. If patient becomes agitated and aggressive, would prefer Haldol 1-2 milligrams IM when necessary, for the anxiety and agitation, would recommend Seroquel 25 mg twice a day, if patient can tolerate and continued to be agitated and anxious can be increased to 50 mg twice a day. I will follow- up. Consult appreciated. ICD Code: F41.9 Assessment & Plan Estimated LOS: Patrick Gaxiola MD Nov 18, 2016 13:35
[2016-11-18] MEDS: SODIUM CHLOR 0.9% 1000 ML INJ 1,000 ML IV SCH ×2 (14:13→21:23)
--- NOTE | 2016-11-18 14:19 | HHI.FF ---
Face to Face Verification Diagnosis: (1) Pulmonary emboli (2) Asthma Physical Therapy Order: Evaluate and Treat, Improve ambulation, Strength and gait training Home Health Nursing Order: Medication education-adverse effect Nursing assessment with vital signs I have seen patient Yomaira Caldwell on 11/18/16. My clinical findings support the need for the requested home health care services because: Patient has SOB Deconditioned w/ increased weakness High risk of falls I certify that my clinical findings support that this patient is homebound because: Hx COPD- exertion dyspnea/weakness Unsteady gait/balance Andreia Figueroa MD Nov 18, 2016 14:19
[2016-11-18] MEDS ORDERED: HALOPERIDOL LACTATE 5 MG/ML AMP IV PUSH ONE (15:00)
[2016-11-18] MEDS: RIVAROXABAN 15 MG TAB PO SCH (17:49)
[2016-11-18] MEDS: TEMAZEPAM 15 MG CAP PO PRN (21:21)
[2016-11-19] VITALS (8 sets, daily range): BP systolic 99–142; BP diastolic 68–97; PULSE 104–121; RESP 16–20; TEMP 96.9–98.7; O2SAT 90–97
[2016-11-19] MEDS: RESP: ALBUTEROL 2.5 MG/IPRATROPIUM 0.5 MG NEB (SCH) NEB ×6 (00:01→19:42)
[2016-11-19] MEDS: SODIUM CHLOR 0.9% 1000 ML INJ 1,000 ML IV SCH ×3 (01:08→20:42)
[2016-11-19] MEDS: CHLORHEXIDINE GLUCONATE 2 % 1 PACK (2 CLOTHS)(taper/protocol) TOP SCH (04:00)
[2016-11-19 05:48] LABS: AUTOMATED NEUTROPHIL # 8.8 TH/MM3 (1.8-7.7); BASOPHIL % 0.3 % (0.0-2.0); EOSINOPHIL # 0.1 TH/MM3 (0-0.4); EOSINOPHIL % 0.6 % (0.0-4.0); HEMATOCRIT 33.1 % (35.0-46.0); HEMO FLAGS DIFF FINAL; LYMPH % 26.2 % (9.0-44.0); LYMPHOCYTE # 3.4 TH/MM3 (1.0-4.8); MEAN CELL VOLUME 85.9 FL (80.0-100.0); MEAN CORPUSCULAR HEMOGLOBIN 27.7 PG (27.0-34.0); MEAN CORPUSCULAR HGB CONC 32.2 % (32.0-36.0); MONO % 5.7 % (0.0-8.0); NEUT % 67.2 % (16.0-70.0); PLATELET COUNT 285 TH/MM3 (150-450); RED BLOOD COUNT 3.86 MIL/MM3 (4.00-5.30); RED CELL DISTRIBUTION WIDTH 17.7 % (11.6-17.2); WHITE BLOOD COUNT 13.1 TH/MM3 (4.0-11.0)
[2016-11-19 05:53] LABS: APTT (PATIENT) 23.8 SEC (24.3-30.1)
[2016-11-19 06:04] LABS: BICARBONATE 32.1 MEQ/L (21.0-32.0); POTASSIUM 4.5 MEQ/L (3.5-5.1)
[2016-11-19] MEDS: MORPHINE SULFATE 4 MG/ML INJ IV PUSH PRN ×6 (06:26→21:46)
[2016-11-19] MEDS ORDERED: predniSONE 20 MG TAB PO SCH (09:00)
[2016-11-19] MEDS: PANTOPRAZOLE SOD 40 MG DELAYED RELEASE TAB PO SCH (09:23)
[2016-11-19] MEDS: SODIUM CHLORIDE 0.9% FLUSH 5 ML FLUSH IV SCH ×2 (09:23→20:08)
[2016-11-19] MEDS: guaiFENesin E.R. 600 MG TAB PO SCH (09:23)
[2016-11-19] MEDS: GABAPENTIN 400 MG CAP PO SCH ×2 (09:23→20:08)
[2016-11-19] MEDS: PRAVASTATIN SOD 80 MG TAB PO SCH (09:23)
[2016-11-19] MEDS: QUEtiapine FUMARATE 25 MG TAB PO SCH ×2 (09:23→12:34)
[2016-11-19] MEDS: BUDESONIDE-FORMOTEROL 160/4.5 MCG INHALER INH SCH ×2 (09:24→20:08)
[2016-11-19] MEDS: LORazepam 2 MG/ML VIAL IV PUSH PRN (09:27)
[2016-11-19] MEDS: RIVAROXABAN 15 MG TAB PO SCH ×2 (09:28→18:33)
--- NOTE | 2016-11-19 10:08 | HHI.FPPN ---
Subjective Remarks Pt seen and examined this morning. Initially very drowsy and difficult to wake up but then patient perked up to go to the restroom and drink her coffee. Reports breathing is better. Coughing still. Denies abdominal pain, nausea, or vomiting. Admits she feels confused but frustrated she has a bed alarm because she doesn't feel like she's going to fall and just wants to get up to use the restroom. (Andreia Figueroa MD) Objective Vitals Vital Signs Date Time Temp Pulse Resp B/P Pulse Ox O2 Delivery O2 Flow Rate FiO2 11/19/16 08:34 98.6 110 18 142/83 90 11/19/16 07:51 97 21 11/19/16 06:46 16 11/19/16 04:00 96.9 104 20 142/97 97 11/19/16 00:00 97.3 106 19 106/68 93 11/18/16 20:00 97.3 100 18 140/84 95 11/18/16 19:05 92 21 11/18/16 17:46 99.1 106 20 162/107 96 11/18/16 12:47 99.2 111 22 138/96 93 I/O 11/18/16 11/18/16 11/18/16 11/19/16 11/19/16 11/19/16 07:00 15:00 23:00 07:00 15:00 23:00 Intake Total 720 ml 4560 ml 1180 ml 480 ml Balance 720 ml 4560 ml 1180 ml 480 ml Intake Oral 720 ml 4560 ml 1080 ml 480 ml IV Total 100 ml # Voids 3 7 4 4 # Bowel Movements 1 0 (Andreia Figueroa MD) Result Diagram: 11/19/16 0504 11/19/16 0504 Objective Remarks GENERAL: Obese female laying in bed in NAD. Initially drowsy but awake and alert after several moments. SKIN: Warm and dry without rash. Bruising over left wrist. HEENT: AT/NC. Pupils equal and round. No scleral icterus or conjunctival injection. No nasal drainage. MMM. NECK: Supple without tender LAD. CARDIO: Tachycardic with a regular rhythm. No murmurs, rubs, or gallops appreciated. 2+ pedal pulses. RESP: CTAB with end-expiratory wheezing at the bases. GI: Abdomen soft, nontender, nondistended. No guarding or rebound. EXTREM: No LE edema. No calf tenderness. Negative Homans sign bilaterally. No palpable cords or signs of thrombophlebitis. NEURO: Awake and alert. (Andreia Figueroa MD) A/P Assessment and Plan 56 year old female with asthma, anxiety, and chronic back pain was admitted for acute onset shortness of breath and hypoxia. She was found to have zcsrjzhe-ch-gqpi probability V/Q scan and was placed on a heparin drip. Yesterday the drip was discontinued and the patent was started on Xarelto. Initially on arrival, given leukocytosis, tachycardia, and chest x-ray finding of mild bibasilar consolidations, she was started on IV antibiotics to cover for hospital acquired pneumonia since she was hospitalized from 11/12-11/15; she was transitioned to PO Levaquin yesterday. From a respiratory standpoint she has improved . Discharge Planning Anticipate D/C in 1-2 days if patient continues to improve. (Andreia Figueroa MD) Attending Attestation Patient seen and examined. Case reviewed and discussed with the resident team. Agree with plan of care as discussed with me and documented in the resident note. appreciate help Psychiatry. she is more confused and agree it could be some delirium with all her problems plus steroids, etc (Kirti Magallon MD) Problem List: (1) Pulmonary emboli Status: Acute Plan: Patient presenting with acute onset shortness of breath, anxiety, and hypoxia. Arrived to the ER on BiPAP and once removed O2 sat went down to 81%, back up to 95% on 5L and now stable at 93-97% on 1L. Tachycardic is chronic and review of EMR/outpatient visits shows average heart rate in low 100s since at least 2013 but never quite as high as 123 during this ER visit. V/Q scan ordered in light of patient's JEY showing [id number] probability for PE with numerous small to moderate sized peripheral foci. No symptoms of DVT on exam and patient was ambulating regularly and given prophylactic anticoagulation during recent hospitalization. History of breast cancer but no known current malignancy. Well's score is 2.5 (hemoptysis + tachycardia). - Remained hemodynamically stable - Now off of oxygen - Started on Xarelto 15 mg PO BID with meals - Supplemental O2 PRN - Morphine for pleuritic chest pain 2 mg IV Q3H (hold for sedation) (2) Pneumonia Status: Acute Plan: On admission, patient with white count up to 23.8, tachycardia, hypoxia, and possible source of infection with CXR showing mild bibasilar consolidations. Lactic acid WNL. Though it can all be attributed to the patient' s PE, the CBC also showed a left shift with bandemia, and given that she was recently hospitalized, she was treated for hospital-acquired pneumonia with IV Aztreonam (since PCN allergic) and IV vancomycin. Changed to PO Levaquin yesterday. - Currently afebrile and hemodynamically stable - Blood cultures negative (3) Asthma Status: Chronic Plan: Patient recently admitted from 11/12-11/15 with exacerbation; was discharged on Levaquin and Prednisone. - DuoNeb Q4H - Albuterol neb Q2H PRN - Continue home Symbicort - Supplemental O2 PRN (4) Anxiety Status: Chronic Plan: Patient extremely anxious which is likely a combination of her baseline anxiety, the PE, and steroids. - D/C steroids - Psych consulted; Seroquel BID - Ativan 0.5 mg PO Q6H PRN - Avoid overly sedating medications (5) Nutrition, metabolism, and development symptoms Status: Acute Plan: - Fluids: Tolerating PO - Electrolytes: WNL. Monitor and replete as needed - Nutrition: Regular diet - GI prophylaxis: Protonix 40 mg PO daily Chronic conditions: - Neuropathy: Continue gabapentin - HLD: Continue statin dw Dr. Magallon (Andreia Figueroa MD) Problem Qualifiers (1) Pulmonary emboli: Qualified Code: I26.99 - Other acute pulmonary embolism without acute cor pulmonale (2) Pneumonia: Qualified Code: J18.9 - Pneumonia of both lower lobes due to infectious organism (3) Asthma: Qualified Code: J45.20 - Mild intermittent asthma without complication Andreia Figueroa MD Nov 19, 2016 10:07 Kirti Magallon MD Nov 19, 2016 14:11
[2016-11-19] MEDS: LEVOFLOXACIN 750 MG TAB PO SCH (12:35)
[2016-11-19] MEDS ORDERED: diphenhydrAMINE HCL 25 MG CAP PO ONE (20:30)
[2016-11-19] MEDS: LORazepam 0.5 MG TAB PO PRN (21:46)
[2016-11-20] VITALS (7 sets, daily range): BP systolic 82–135; BP diastolic 58–80; PULSE 98–125; RESP 18–20; TEMP 96.5–100.1; O2SAT 92–97
[2016-11-20] MEDS: MORPHINE SULFATE 4 MG/ML INJ IV PUSH PRN ×5 (00:42→23:02)
[2016-11-20] MEDS: RESP: ALBUTEROL 2.5 MG/IPRATROPIUM 0.5 MG NEB (SCH) NEB ×5 (00:49→19:06)
[2016-11-20] MEDS: CHLORHEXIDINE GLUCONATE 2 % 1 PACK (2 CLOTHS)(taper/protocol) TOP SCH (04:00)
[2016-11-20] MEDS: LORazepam 0.5 MG TAB PO PRN ×2 (05:10→21:15)
[2016-11-20 06:29] LABS: AUTOMATED NEUTROPHIL # 6.4 TH/MM3 (1.8-7.7); BASOPHIL % 0.2 % (0.0-2.0); EOSINOPHIL # 0.2 TH/MM3 (0-0.4); EOSINOPHIL % 1.9 % (0.0-4.0); HEMATOCRIT 33.6 % (35.0-46.0); HEMO FLAGS DIFF FINAL; LYMPH % 31.9 % (9.0-44.0); LYMPHOCYTE # 3.4 TH/MM3 (1.0-4.8); MEAN CELL VOLUME 86.3 FL (80.0-100.0); MEAN CORPUSCULAR HEMOGLOBIN 27.7 PG (27.0-34.0); MEAN CORPUSCULAR HGB CONC 32.1 % (32.0-36.0); MONO % 6.1 % (0.0-8.0); NEUT % 59.9 % (16.0-70.0); PLATELET COUNT 261 TH/MM3 (150-450); RED BLOOD COUNT 3.89 MIL/MM3 (4.00-5.30); RED CELL DISTRIBUTION WIDTH 17.5 % (11.6-17.2); WHITE BLOOD COUNT 10.7 TH/MM3 (4.0-11.0)
[2016-11-20 06:44] LABS: BICARBONATE 31.6 MEQ/L (21.0-32.0); POTASSIUM 4.2 MEQ/L (3.5-5.1)
--- NOTE | 2016-11-20 08:59 | HHI.FPPN ---
Subjective Remarks Patient seen and examined this morning. Complaining of back pain. States during the day she tries to get out of bed and move around. Reports breathing is better but coughing and feeling like mucous is stuck in her chest. Asks for a breathing treatment even though one given about an hour prior. Denies further hemoptysis. Tolerating PO without nausea or vomiting. (Andreia Figueroa MD) Objective Vitals Vital Signs Date Time Temp Pulse Resp B/P Pulse Ox O2 Delivery O2 Flow Rate FiO2 11/20/16 07:24 92 Nasal Cannula 2.00 11/20/16 04:25 98.7 110 20 126/80 92 11/20/16 00:03 98.4 112 20 129/63 96 11/19/16 20:39 97.0 116 16 126/75 92 11/19/16 19:46 94 Nasal Cannula 2.00 11/19/16 16:00 97.5 117 18 99/77 94 11/19/16 12:39 98.7 121 18 117/74 91 I/O 11/19/16 11/19/16 11/19/16 11/20/16 11/20/16 11/20/16 07:00 15:00 23:00 07:00 15:00 23:00 Intake Total 480 ml 830 ml 240 ml 360 ml Output Total 300 ml Balance 480 ml 830 ml -60 ml 360 ml Intake Oral 480 ml 830 ml 240 ml 360 ml Output Urine Total 300 ml # Voids 4 5 5 # Bowel Movements 0 (Andreia Figueroa MD) Result Diagram: 11/20/16 0535 11/20/16 0535 Objective Remarks GENERAL: Obese female laying in bed in NAD. Gets up quickly to move around the room. Ambulating without unsteadiness. SKIN: Warm and dry without rash. Bruising over left wrist. HEENT: AT/NC. Pupils mildly dilated, equal and round and reactive to light. No scleral icterus or conjunctival injection. No nasal drainage. MMM. NECK: Supple without tender LAD. CARDIO: Tachycardic with a regular rhythm. No murmurs, rubs, or gallops appreciated. 2+ pedal pulses. RESP: CTAB with end-expiratory wheezing at the bases that clears after coughing. GI: Abdomen soft, nontender, nondistended. No guarding or rebound. EXTREM: No LE edema. No calf tenderness. Negative Homans sign bilaterally. No palpable cords or signs of thrombophlebitis. NEURO: Awake and alert. (Andreia Figueroa MD) A/P Assessment and Plan 56 year old female with asthma, anxiety, and chronic back pain was admitted for acute onset shortness of breath and hypoxia on 11/16. She was found to have fdtxbcma-tq-mcba probability V/Q scan and was placed on a heparin drip which she has since been transitioned to Xarelto since her insurance covers it without copay. Initially on arrival, given leukocytosis, tachycardia, and chest x-ray finding of mild bibasilar consolidations, she was started on IV antibiotics to cover for hospital acquired pneumonia since she was hospitalized from 11/12-11/15; she was transitioned to PO Levaquin and will have completed 10 total days of antibiotics from initial admission on 11/12 tomorrow. She was on 2L overnight therefore will do home O2 walk test to see if she has home oxygen needs. Anticipate her discharge to be tomorrow. Discharge Planning Anticipate D/C tomorrow. (Andreia Figueroa MD) Attending Attestation Patient seen and examined. Case reviewed and discussed with the resident team. Agree with plan of care as discussed with me and documented in the resident note. she's had back pain for a long time and had CTs of her entire spine (Kirti Magallon MD) Problem List: (1) Pulmonary emboli Status: Acute Plan: Patient presenting with acute onset shortness of breath, anxiety, and hypoxia. Arrived to the ER on BiPAP and once removed O2 sat went down to 81%, back up to 95% on 5L and now stable at 93-97% on 1L. Tachycardic is chronic and review of EMR/outpatient visits shows average heart rate in low 100s since at least 2013 but never quite as high as 123 during this ER visit. V/Q scan ordered in light of patient's JEY showing tqkbdvzewsdg-xw-kyqn probability for PE with numerous small to moderate sized peripheral foci. No symptoms of DVT on exam and patient was ambulating regularly and given prophylactic anticoagulation during recent hospitalization. History of breast cancer but no known current malignancy. Well's score is 2.5 (hemoptysis + tachycardia). - Remains hemodynamically stable - Started on Xarelto 15 mg PO BID with meals (x 21 days then 20 mg daily). Patient will need 6 months of anticoagulation - Supplemental O2 PRN - Home O2 walk test - Morphine for pleuritic chest pain 2 mg IV Q3H (hold for sedation) (2) Pneumonia Status: Acute Plan: On admission, patient with white count up to 23.8, tachycardia, hypoxia, and possible source of infection with CXR showing mild bibasilar consolidations. Lactic acid WNL. Though it can all be attributed to the patient' s PE, the CBC also showed a left shift with bandemia, and given that she was recently hospitalized, she was treated for hospital-acquired pneumonia with IV Aztreonam (since PCN allergic) and IV vancomycin. Transitioned to PO Levaquin ( will have 10 total days of antibiotics as of tomorrow when combining with first admission) - Currently afebrile and hemodynamically stable - Blood cultures negative (3) Asthma Status: Chronic Plan: Patient recently admitted from 11/12-11/15 with exacerbation; was discharged on Levaquin and Prednisone. - DuoNeb Q4H - Albuterol neb Q2H PRN - Continue home Symbicort - Supplemental O2 PRN - Avoiding steroids secondary to confusion and slight delirium (4) Anxiety Status: Chronic Plan: Patient extremely anxious which is likely a combination of her baseline anxiety, the PE, and steroids. - Psych consulted; Seroquel BID - Ativan 0.5 mg PO Q6H PRN - Avoid overly sedating medications (5) Nutrition, metabolism, and development symptoms Status: Acute Plan: - Fluids: Tolerating PO - Electrolytes: WNL. Monitor and replete as needed - Nutrition: Regular diet - GI prophylaxis: Protonix 40 mg PO daily Chronic conditions: - Neuropathy: Continue gabapentin - HLD: Continue statin dw Dr. Magallon (Andreia Figueroa MD) Problem Qualifiers (1) Pulmonary emboli: Qualified Code: I26.99 - Other acute pulmonary embolism without acute cor pulmonale (2) Pneumonia: Qualified Code: J18.9 - Pneumonia of both lower lobes due to infectious organism (3) Asthma: Qualified Code: J45.20 - Mild intermittent asthma without complication Andreia Figueroa MD Nov 20, 2016 08:59 Kirti Magallon MD Nov 23, 2016 15:00
[2016-11-20] MEDS: BUDESONIDE-FORMOTEROL 160/4.5 MCG INHALER INH SCH ×2 (09:00→20:02)
[2016-11-20] MEDS: QUEtiapine FUMARATE 25 MG TAB PO SCH ×2 (09:16→11:46)
[2016-11-20] MEDS: LEVOFLOXACIN 750 MG TAB PO SCH (09:16)
[2016-11-20] MEDS: GABAPENTIN 400 MG CAP PO SCH ×2 (09:16→20:01)
[2016-11-20] MEDS: guaiFENesin E.R. 600 MG TAB PO SCH ×2 (09:16→20:01)
[2016-11-20] MEDS: SODIUM CHLORIDE 0.9% FLUSH 5 ML FLUSH IV SCH ×2 (09:17→20:02)
[2016-11-20] MEDS: IBUPROFEN 600 MG TAB PO PRN ×2 (09:17→18:29)
[2016-11-20] MEDS: PANTOPRAZOLE SOD 40 MG DELAYED RELEASE TAB PO SCH (09:17)
[2016-11-20] MEDS: PRAVASTATIN SOD 80 MG TAB PO SCH (09:17)
[2016-11-20] MEDS: RIVAROXABAN 15 MG TAB PO SCH ×2 (09:24→17:35)
[2016-11-20] MEDS: RESP: ALBUTEROL 2.5 MG/3 ML NEB (PRN) NEB ×2 (09:57→21:39)
--- NOTE | 2016-11-20 15:42 | HHI.FPPN ---
Addendum to progress note ADDENDUM Reason for addendum: Additonal documentation Additional information Off-service note Ms. Caldwell is a 56 year old female with asthma, anxiety, and chronic back pain admitted on 11/16 for acute onset shortness of breath and hypoxia found to have a high probability of PE on V/Q scan. She was hemodynamically stable, placed on a heparin drip, and has since transitioned to Xarelto. Initially on arrival, given leukocytosis, tachycardia, and chest x-ray finding of mild bibasilar consolidations, she was started on IV vancomycin and aztreonam to cover for hospital acquired pneumonia since she was hospitalized from 11/12-11/15 ( for asthma exacerbation treated).She was transitioned to PO Levaquin and will have completed 10 total days of antibiotics from initial admission tomorrow () therefore the Levaquin can be stopped after tomorrow's dose. She has had some confusion and agitation this admission thought to be secondary to steroids given her concomitant asthma therefore they were stopped and benzodiazepines and narcotics were minimized as much as possible. She has severe anxiety and psychiatry was consulted during this admission who started her on Seroquel BID. She was much more awake today with no confusion and decreased anxiety compared to other days. Today home O2 walk test was ordered in anticipation that the patient can likely be discharged tomorrow. Case management is assisting with home healthcare on discharge. Andreia Figueroa MD Nov 20, 2016 15:42
[2016-11-20] MEDS ORDERED: diphenhydrAMINE HCL 25 MG CAP PO PRN (21:00)
[2016-11-21] VITALS (8 sets, daily range): BP systolic 102–153; BP diastolic 61–75; PULSE 67–116; RESP 16–20; TEMP 96–98.1; O2SAT 94–97
[2016-11-21] MEDS: RESP: ALBUTEROL 2.5 MG/3 ML NEB (PRN) NEB ×2 (01:08→03:33)
[2016-11-21] MEDS: MORPHINE SULFATE 4 MG/ML INJ IV PUSH PRN ×2 (02:04→05:42)
[2016-11-21] MEDS: IBUPROFEN 600 MG TAB PO PRN (03:48)
[2016-11-21] MEDS: CHLORHEXIDINE GLUCONATE 2 % 1 PACK (2 CLOTHS)(taper/protocol) TOP SCH (03:56)
[2016-11-21] MEDS: BUDESONIDE-FORMOTEROL 160/4.5 MCG INHALER INH SCH ×2 (09:00→20:29)
[2016-11-21] MEDS ORDERED: oxyCODONE/ACETAMINOPHEN 5 MG/325 MG TAB PO PRN (10:00)
[2016-11-21] MEDS: guaiFENesin E.R. 600 MG TAB PO SCH ×2 (10:21→20:29)
[2016-11-21] MEDS: LEVOFLOXACIN 750 MG TAB PO SCH (10:21)
[2016-11-21] MEDS: PRAVASTATIN SOD 80 MG TAB PO SCH (10:22)
[2016-11-21] MEDS: GABAPENTIN 400 MG CAP PO SCH ×2 (10:22→20:29)
[2016-11-21] MEDS: QUEtiapine FUMARATE 25 MG TAB PO SCH ×2 (10:22→12:01)
[2016-11-21] MEDS: RIVAROXABAN 15 MG TAB PO SCH ×2 (10:22→16:49)
[2016-11-21] MEDS: PANTOPRAZOLE SOD 40 MG DELAYED RELEASE TAB PO SCH (10:22)
[2016-11-21] MEDS: SODIUM CHLORIDE 0.9% FLUSH 5 ML FLUSH IV SCH ×2 (10:23→20:30)
--- NOTE | 2016-11-21 10:33 | HHI.FPPN ---
Subjective Remarks Patient seen this morning. Had low grade temp (100.1F) yesterday and BP drop to 80/60s. Per nursing, patient received morphine around the time of BP drop yesterday and felt overly sedated. Vitals this morning are essentially WNL. Sating between 94-97% on 2 L NC. Yomaira says she does not feel ready to go home. Still has moderate dyspnea. She feels she would benefit from cardiopulmonary rehab. She denies any CP overnight. No reported fever or N/V. She does report some sedation and dizziness with morphine. Would like to DC this. Also asking about sleeping medicine she received last hospitalization. Had some trouble falling asleep last night apparently. (Jarvis Miranda MD R3) Objective Vitals Vital Signs Date Time Temp Pulse Resp B/P Pulse Ox O2 Delivery O2 Flow Rate FiO2 11/21/16 08:00 96.0 96 20 102/74 97 11/21/16 08:00 94 Nasal Cannula 2.00 11/21/16 04:00 97.7 103 19 102/61 95 11/21/16 01:09 94 2.00 11/21/16 00:00 97.5 102 19 102/74 95 11/20/16 20:00 98.5 108 20 101/68 97 11/20/16 16:00 97.9 98 18 96/60 95 11/20/16 12:00 100.1 125 18 82/65 93 93/58 I/O 11/20/16 11/20/16 11/20/16 11/21/16 11/21/16 11/21/16 07:00 15:00 23:00 07:00 15:00 23:00 Intake Total 360 ml 700 ml 480 ml 720 ml Balance 360 ml 700 ml 480 ml 720 ml Intake Oral 360 ml 700 ml 480 ml 720 ml # Voids 5 4 2 3 (Jarvis Miranda MD R3) Result Diagram: 11/20/1653411/20/16534 Objective Remarks GENERAL: Obese female laying in bed in NAD. Gets up quickly to move around the room. Ambulating without unsteadiness. SKIN: Warm and dry without rash. Bruising over left wrist. HEENT: AT/NC. Pupils mildly dilated, equal and round and reactive to light. No scleral icterus or conjunctival injection. No nasal drainage. MMM. NECK: Supple without tender LAD. CARDIO: Tachycardic with a regular rhythm. No murmurs, rubs, or gallops appreciated. 2+ pedal pulses. RESP: Decreased air movement. Prolonged expiratory phase with faint end- expiratory wheezing. GI: Abdomen soft, nontender, nondistended. No guarding or rebound. EXTREM: No LE edema. No calf tenderness. Negative Homans sign bilaterally. No palpable cords or signs of thrombophlebitis. NEURO: Awake and alert. (Jarvis Miranda MD R3) A/P Assessment and Plan 56 year old female with asthma, anxiety, and chronic back pain was admitted for acute onset shortness of breath and hypoxia on 11/16. She was found to have glpposrc-zm-jjxw probability V/Q scan and was placed on a heparin drip which she has since been transitioned to Xarelto since her insurance covers it without copay. Initially on arrival, given leukocytosis, tachycardia, and chest x-ray finding of mild bibasilar consolidations, she was started on IV antibiotics to cover for hospital acquired pneumonia since she was hospitalized from 11/12-11/15; she was transitioned to PO Levaquin and will have completed 10 total days of antibiotics from initial admission on 11/12 today. She was on 2L overnight therefore will do home O2 walk test to see if she has home oxygen needs. Anticipate her discharge to be tomorrow. Discharge Planning Patient still c/o significant dyspnea and has O2 requirement. Based on walking O2 assessment yesterday, should go home on O2. Spoke with CM regarding dispo to SNF for cardiopulmonary rehab today, will follow up with them in the afternoon. PT seeing patient and has recommended HH +/- PT. Seen and discussed with Dr. Magallon (Jarvis Miranda MD R3) Attending Attestation Patient seen and examined. Case reviewed and discussed with the resident team. Agree with plan of care as discussed with me and documented in the resident note. (Kirti Magallon MD) Problem List: (1) Pulmonary emboli Status: Acute Plan: Patient presenting with acute onset shortness of breath, anxiety, and hypoxia. Arrived to the ER on BiPAP and once removed O2 sat went down to 81%, back up to 95% on 5L and now stable at 93-97% on 1L. Tachycardic is chronic and review of EMR/outpatient visits shows average heart rate in low 100s since at least 2013 but never quite as high as 123 during this ER visit. V/Q scan ordered in light of patient's JEY showing [id number]-rd-[id number] probability for PE with numerous small to moderate sized peripheral foci. No symptoms of DVT on exam and patient was ambulating regularly and given prophylactic anticoagulation during recent hospitalization. History of breast cancer but no known current malignancy. Well's score is 2.5 (hemoptysis + tachycardia). - Remains hemodynamically stable - Started on Xarelto 15 mg PO BID with meals (x 21 days then 20 mg daily). Patient will need 6 months of anticoagulation - Supplemental O2 PRN - Failed O2 home walk test. Will speak with CM regarding order for home O2. - Morphine for pleuritic chest pain 2 mg IV Q3H (hold for sedation) (2) Pneumonia Status: Acute Plan: On admission, patient with white count up to 23.8, tachycardia, hypoxia, and possible source of infection with CXR showing mild bibasilar consolidations. Lactic acid WNL. Though it can all be attributed to the patient' s PE, the CBC also showed a left shift with bandemia, and given that she was recently hospitalized, she was treated for hospital-acquired pneumonia with IV Aztreonam (since PCN allergic) and IV vancomycin. Transitioned to PO Levaquin ( will have 10 total days of antibiotics as of today when combining with first admission) - Currently afebrile and hemodynamically stable - Blood cultures negative - low grade temp overnight. Check CXR. - DC levaquin tomorrow (3) Asthma Status: Chronic Plan: Patient recently admitted from 11/12-11/15 with exacerbation; was discharged on Levaquin and Prednisone. - DuoNeb Q4H - Albuterol neb Q2H PRN - Continue home Symbicort - Supplemental O2 PRN - Avoiding steroids secondary to confusion and slight delirium (4) Anxiety Status: Chronic Plan: Patient extremely anxious which is likely a combination of her baseline anxiety, the PE, and steroids. - Psych consulted; Seroquel BID - Ativan 0.5 mg PO Q6H PRN - steroids DCed, as above. May need to decrease albuterol if continues to have uncontrolled anxiety. - Avoid overly sedating medications (5) Nutrition, metabolism, and development symptoms Status: Acute Plan: - Fluids: Tolerating PO - Electrolytes: WNL. Monitor and replete as needed - Nutrition: Regular diet - GI prophylaxis: Protonix 40 mg PO daily Patient had trazadone during last admission for insomnia. DC benadryl and start trazadone 25 mg HS. Chronic conditions: - Neuropathy: Continue gabapentin - HLD: Continue statin (Jarvis Miranda MD R3) Problem Qualifiers (1) Pulmonary emboli: Qualified Code: I26.99 - Other acute pulmonary embolism without acute cor pulmonale (2) Pneumonia: Qualified Code: J18.9 - Pneumonia of both lower lobes due to infectious organism (3) Asthma: Qualified Code: J45.20 - Mild intermittent asthma without complication Jarvis Miranda MD R3 Nov 21, 2016 10:33 Kirti Magallon MD Nov 23, 2016 15:01
[2016-11-21] MEDS ORDERED: OXYGENTANK NAS.CANULA (10:35)
--- NOTE | 2016-11-21 11:19 | RADRPT ---
EXAM DATE/TIME: 11/21/2016 09:52 [facility] COMPARISON: CHEST SINGLE AP, November 16, 2016, 10:33. INDICATIONS : Shortness of breath. MEDICAL HISTORY : None. SURGICAL HISTORY : None. ENCOUNTER: Initial ACUITY: 3 days PAIN SCORE: 0/10 LOCATION: Bilateral FINDINGS: The heart size is within normal limits. There some linear density seen at the right mid lung likely r elated to atelectasis, scarring and some thickening of the minor fissure. There is minimal increased density at the left base. Clips are seen in the right axillary region. CONCLUSION: 1. Mild left base atelectasis or consolidation. 2. Linear density at the right midlung representing either atelectasis, scarring and/or thickening of the minor fissure Low Hutson MD on November 21, 2016 at 11:15 Board Certified Radiologist. This report was verified electronically.
[2016-11-21] MEDS: oxyCODONE/ACETAMINOPHEN 5 MG/325 MG TAB PO PRN ×4 (12:01→23:57)
[2016-11-21] MEDS: RESP: ALBUTEROL 2.5 MG/IPRATROPIUM 0.5 MG NEB (SCH) NEB ×3 (13:42→21:41)
[2016-11-21] MEDS ORDERED: traZODone HCL 50 MG TAB PO SCH ×2 (21:00)
[2016-11-21] MEDS: LORazepam 0.5 MG TAB PO PRN (23:57)
[2016-11-22] VITALS (9 sets, daily range): BP systolic 93–147; BP diastolic 70–108; PULSE 102–117; RESP 12–24; TEMP 96.9–99.9; O2SAT 91–98
[2016-11-22] MEDS: oxyCODONE/ACETAMINOPHEN 5 MG/325 MG TAB PO PRN ×3 (05:15→16:27)
[2016-11-22] MEDS: RESP: ALBUTEROL 2.5 MG/3 ML NEB (PRN) NEB ×2 (05:31→17:45)
[2016-11-22] MEDS: RESP: ALBUTEROL 2.5 MG/IPRATROPIUM 0.5 MG NEB (SCH) NEB ×3 (08:13→20:26)
[2016-11-22 08:29] LABS: AUTOMATED NEUTROPHIL # 12.9 TH/MM3 (1.8-7.7); BASOPHIL # 0.1 TH/MM3 (0-0.2); BASOPHIL % 0.5 % (0.0-2.0); EOSINOPHIL # 0.3 TH/MM3 (0-0.4); EOSINOPHIL % 1.5 % (0.0-4.0); HEMATOCRIT 35.3 % (35.0-46.0); HEMO FLAGS DIFF FINAL; LYMPH % 14.6 % (9.0-44.0); LYMPHOCYTE # 2.4 TH/MM3 (1.0-4.8); MEAN CELL VOLUME 86.9 FL (80.0-100.0); MEAN CORPUSCULAR HEMOGLOBIN 27.5 PG (27.0-34.0); MEAN CORPUSCULAR HGB CONC 31.7 % (32.0-36.0); MONO % 4.8 % (0.0-8.0); NEUT % 78.6 % (16.0-70.0); PLATELET COUNT 264 TH/MM3 (150-450); RED BLOOD COUNT 4.05 MIL/MM3 (4.00-5.30); RED CELL DISTRIBUTION WIDTH 17.5 % (11.6-17.2); WHITE BLOOD COUNT 16.5 TH/MM3 (4.0-11.0)
[2016-11-22 08:47] LABS: POTASSIUM 5.2 MEQ/L (3.5-5.1)
[2016-11-22] MEDS: GABAPENTIN 400 MG CAP PO SCH (08:56)
[2016-11-22] MEDS: LEVOFLOXACIN 750 MG TAB PO SCH (08:57)
[2016-11-22] MEDS: PANTOPRAZOLE SOD 40 MG DELAYED RELEASE TAB PO SCH (08:57)
[2016-11-22] MEDS: QUEtiapine FUMARATE 25 MG TAB PO SCH ×2 (08:57→21:32)
[2016-11-22] MEDS: guaiFENesin E.R. 600 MG TAB PO SCH ×2 (08:57→21:32)
[2016-11-22] MEDS: PRAVASTATIN SOD 80 MG TAB PO SCH (08:57)
[2016-11-22] MEDS: SODIUM CHLORIDE 0.9% FLUSH 5 ML FLUSH IV SCH ×2 (08:58→21:32)
[2016-11-22] MEDS: BUDESONIDE-FORMOTEROL 160/4.5 MCG INHALER INH SCH ×2 (09:01→21:00)
[2016-11-22] MEDS: RIVAROXABAN 15 MG TAB PO SCH ×2 (09:01→16:27)
[2016-11-22] MEDS ORDERED: MELATONIN 5 MG TAB PO PRN (10:45)
--- NOTE | 2016-11-22 10:46 | HHI.FPPN ---
Subjective Remarks Patient seen this morning. No acute events overnight. Vitals WNL. Patient's main complaints today are of worsening SOB and sleepiness. Per nursing, she has been walking around the halls without difficulty during the day. Patient states she does not feel ready for discharge. Denies any CP or F/C. (Jarvis Miranda MD R3) Objective Vitals Vital Signs Date Time Temp Pulse Resp B/P Pulse Ox O2 Delivery O2 Flow Rate FiO2 11/22/16 08:00 97.4 117 12 130/108 97 11/22/16 05:06 99.9 110 22 147/84 95 11/22/16 00:00 96.9 105 18 124/81 95 11/21/16 21:42 95 Nasal Cannula 2.00 11/21/16 20:00 96.5 98 16 108/75 95 11/21/16 15:53 97.0 116 20 127/73 95 11/21/16 12:00 98.1 110 20 117/69 95 I/O 11/21/16 11/21/16 11/21/16 11/22/16 11/22/16 11/22/16 07:00 15:00 23:00 07:00 15:00 23:00 Intake Total 720 ml 720 ml 480 ml Balance 720 ml 720 ml 480 ml Intake Oral 720 ml 720 ml 480 ml # Voids 3 2 2 (Jarvis Miranda MD R3) Result Diagram: 11/22/16 0700 11/22/16 0700 Objective Remarks GENERAL: Obese female laying in bed in [facility]. Obviously sleepy. Falling asleep intermittently during interview this AM with loud snoring. SKIN: Warm and dry without rash. Bruising over left wrist. HEENT: AT/NC. Pupils mildly dilated, equal and round and reactive to light. No scleral icterus or conjunctival injection. No nasal drainage. MMM. NECK: Supple without tender LAD. CARDIO: Tachycardic with a regular rhythm. No murmurs, rubs, or gallops appreciated. 2+ pedal pulses. RESP: Decreased air movement. Prolonged expiratory phase with more pronounced expiratory wheezing this AM. GI: Abdomen soft, nontender, nondistended. No guarding or rebound. EXTREM: No LE edema. No calf tenderness. Negative Homans sign bilaterally. No palpable cords or signs of thrombophlebitis. NEURO: Awake and alert. (Jarvis Miranda MD R3) A/P Assessment and Plan 56 year old female with asthma, anxiety, and chronic back pain was admitted for acute onset shortness of breath and hypoxia on 11/16. She was found to have ddfekzvm-vi-uenu probability V/Q scan and was placed on a heparin drip which she has since been transitioned to Xarelto since her insurance covers it without copay. Initially on arrival, given leukocytosis, tachycardia, and chest x-ray finding of mild bibasilar consolidations, she was started on IV antibiotics to cover for hospital acquired pneumonia since she was hospitalized from 11/12-11/15; she was transitioned to PO Levaquin and completed 10 days antibiotic therapy yesterday. She failed walking O2 test yesterday. Discharge Planning Patient still c/o significant dyspnea and has O2 requirement. Based on walking O2 assessment yesterday, should go home on O2. Spoke with CM regarding dispo to SNF for cardiopulmonary rehab today, will follow up with them in the afternoon. PT seeing patient and has recommended HH +/- PT. Will discuss with Dr. Magallon (Jarvis Miranda MD R3) Attending Attestation Patient seen and examined. Case reviewed and discussed with the resident team. Agree with plan of care as discussed with me and documented in the resident note. will cut seroquel to qhs only and may need to decrease more sedating meds ( Kirti Magallon MD) Problem List: (1) Pulmonary emboli Status: Acute Plan: Patient presenting with acute onset shortness of breath, anxiety, and hypoxia. Arrived to the ER on BiPAP and once removed O2 sat went down to 81%, back up to 95% on 5L and now stable at 93-97% on 1L. Tachycardic is chronic and review of EMR/outpatient visits shows average heart rate in low 100s since at least 2013 but never quite as high as 123 during this ER visit. V/Q scan ordered in light of patient's JEY showing cjygvzhkvyqv-us-vqjb probability for PE with numerous small to moderate sized peripheral foci. No symptoms of DVT on exam and patient was ambulating regularly and given prophylactic anticoagulation during recent hospitalization. History of breast cancer but no known current malignancy. Well's score is 2.5 (hemoptysis + tachycardia). - Remains hemodynamically stable - Started on Xarelto 15 mg PO BID with meals (x 21 days then 20 mg daily). Patient will need 6 months of anticoagulation - Supplemental O2 PRN - Failed O2 home walk test. Will speak with CM regarding order for home O2. Repeat walk test before discharge. - Morphine for pleuritic chest pain 2 mg IV Q3H (hold for sedation) (2) Pneumonia Status: Acute Plan: Bibasilar consolidation with leukocytosis on 11/16. Repeat CXR 11/22 shows likely scarring v. atelectasis at fissures. - Currently afebrile and hemodynamically stable - Blood cultures negative -WBC up to 16 today. Low grade temp 11/20. Check UA. -DC levaquin today (10 days total antibiotic therapy) (3) Asthma Status: Chronic Plan: Patient recently admitted from 11/12-11/15 with exacerbation; was discharged on Levaquin and Prednisone. Peak flows <50% of predicted (377 L/m). - re-check peak flow - DuoNeb Q4H - Albuterol neb Q2H PRN - She is on low dose (2 puff) symbicort. I do not believe this is adequately controlling sxs at this time. Would prefer high-dosed, nebulized steroid at this time during acute exacerbation. Will start on pumicort 2mg BID neb. - Supplemental O2 PRN - Avoiding systemic steroids secondary to confusion and slight delirium (4) Anxiety Status: Chronic Plan: Patient extremely anxious which is likely a combination of her baseline anxiety, the PE, and steroids. - Psych consulted; Seroquel BID - Ativan 0.5 mg PO Q6H PRN - steroids DCed, as above. May need to decrease albuterol if continues to have uncontrolled anxiety. - Avoid overly sedating medications (5) Nutrition, metabolism, and development symptoms Status: Acute Plan: - Fluids: Tolerating PO - Electrolytes: WNL. Monitor and replete as needed - Nutrition: Regular diet - GI prophylaxis: Protonix 40 mg PO daily Appears over-sedated with trazadone. Will DC at this time. Start on melatonin for sleep. Chronic conditions: - Neuropathy: Continue gabapentin - HLD: Continue statin (Jarvis Miranda MD R3) Problem Qualifiers (1) Pulmonary emboli: Qualified Code: I26.99 - Other acute pulmonary embolism without acute cor pulmonale (2) Pneumonia: Qualified Code: J18.9 - Pneumonia of both lower lobes due to infectious organism (3) Asthma: Qualified Code: J45.20 - Mild intermittent asthma without complication Jarvis Miranda MD R3 Nov 22, 2016 10:46 Kirti Magallon MD Nov 23, 2016 15:02
[2016-11-22] MEDS ORDERED: RESP: BUDESONIDE 0.5 MG/2 ML NEB NEB SCH ×2 (11:45→21:00)
[2016-11-22 17:18] LABS: BACTERIA, URINE RARE /hpf; BLOOD, URINE NEG (NEG); COMMENT (UR) CULT NOT INDICATED; CULTURE IF INDICATED CULT NOT INDICATED; GLUCOSE,URINE NEG (NEG); KETONE, URINE NEG (NEG); NITRITE,URINE NEG (NEG); PH, URINE 6.5 (5.0-8.5); SQUAMOUS EPITHELIAL CELL URINE 1 /hpf (0-5); URINE COLOR YELLOW (YELLW/STRAW)
--- NOTE | 2016-11-22 19:30 | RADRPT ---
EXAM DATE/TIME: 11/22/2016 17:49 [facility] COMPARISON: CHEST SINGLE AP, November 21, 2016, 9:52. INDICATIONS : Shortness of breath, chest pain, congestion. MEDICAL HISTORY : Carcinoma, breast. Diabetes mellitus type II. Chronic obstructive pulmonary disease. Smoker. Athm a. SURGICAL HISTORY : None. ENCOUNTER: Subsequent ACUITY: 3 days PAIN SCORE: 10/10 LOCATION: Bilateral chest FINDINGS: A single view of the chest demonstrates the lungs to be symmetrically aerated without evidence of mas s, infiltrate or effusion. The cardiomediastinal contours are unremarkable. Osseous structures are intact. There is mild motion artifact. CONCLUSION: No acute disease. Greg Rivera MD on November 22, 2016 at 19:28 Board Certified Radiologist. This report was verified electronically.
[2016-11-22] MEDS: GABAPENTIN 300 MG CAP PO SCH (21:32)
[2016-11-23] VITALS (8 sets, daily range): BP systolic 98–150; BP diastolic 61–90; PULSE 99–130; RESP 16–20; TEMP 97.1–99.7; O2SAT 92–97
[2016-11-23] MEDS: oxyCODONE/ACETAMINOPHEN 5 MG/325 MG TAB PO PRN ×2 (01:43→22:05)
[2016-11-23 08:20] LABS: AUTOMATED NEUTROPHIL # 9.7 TH/MM3 (1.8-7.7); BASOPHIL % 0.3 % (0.0-2.0); EOSINOPHIL # 0.2 TH/MM3 (0-0.4); EOSINOPHIL % 1.3 % (0.0-4.0); HEMATOCRIT 30.4 % (35.0-46.0); HEMO FLAGS DIFF FINAL; LYMPH % 13.5 % (9.0-44.0); LYMPHOCYTE # 1.6 TH/MM3 (1.0-4.8); MEAN CELL VOLUME 86.5 FL (80.0-100.0); MEAN CORPUSCULAR HEMOGLOBIN 28.3 PG (27.0-34.0); MEAN CORPUSCULAR HGB CONC 32.7 % (32.0-36.0); MONO % 4.6 % (0.0-8.0); NEUT % 80.3 % (16.0-70.0); PLATELET COUNT 214 TH/MM3 (150-450); RED BLOOD COUNT 3.52 MIL/MM3 (4.00-5.30); RED CELL DISTRIBUTION WIDTH 16.9 % (11.6-17.2)
[2016-11-23 08:24] LABS: BICARBONATE 32.4 MEQ/L (21.0-32.0); POTASSIUM 4.6 MEQ/L (3.5-5.1)
[2016-11-23] MEDS: RESP: ALBUTEROL 2.5 MG/IPRATROPIUM 0.5 MG NEB (SCH) NEB ×3 (09:14→19:06)
[2016-11-23] MEDS: guaiFENesin E.R. 600 MG TAB PO SCH ×2 (10:32→22:04)
[2016-11-23] MEDS: PANTOPRAZOLE SOD 40 MG DELAYED RELEASE TAB PO SCH (10:32)
[2016-11-23] MEDS: PRAVASTATIN SOD 80 MG TAB PO SCH (10:32)
[2016-11-23] MEDS: BUDESONIDE-FORMOTEROL 160/4.5 MCG INHALER INH SCH (10:40)
[2016-11-23] MEDS: RIVAROXABAN 15 MG TAB PO SCH ×2 (10:40→16:30)
[2016-11-23] MEDS: SODIUM CHLORIDE 0.9% FLUSH 5 ML FLUSH IV SCH (10:40)
--- NOTE | 2016-11-23 13:58 | HHI.FPPN ---
Subjective Remarks Patient seen this morning. Did have episode of hypoxia overnight. Resident team was called and assessed the patient. CXR showed no acute change. Sputum culture was obtained and has shown growth of normal respiratory george. Yomaira has had O2 requirement of 2-4L during this admission and apparently was taking NC off during the night. This was determined to be the most likely reason for hypoxia overnight. On review of EMR, she continues to be tachycardic with rate mostly in the 100s, but going as high as the 130s. Yomaira c/o continued SOB today, essentially unchanged from yesterday. Feels less confused this morning. C/o continued lower back pain, which is a chronic issue for her. This has been adequately relieved with hydrocodone. Yomaira has no other complaints today. Denies any F/C. (Jarvis Miranda MD R3) Objective Vitals Vital Signs Date Time Temp Pulse Resp B/P Pulse Ox O2 Delivery O2 Flow Rate FiO2 11/23/16 12:00 98.0 115 16 110/80 94 11/23/16 09:15 94 Nasal Cannula 4.00 11/23/16 08:00 98.5 130 18 98/76 92 11/23/16 05:45 99.7 118 20 150/78 95 11/23/16 00:00 97.4 107 18 109/61 11/22/16 21:30 102 110/77 11/22/16 21:15 97.4 106 18 97/71 98 11/22/16 20:57 94 Nasal Cannula 4.00 11/22/16 16:30 97.1 112 24 114/83 93 I/O 11/22/16 11/22/16 11/22/16 11/23/16 11/23/16 11/23/16 07:00 15:00 23:00 07:00 15:00 23:00 Intake Total 480 ml 1680 ml 480 ml Balance 480 ml 1680 ml 480 ml Intake Oral 480 ml 1680 ml 480 ml # Voids 2 2 9 2 # Bowel Movements 0 (Jarvis Miranda MD R3) Result Diagram: 11/23/16 0638 11/23/16 0638 Objective Remarks GENERAL: Obese female laying in bed in NAD. Obviously confused this AM , but less sleepy. SKIN: Warm and dry without rash. Bruising over left wrist. HEENT: AT/NC. Pupils mildly dilated, equal and round and reactive to light. No scleral icterus or conjunctival injection. No nasal drainage. MMM. NECK: Supple without tender LAD. CARDIO: Tachycardic with a regular rhythm. No murmurs, rubs, or gallops appreciated. 2+ pedal pulses. RESP: Decreased air movement. Prolonged expiratory phase with more pronounced expiratory wheezing this AM. GI: Abdomen soft, nontender, nondistended. No guarding or rebound. EXTREM: No LE edema. No calf tenderness. Negative Homans sign bilaterally. No palpable cords or signs of thrombophlebitis. NEURO: Awake and alert. (Jarvis Miranda MD R3) A/P Assessment and Plan 56 year old female with asthma, anxiety, and chronic back pain was admitted for acute onset shortness of breath and hypoxia on 11/16. She was found to have qskninrf-te-jidw probability V/Q scan and was placed on a heparin drip which she has since been transitioned to Xarelto since her insurance covers it without copay. Initially on arrival, given leukocytosis, tachycardia, and chest x-ray finding of mild bibasilar consolidations, she was started on IV antibiotics to cover for hospital acquired pneumonia since she was hospitalized from 11/12-11/15; she was transitioned to PO Levaquin and completed 10 days antibiotic therapy 11/22. Failed walking O2 test this admission. Discharge Planning Patient still c/o significant dyspnea and has O2 requirement. Based on walking O2 assessment yesterday, should go home on O2. Spoke with CM regarding dispo to SNF for cardiopulmonary rehab today, will follow up with them in the afternoon. PT seeing patient and has recommended HH +/- PT. Will discuss with Dr. Magallon (Jarvis Miranda MD R3) Attending Attestation Patient seen and examined. Case reviewed and discussed with the resident team. Agree with plan of care as discussed with me and documented in the resident note. she is slow to recover and appreciate Pulmonary evaluation. agree with decreasing her sedating drugs (Kirti Magallon MD) Problem List: (1) Pulmonary emboli Status: Acute Plan: Patient presenting with acute onset shortness of breath, anxiety, and hypoxia. Arrived to the ER on BiPAP and once removed O2 sat went down to 81%, back up to 95% on 5L and now stable at 93-97% on 1L. Tachycardic is chronic and review of EMR/outpatient visits shows average heart rate in low 100s since at least 2013 but never quite as high as 123 during this ER visit. V/Q scan ordered in light of patient's JEY showing eduigeeypbml-[id number]-kgca probability for PE with numerous small to moderate sized peripheral foci. No symptoms of DVT on exam and patient was ambulating regularly and given prophylactic anticoagulation during recent hospitalization. History of breast cancer but no known current malignancy. Well's score is 2.5 (hemoptysis + tachycardia). - Remains hemodynamically stable - Has some low pressures, especially at night and numerous small emboli. Will check echocardiogram. - Started on Xarelto 15 mg PO BID with meals (x 21 days then 20 mg daily). Patient will need 6 months of anticoagulation - Supplemental O2 PRN - Failed O2 home walk test. Spoke with CM regarding order for home O2. Repeat walk test before discharge. - Morphine for pleuritic chest pain 2 mg IV Q3H (hold for sedation) (2) Asthma Status: Chronic Plan: Patient recently admitted from 11/12-11/15 with exacerbation; was discharged on Levaquin and Prednisone. Peak flows improving. Now - re-check peak flow - DuoNeb Q4H - Albuterol neb Q2H PRN - Started on Pulmicort 2mg BID, but order cancelled overnight. I think she would benefit from treatment with high-dose steroids. Will check with pharmacy. - Supplemental O2 PRN - Avoiding systemic steroids secondary to confusion and slight delirium - Patient still with O2 requirement and ? sleep apnea sxs. Will consult pulm. (3) Anxiety Status: Chronic Plan: Patient extremely anxious which is likely a combination of her baseline anxiety, the PE, and steroids. - Psych consulted. Appreciate recs. - Change seroquel to 25 mg HS, given concern for over sedation. - Change frequency of pain meds to q6 - Ativan 0.5 mg PO Q6H PRN - steroids DCed, as above. May need to decrease albuterol if continues to have uncontrolled anxiety. - has received several courses of PO steroids. Will check AM cortisol tomorrow. - Avoid overly sedating medications. (4) Chronic low back pain Status: Acute Plan: Chronic issue. C/o worsening pain this AM. -add lidocaine patches -add naprosyn for pain scale 1-5. Hydrocodone for pain scale 6-10/10, change frequency to q6. (5) Nutrition, metabolism, and development symptoms Status: Acute Plan: - Fluids: Tolerating PO - Electrolytes: WNL. Monitor and replete as needed - Nutrition: Regular diet - GI prophylaxis: Protonix 40 mg PO daily - melatonin for sleep Chronic conditions: - Neuropathy: Continue gabapentin - HLD: Continue statin (Jarvis Miranda MD R3) Problem Qualifiers (1) Pulmonary emboli: Qualified Code: I26.99 - Other acute pulmonary embolism without acute cor pulmonale (2) Asthma: Qualified Code: J45.20 - Mild intermittent asthma without complication (3) Chronic low back pain: Qualified Code: M54.5 - Chronic bilateral low back pain without sciatica Jarvis Miranda MD R3 Nov 23, 2016 13:58 Kirti Magallon MD Nov 23, 2016 15:04
[2016-11-23] MEDS: IBUPROFEN 600 MG TAB PO PRN (14:08)
[2016-11-23] MEDS: LORazepam 0.5 MG TAB PO PRN ×2 (14:09→22:05)
[2016-11-23] MEDS ORDERED: LIDOCAINE HCL 5% PATCH TD SCH ×2 (15:00→16:00)
[2016-11-23] MEDS ORDERED: NAPROXEN 500 MG TAB PO PRN (16:00)
--- NOTE | 2016-11-23 17:07 | EC ---
Study Study Date:11/23/2016 STUDY CONCLUSIONS SUMMARY - Left ventricle: The cavity size was normal. Wall thickness was normal. Systolic function was normal. The estimated ejection fraction was 65%. Wall motion was normal; there were no regional wall motion abnormalities. - Right ventricle: The cavity size was mildly dilated. Wall thickness was normal. - Tricuspid valve: Mild regurgitation. If LV function is below 40, please consider prescribing an ACEI or ARB or document rationale for non-use. PROCEDURE DATA STUDY STATUS: Elective. Procedure: Transthoracic echocardiography. Image quality was good. Scanning was performed from the parasternal, apical, and subcostal acoustic windows. Study completion: The patient tolerated the procedure well. Transthoracic echocardiography. M-mode, complete 2D, complete spectral Doppler, and color Doppler. Height: Height: 60in. Weight: Weight: 206.6lb. Body mass index: BMI: 40.4kg/m^2. Body surface area: BSA: 1.89m^2. Patient status: Inpatient. CARDIAC ANATOMY LEFT VENTRICLE: The cavity size was normal. Wall thickness was normal. Systolic function was normal. The estimated ejection fraction was 65%. Wall motion was normal; there were no regional wall motion abnormalities. AORTIC VALVE: Trileaflet; normal thickness leaflets. Doppler: Transvalvular velocity was within the normal range. There was no stenosis. No regurgitation. Peak gradient: 13mm Hg (S). AORTA: Aortic root: The aortic root was normal in size. MITRAL VALVE: Structurally normal valve. Doppler: Transvalvular velocity was within the normal range. There was no evidence for stenosis. No regurgitation. Valve area by pressure half-time: 4.15cm^2. Indexed valve area by pressure half-time: 2.2cm^2/m^2. Peak gradient: 3mm Hg (D). LEFT ATRIUM: The atrium was normal in size. RIGHT VENTRICLE: The cavity size was mildly dilated. Wall thickness was normal. PULMONIC VALVE: Doppler: Transvalvular velocity was within the normal range. There was no evidence for stenosis. No regurgitation. TRICUSPID VALVE: Structurally normal valve. Doppler: Transvalvular velocity was within the normal range. Mild regurgitation. PULMONARY ARTERY: The main pulmonary artery was normal-sized. Systolic pressure was within the normal range. RIGHT ATRIUM: The atrium was normal in size. PERICARDIUM: There was no pericardial effusion. SYSTEMIC VEINS: Inferior vena cava: The vessel was normal in size. Patient weight: 206.6lb _Ejection fraction:_ 65-75% _Fractional shortening:_ 32% up to 5Kg 5-11.5Kg 11.6-22.9Kg 23-45Kg 45-57Kg Aortic Root 7-13 <17 13-22 17-27 17-27 LA diam 6-13 <23 24-38 33-47 37-40 RVID 10-17 7-15 7-15 7-18 8-17 LVIDd 12-22 <32 24-38 33-47 37-40 LVPW 2-4 3-6 5-7 6-8 7-8 IVS 2-4 3-6 5-7 6-8 7-8 BASIC MEASUREMENTS ADULT NORMAL Left ventricle LV internal dimension, ED, chordal *40.1 mm 43-52 level, PLAX LV internal dimension, ES, chordal 25.1 mm 23-38 level, PLAX Fractional shortening, chordal level, 37 % >29 PLAX LV posterior wall thickness, ED 9.32 mm IVS/LVPW ratio, ED 0.97 <1.3 Ventricular septum Septal thickness, ED 9.06 mm Aortic valve Leaflet separation 19 mm 15-26 Left atrium Anterior-posterior dimension 29 mm Anterior-posterior dimension index 1.53 cm/m^2 <2.2 BASIC MEASUREMENTS ADULT NORMAL Aortic valve Leaflet separation 19 mm 15-26 Aorta Root diameter, ED *39 mm 20-37 DOPPLER MEASUREMENTS ADULT NORMAL Aortic valve Peak velocity, S 182 cm/s Peak gradient, S 13 mm Hg Mitral valve Peak E-wave velocity 84.9 cm/s Peak A-wave velocity 76.5 cm/s Pressure half-time 53 ms Peak gradient, D 3 mm Hg Peak E/A ratio 1.1 Valve area, pressure half-time 4.15 cm^2 Valve area index, pressure half-time 2.2 cm^2/m^2 Pulmonic valve Peak velocity, S 118 cm/s LEGEND: Mean values are shown as u=mean value. Asterisk (*) hamilton values outside specified normal range. Prepared and signed by Dontae Marroquin [id number]
[2016-11-23] MEDS ORDERED: oxyCODONE/ACETAMINOPHEN 5 MG/325 MG TAB PO PRN (18:00)
[2016-11-23] MEDS: RESP: BUDESONIDE 0.5 MG/2 ML NEB NEB SCH (19:06)
--- NOTE | 2016-11-23 19:45 | EKG ---
Date Performed: 11/23/2016 Time Performed: 06:07:55 PTAGE: 56 years EKG: SINUS TACHYCARDIA ABNORMAL RHYTHM ECG PREVIOUS TRACING : 11/16/2016 17.53 Compared to prior tracing no significant change DOCTOR: Dontae Marroquin Interpretating Date/Time 11/23/2016 19:44:19
[2016-11-23] MEDS ORDERED: MONTELUKAST SODIUM 10 MG TAB PO SCH (21:00)
[2016-11-23] MEDS: QUEtiapine FUMARATE 25 MG TAB PO SCH (22:04)
[2016-11-23] MEDS: GABAPENTIN 300 MG CAP PO SCH (22:04)
--- NOTE | 2016-11-23 22:31 | MB ---
cc: NATHAN KAHN DATE OF CONSULTATION 11/23/2016 REQUESTING PHYSICIAN Jarvis Miranda REASON FOR CONSULTATION Evaluate for shortness breath and hypoxia. HISTORY OF THE PRESENT ILLNESS Ms. Caldwell is a 56-year-old morbidly obese female with longstanding history of bronchial asthma. She uses nebulizer treatment and Asmanex and Symbicort at home. She was brought to the hospital with worsening of her shortness of breath. She was found to be hypoxic. She took multiple albuterol treatments, did not get better. She had a workup done in the hospital. IMAGING She had a V/Q SCAN done which shows intermediate to high probability for pulmonary embolism. Her chest x-ray shows no acute process. LABORATORY DATA CBC showed a WBC count 12,000, hemoglobin 9.9, hematocrit 30.4 MCA 86, platelet count 214. Sodium 134, potassium 4.6, chloride 92, CO2 34, BUN of 15, creatinine 1.03. PAST MEDICAL HISTORY Significant for: 1. A history of bronchial asthma. 2. CA of the breast status post lumpectomy. She also has chemotherapy and radiation therapy done in [place]. 3. History of asthma. 4. Hyperlipidemia. 5. History of Bassett palsy. 6. History of hernia surgery. 7. Appendectomy. MEDICATIONS She is currently takin. Singulair 10 milligrams daily. 2. Oxycodone for pain. 3. Naproxen for pain. 4. Seroquel 25 mg at nighttime. 5. Neurontin 300 mg at nighttime. 6. Lorazepam as needed. 7. Albuterol/Atrovent nebulizer treatment. 8. Xarelto 15 mg twice a day. 9. Protonix 40 mg a day. 10. Albuterol nebulizer treatment. ALLERGIES PENICILLIN, SULFA, TETRACYCLINE, VIBRAMYCIN. SOCIAL HISTORY She is single. Denies any history of smoking. No alcohol use. 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 REVIEW OF SYSTEMS She walks short distance. No prior history of DVT or pulmonary embolism. No bleeding from any site. No seizure, stroke or epilepsy. PHYSICAL EXAMINATION GENERAL: Morbidly obese female, mild short of breath. Not in any acute distress. VITAL SIGNS: Blood pressure 116/90, heart rate 99, respirations 18, temperature 97.1. Oxygen saturation 97%. HEENT: Pupils are equal and reactive to light. Oral mucosa, nasal mucosa normal. NECK: Supple. JVP not raised. CHEST: Air entry equal bilaterally. No rhonchi. CARDIOVASCULAR: S1, S2 normal. ABDOMEN: Soft, nondistended. Bowel sounds are present. EXTREMITIES: No edema. CENTRAL NERVOUS SYSTEM: Alert and oriented times three. No focal deficit. IMPRESSION 1. Bronchial asthma with exacerbation. 2. Hypoxia. 3. Intermittent to high possibility of V/Q scan for pulmonary embolism. 4. History of cancer of the breast. PLAN We will give her aerosol treatment with albuterol and Atrovent. I will give her a short course of steroids with Solu-Medrol 40 mg q.6-hour. She is on Xarelto. I discussed with her that we need to confirm the diagnosis of pulmonary embolism before committing her to terminal clerk anticoagulation treatment. She understands and want to proceed with it. We will get a CT scan of the chest to definitely rule in or rule out pulmonary embolism. Supplement her oxygen. Once she gets better she will need pulmonary function study. Further treatment will depend on the course in the hospital. Thank you Dr. Miranda for this consultation. MD ARLENE Elliott/WHITNEY /8:55 PM /10:12 PM
[2016-11-24 01:00] VITALS: BP 99/56; PULSE 90; RESP 18; TEMP 96.8; O2SAT 93
[2016-11-24] MEDS ORDERED: IOHEXOL 350 MG/ML 10 ML VIAL (for RAD DIAG) IV ONE (01:31)
[2016-11-24] MEDS: oxyCODONE/ACETAMINOPHEN 5 MG/325 MG TAB PO PRN (01:43)
[2016-11-24] MEDS: SODIUM CHLORIDE 0.9% FLUSH 5 ML FLUSH IV SCH ×2 (01:44→09:00)
[2016-11-24] MEDS: methylPREDNISolone SOD SUCC 40 MG/1 ML VIAL IV PUSH SCH ×3 (01:44→06:00)
--- NOTE | 2016-11-24 01:56 | RADRPT ---
EXAM DATE/TIME: 11/24/2016 01:16 [facility] COMPARISON: CT PULMONARY ANGIOGRAM, June 03, 2016, 13:33. INDICATIONS : Shortness of breath. Evaluate for emboli. IV CONTRAST: 70 cc Omnipaque 350 (iohexol) IV RADIATION DOSE: 23.39 CTDIvol (mGy) MEDICAL HISTORY : Cardiovascular disease. Chronic obstructive pulmonary disease. Diabetes mellitus type 2.Breast Ca GE RD SURGICAL HISTORY : Hernia ENCOUNTER: Initial ACUITY: 1 week PAIN SCALE: 0/10 LOCATION: chest TECHNIQUE: Volumetric scanning of the chest was performed using a pulmonary embolism protocol MIP images were re constructed. Using automated exposure control and adjustment of the mA and/or kV according to patien t size, radiation dose was kept as low as reasonably achievable to obtain optimal diagnostic quality images. FINDINGS: PULMONARY ARTERIES: No filling defects are seen in the pulmonary arteries through the segmental level. LUNGS: Scattered areas of bronchial thickening, bronchiectasis tree in bud opacity, groundglass opacity, and patchy consolidation in the right upper lobe. Similar finding is seen in the right lower lobe. Mild patchy groundglass opacity in the central left lung. PLEURAE: There is no pleural thickening or pleural effusion. MEDIASTINUM: Coronary artery calcifications. Mildly prominent 1.2 cm precarinal lymph node. Likely reactive. MUSCULOSKELETAL: Within normal limits for patient age. MISCELLANEOUS: The visualized upper abdominal organs demonstrate no acute abnormality. CONCLUSION: 1. No evidence of pulmonary embolus. Mild bronchiectasis and scattered ground glass opacity, tree in bud opacity, and patchy consolidation in the lungs indicating nonspecific inflammatory change. 2. Previously noted nodular density in the right upper lung on the prior study is not seen. Loyd Tesfaye MD on November 24, 2016 at 1:42 Board Certified Radiologist. This report was verified electronically.
[2016-11-24] MEDS ORDERED: REMOVE OLD LIDOCAINE PATCH TD SCH (04:00)
[2016-11-24 05:45] VITALS: BP 116/77; PULSE 77; RESP 18; TEMP 97.2; O2SAT 95
[2016-11-24] MEDS: RESP: ALBUTEROL 2.5 MG/3 ML NEB (PRN) NEB (06:24)
[2016-11-24 08:14] LABS: BASOPHIL % 0.1 % (0.0-2.0); EOSINOPHIL % 0.2 % (0.0-4.0); HEMATOCRIT 32.8 % (35.0-46.0); HEMO FLAGS DIFF FINAL; LYMPH % 8.6 % (9.0-44.0); LYMPHOCYTE # 0.8 TH/MM3 (1.0-4.8); MEAN CELL VOLUME 85.9 FL (80.0-100.0); MEAN CORPUSCULAR HEMOGLOBIN 29.2 PG (27.0-34.0); MONO % 2.1 % (0.0-8.0); PLATELET COUNT 233 TH/MM3 (150-450); RED BLOOD COUNT 3.81 MIL/MM3 (4.00-5.30)
--- NOTE | 2016-11-24 08:31 | HHI.FPPN ---
Subjective Remarks Patient seen this morning. There were no acute events overnight. Vitals this morning are WNL. Yomaira reports breathing is significantly improved compared to yesterday. She was seen by pulmonology yesterday. They have ordered a CT scan , which showed no evidence of PE. They have added IV steroids to her regimen. Her only complaint this AM is of moderate low back pain. This is worse compared to her baseline. Denies any F/C, CP, or N/V. (Jarvis Miranda MD R3) Objective Vitals Vital Signs Date Time Temp Pulse Resp B/P Pulse Ox O2 Delivery O2 Flow Rate FiO2 11/24/16 05:45 97.2 77 18 116/77 95 11/24/16 02:46 18 11/24/16 01:00 96.8 90 18 99/56 93 11/23/16 20:00 97.1 99 18 116/90 97 11/23/16 19:08 96 Nasal Cannula 4.00 11/23/16 16:00 97.7 100 16 124/75 94 11/23/16 12:00 98.0 115 16 110/80 94 11/23/16 09:15 94 Nasal Cannula 4.00 I/O 11/23/16 11/23/16 11/23/16 11/24/16 11/24/16 11/24/16 07:00 15:00 23:00 07:00 15:00 23:00 Intake Total 480 ml 1200 ml 600 ml Balance 480 ml 1200 ml 600 ml Intake Oral 480 ml 1200 ml 600 ml # Voids 2 3 3 2 # Bowel Movements 1 (Jarvis Miranda MD R3) Result Diagram: 11/23/1638 11/23/16637 Objective Remarks GENERAL: Obese female laying in bed in [facility]. SKIN: Warm and dry without rash. Bruising over left wrist. HEENT: AT/NC. Pupils mildly dilated, equal and round and reactive to light. No scleral icterus or conjunctival injection. No nasal drainage. MMM. NECK: Supple without tender LAD. CARDIO: Tachycardic with a regular rhythm. No murmurs, rubs, or gallops appreciated. 2+ pedal pulses. RESP: Increased air movement compared to prior exam. Diffuse expiratory wheezing. Less pronounced compared to previous exam. GI: Abdomen soft, nontender, nondistended. No guarding or rebound. EXTREM: No LE edema. No calf tenderness. Negative Homans sign bilaterally. No palpable cords or signs of thrombophlebitis. NEURO: Awake and alert. Confusion appears resolved. Patient states mood is "good ". (Jarvis Miranda MD R3) A/P Assessment and Plan 56 year old female with asthma, anxiety, and chronic back pain was admitted for acute onset shortness of breath and hypoxia on 11/16. She was found to have lokriffz-es-gots probability V/Q scan and was placed on a heparin drip which she has since been transitioned to Xarelto since her insurance covers it without copay. Initially on arrival, given leukocytosis, tachycardia, and chest x-ray finding of mild bibasilar consolidations, she was started on IV antibiotics to cover for hospital acquired pneumonia since she was hospitalized from 11/12-11/15; she was transitioned to PO Levaquin and completed 10 days antibiotic therapy 11/22. Failed walking O2 test this admission. She has CTA last night, which showed non-specific inflammatory change without evidence of PE. She now has improving respiratory status on IV steroids. Discharge Planning Plan for DC to rehab today. She has failed walking O2 test this admission, which we will repeat today. With negative CTA, will discuss need for further anticoagulation with pulmonary. Will discuss with Dr. Rodriguez Addendum: Discussed with pulmonology (Dr. Onofre). Check LE dopplers and if negative DC anticoagulation, given negative CTA. (Jarvis Miranda MD R3) Attending Attestation Pt. examined and case discussed with resident physicians I have read the above note and agree with the assessment/plan as discussed with me I was involved in all medical decision making for this patient Kemar Rodriguez MD (Kemar Rodriguez MD) Problem List: (1) Pulmonary emboli Status: Acute Plan: Presented with tachycardia and low O2 sats. V/Q scan suspicious for PE. CTA last night shows diffuse, inflammatory change without evidence of PE. - Remains hemodynamically stable - Echocardiogram negative - Started on Xarelto 15 mg PO BID with meals (x 21 days then 20 mg daily). Discuss need for further anticoagulation with pulm today. - Supplemental O2 PRN - Repeat O2 walk test today. - Morphine for pleuritic chest pain 2 mg IV Q3H (hold for sedation) (2) Asthma Status: Chronic Plan: Respiratory status and peak flow readings improving. Now with subjective improvement in respiratory status on IV steroids. - DuoNeb Q4H - Albuterol neb Q2H PRN - Pulmicort respules 2mg BID - Supplemental O2 PRN - Solumedrol 40mg IV q6 - Pulmonary consulted. Appreciate their recs. (3) Anxiety Status: Chronic Plan: Patient extremely anxious which is likely a combination of her baseline anxiety, the PE, and steroids. - Psych consulted. Appreciate recs. - Seroquel 25 mg HS - Ativan 0.5 mg PO Q6H PRN - has received several courses of PO steroids. Waiting for AM cortisol today. - Avoid overly sedating medications. (4) Chronic low back pain Status: Acute Plan: Chronic issue. C/o worsening pain this AM. Doubt compression fracture, but she is at risk after receiving multiple rounds of steroids recently. -lidocaine patches -naprosyn for pain scale 1-5. Hydrocodone for pain scale 6-10/10. (5) Nutrition, metabolism, and development symptoms Status: Acute Plan: - Fluids: Tolerating PO - Electrolytes: WNL. Monitor and replete as needed - Nutrition: Regular diet - GI prophylaxis: Protonix 40 mg PO daily - melatonin for sleep Chronic conditions: - Neuropathy: Continue gabapentin - HLD: Continue statin (Jarvis Miranda MD R3) Problem Qualifiers (1) Pulmonary emboli: Qualified Code: I26.99 - Other acute pulmonary embolism without acute cor pulmonale (2) Asthma: Qualified Code: J45.20 - Mild intermittent asthma without complication (3) Chronic low back pain: Qualified Code: M54.5 - Chronic bilateral low back pain without sciatica Jarvis Miranda MD R3 Nov 24, 2016 08:31 Kemar Rodriguez MD Nov 24, 2016 15:40
[2016-11-24 08:36] VITALS: BP 115/74; PULSE 88; RESP 18; TEMP 97; O2SAT 92
[2016-11-24 08:43] LABS: BICARBONATE 34.4 MEQ/L (21.0-32.0); POTASSIUM 4.4 MEQ/L (3.5-5.1)
[2016-11-24] MEDS ORDERED: LEVOFLOXACIN 750 MG TAB PO SCH (09:00)
--- NOTE | 2016-11-24 09:23 | RADRPT ---
EXAM DATE/TIME: 11/24/2016 09:08 [facility] COMPARISON: No previous studies available for comparison. INDICATIONS : Low back pain. MEDICAL HISTORY : None. SURGICAL HISTORY : Fusion, lumbar. ENCOUNTER: Subsequent ACUITY: 1 day PAIN SCORE: 110 LOCATION: Bilateral lower back. FINDINGS: There are five non-rib bearing vertebral bodies. The vertebral bodies are in normal alignment withou t evidence of subluxation or scoliosis. There is disc space narrowing at the L4-L5 level. The remain ing disc spaces appear intact. Mild marginal osteophytes are seen. The posterior elements are intact without evidence of spondylolysis. The pedicles are intact. Bony mineralization is normal. No frac ture is identified. Contrast is seen in the bladder from prior CT. CONCLUSION: Disc space narrowing at the L4-L5 level. Low Hutson MD on November 24, 2016 at 9:18 Board Certified Radiologist. This report was verified electronically.
[2016-11-24] MEDS: RESP: ALBUTEROL 2.5 MG/IPRATROPIUM 0.5 MG NEB (SCH) NEB ×2 (09:50→13:39)
[2016-11-24] MEDS: RESP: BUDESONIDE 0.5 MG/2 ML NEB NEB SCH (09:51)
[2016-11-24 09:52] VITALS: O2SAT 90
[2016-11-24] MEDS: PRAVASTATIN SOD 80 MG TAB PO SCH (10:48)
[2016-11-24] MEDS: guaiFENesin E.R. 600 MG TAB PO SCH (10:48)
[2016-11-24] MEDS: RIVAROXABAN 15 MG TAB PO SCH (10:48)
[2016-11-24] MEDS: PANTOPRAZOLE SOD 40 MG DELAYED RELEASE TAB PO SCH (10:48)
--- NOTE | 2016-11-24 11:12 | RADRPT ---
EXAM DATE/TIME: 11/24/2016 10:08 [facility] COMPARISON: No previous studies available for comparison. INDICATIONS : Pulmonary embolism. MEDICAL HISTORY : Hypercholesterolemia. Carcinoma, breast. Arthritis. Dizziness. Numbness. COPD. Asthma. Pneumonia. Spu tricia production. Dyspnea. Hernia. Heartburn. GERD. Back pain. Diabetes. Anxiety. Claustrophobia. Chemo therapy. Radiation Therapy. SURGICAL HISTORY : Hemorrhoidectomy. Right breast lumpectomy. Hernia repair x2. ENCOUNTER: Initial ACUITY: 1 day PAIN SCORE: 0/10 LOCATION: Bilateral legs. TECHNIQUE: Venous ultrasound of the left and right leg was performed from the inguinal ligament to the proximal calf. Real-time, color Doppler and spectral tracing, compression and augmentation techniques were us ed. FINDINGS: RIGHT LEG: There is normal compressibility of the deep venous system from the inguinal region to the proximal ca lf. No echogenic clot is seen in the lumen of the common femoral, femoral, popliteal, and posterior tibial veins. There is a normal response of the venous system to proximal and distal augmentation an d respiration. LEFT LEG: There is normal compressibility of the deep venous system from the inguinal region to the proximal ca lf. No echogenic clot is seen in the lumen of the common femoral, femoral, popliteal, and posterior tibial veins. There is a normal response of the venous system to proximal and distal augmentation an d respiration. CONCLUSION: No DVT. Low Hutson MD on November 24, 2016 at 11:10 Board Certified Radiologist. This report was verified electronically.
[2016-11-24] MEDS ORDERED: PANT40TA3 PO (12:31)
[2016-11-24] MEDS ORDERED: IPRASOL NEB (12:31)
[2016-11-24] MEDS ORDERED: MELA1TAB22 PO (12:31)
[2016-11-24] MEDS ORDERED: NEUR300C PO (12:31)
[2016-11-24] MEDS ORDERED: QUET1TAB7 PO (12:31)
[2016-11-24] MEDS ORDERED: ALBU0.08 NEB (12:31)
[2016-11-24] MEDS ORDERED: OXYC1TAB63 PO (12:31)
[2016-11-24] MEDS ORDERED: PRED20 PO (12:31)
[2016-11-24] MEDS ORDERED: MUCI600T PO (12:31)
[2016-11-24] MEDS ORDERED: MONT10TA4 PO (12:31)
[2016-11-24] MEDS ORDERED: LORA-392 PO (12:31)
[2016-11-24] MEDS ORDERED: BUDE.5I NEB (12:31)
[2016-11-24] MEDS ORDERED: LIDO5DIS35 TD (12:31)
[2016-11-24 12:39] VITALS: BP 118/73; PULSE 108; RESP 18; TEMP 97.2; O2SAT 92
[2016-12-06] MEDS ORDERED: ALBUAER3 INH (10:01)
[2016-12-06] MEDS ORDERED: MONT10TA4 PO (10:01)
[2016-12-06] MEDS ORDERED: BUDE.5I NEB (10:01)
[2016-12-06] MEDS ORDERED: IPRASOL NEB (10:01)
[2016-12-06] MEDS ORDERED: OXYGENTANK NAS.CANULA (10:10)
[2016-12-06] MEDS ORDERED: NEBULIZER1 MI1 (11:55)
[2016-12-13] MEDS ORDERED: CYCL5TAB PO (12:20)
--- NOTE | 2016-12-14 11:05 | HHI.DS ---
Discharge Summary Admission Date Nov 16, 2016 at 12:50 Discharge Date: Dec 25, 2016 Admitting Diagnosis pneumonia, respiratory distress, altered mental status (1) Asthma Diagnosis: Principal Plan: Respiratory status and peak flow readings improving. Now with subjective improvement in respiratory status on IV steroids. - DuoNeb Q4H - Albuterol neb Q2H PRN - Pulmicort respules 2mg BID - Supplemental O2 PRN - Solumedrol 40mg IV q6 - Pulmonary consulted. Appreciate their recs. (2) Anxiety Diagnosis: Secondary Plan: Patient extremely anxious which is likely a combination of her baseline anxiety, the PE, and steroids. - Psych consulted. Appreciate recs. - Seroquel 25 mg HS - Ativan 0.5 mg PO Q6H PRN - has received several courses of PO steroids. Waiting for AM cortisol today. - Avoid overly sedating medications. (3) Chronic low back pain Diagnosis: Secondary Plan: Chronic issue. C/o worsening pain this AM. Doubt compression fracture, but she is at risk after receiving multiple rounds of steroids recently. -lidocaine patches -naprosyn for pain scale 1-5. Hydrocodone for pain scale 6-10/10. (4) Nutrition, metabolism, and development symptoms Diagnosis: Secondary Plan: - Fluids: Tolerating PO - Electrolytes: WNL. Monitor and replete as needed - Nutrition: Regular diet - GI prophylaxis: Protonix 40 mg PO daily - melatonin for sleep Chronic conditions: - Neuropathy: Continue gabapentin - HLD: Continue statin [facility] Pulmonology (Dr. Onofre) Psychiatry (Dr. Galvin) Brief History Ms Caldwell is a 56 year old female with asthma, chronic back pain, and anxiety who presented to the ER via [facility] for shortness of breath. The patient was discharged from the hospital yesterday afternoon after being admitted on 11/12 for asthma exacerbation. The patient reports initially at home she was feeling fine and walking up and down stairs and not requiring oxygen but later in the evening she had sudden onset shortness of breath despite several albuterol treatments; she became very anxious and called 911. She also endorses that she had one episode of hemoptysis at home as well. She arrived to the ER on BiPAP which was quickly taken off since she was not struggling to breathe. She endorsed chest pain when she took a deep breath in which was new for her. She states her symptoms are different than her typical asthma symptoms and she feels much worse than when she was just in the hospital. She expresses that she feels extremely anxious and wants something immediately for anxiety. She agreed to VQ scan after some ativan which was moderate to high probability of PE. Based on her acute clinical deterioration and hypoxia on arrival to the ED as well as a stable CXR, BNP and troponins, PE explains all her sxs. She also had hemoptysis which she has not experienced in the past. She had heparin overnight iv and is doing very well this am. She wants to walk around and go to another room as her breathing is much better than on admission. Korina took off her oxygen and was looking for a "real" bathroom. She reported her breathing was much better. PE at Discharge GENERAL: Obese female laying in bed in NAD. SKIN: Warm and dry without rash. Bruising over left wrist. HEENT: AT/NC. Pupils mildly dilated, equal and round and reactive to light. No scleral icterus or conjunctival injection. No nasal drainage. MMM. NECK: Supple without tender LAD. CARDIO: Tachycardic with a regular rhythm. No murmurs, rubs, or gallops appreciated. 2+ pedal pulses. RESP: Increased air movement compared to prior exam. Diffuse expiratory wheezing. Less pronounced compared to previous exam. GI: Abdomen soft, nontender, nondistended. No guarding or rebound. EXTREM: No LE edema. No calf tenderness. Negative Homans sign bilaterally. No palpable cords or signs of thrombophlebitis. NEURO: Awake and alert. Confusion appears resolved. Patient states mood is "good ". Hospital Course 56-year-old female with history of asthma admitted on 11/16/2016 with worsening shortness of breath and hypoxia. Required BiPAP on admission. Oxygen saturation down to the low 80s. VQ scan was ordered as patient had JEY and inability to lay prone. This showed intermediate to high probability of PE. Patient was given a heparin bolus and started on drip. Given morphine for chest pain. Also met sepsis criteria on admission with leukocytosis and chest x-ray showing bibasilar consolidations. Blood cultures and UA were ordered. Venous blood gas showed pH of 7.3 with a CO2 51 and O2 of 34. She was started on IV Azactam and Vancomycin, for coverage of hospital-acquired pneumonia (recent hospitalization) . As mentioned above, creatinine was elevated to 1.66 (baseline within normal limits). Was started on maintenance IV fluids. She was given breathing treatments and high-dose, IV steroids for asthma. Patient continued to show anxiety throughout her course. Psych was consulted. They recommended starting Seroquel. Steroids were also discontinued initially because of anxiety. Heparin drip was transitioned to by mouth Xarelto. Transitioned from IV antibiotics to by mouth Levaquin. Patient began to experience sedation during the day, which was thought to be related to Seroquel. Dosing was changed to at bedtime only. Patient continued to exhibit dyspnea throughout her course. Pulmonology was eventually consulted. They ordered CT scan of chest to rule out PE. Also recommended restarting IV steroids. CTA showed no evidence of PE. This was discussed with pulmonology, and they recommended discontinuing anticoagulation. Discharged to pulmonary rehabilitation facility on 11/24. After discussion with pulmonology, decision made to stop anticoagulation, given lack of evidence for PE on CTA. She was discharged on by mouth steroids. Patient failed O to walk test at time of discharge and was sent on with oxygen. Pt Condition on Discharge: Stable Discharge Disposition: Discharge to SNF Discharge Instructions DIET: Follow Instructions for: As Tolerated, No Restrictions Activities you can perform: Regular-No Restrictions Jarvis Miranda MD R3 Dec 14, 2016 11:05
[2016-12-22] MEDS ORDERED: LEVA0.637 INH (23:55)
[2016-12-23] MEDS ORDERED: LORA-392 PO (11:32)
[2016-12-28] MEDS ORDERED: NEUR300C PO (20:06)
[2016-12-28] MEDS ORDERED: HYDR-3533 PO (20:06)
[2017-01-12] MEDS ORDERED: CYCL5TAB PO (13:12)
[2017-01-16] MEDS ORDERED: LORA-392 PO (00:50)
[2017-01-19] MEDS ORDERED: NEUR300C PO (20:19)
[2017-01-26] MEDS ORDERED: HYDR-3533 PO (10:17)
[2017-02-03] MEDS ORDERED: CYCL5TAB PO (13:39)
[2017-02-03] MEDS ORDERED: PRED50 PO (13:40)
[2017-02-20] MEDS ORDERED: LORA-392 PO (15:46)
[2017-02-21] MEDS ORDERED: PRED20 PO (16:09)
[2017-02-21] MEDS ORDERED: BENZ100 PO (16:09)
[2017-02-28] MEDS ORDERED: HYDR-3533 PO (13:39)
== END 2016-11-24 14:06 | DRG 175 ==
LOC: NEPE 10:02 → NEDA 12:50 → NEDH 18:14 → HIME 20:50 → HOCB 11-17 15:18
PROVIDERS: ADMIT Family Medicine; ATTEND Family Medicine
DX: I26.99 Other pulmonary embolism without acute cor pulmonale (principal); J18.9 Pneumonia, unspecified organism; A41.9 Sepsis, unspecified organism; N17.9 Acute kidney failure, unspecified; E66.9 Obesity, unspecified; Z68.41 Body mass index [BMI] 40.0-44.9, adult; Y95 Nosocomial condition; F41.9 Anxiety disorder, unspecified; J45.909 Unspecified asthma, uncomplicated; Z79.52 Long term (current) use of systemic steroids; E78.5 Hyperlipidemia, unspecified; G89.29 Other chronic pain; M54.5 Low back pain; G62.9 Polyneuropathy, unspecified; G51.0 Bell's palsy; R00.0 Tachycardia, unspecified; Z85.3 Personal history of malignant neoplasm of breast; Z23 Encounter for immunization
CPT/HCPCS: 71010; 71275; 72110; 78582; 80048; 80307; 81001; 82533; 82805; 83605; 83735; 83880; 84484; 85007; 85025; 85027; 85610; 85730; 87040; 87070; 87205; 87641; 90686; 93005; 93306; 93970; 94150; 94620; 94640; 94664; 94667; 94668; 94799; A9540; A9567; J1630; J1644; J1650; J2060; J2270; J2920; J2930; J3370; J7030; J7050; J7512; J7613; J7626; Q2038; Q9967

== ENCOUNTER 2017-05-15 13:32 | Emergency (ER) | payer OTHER ==
[~2017-05-15] VITALS: Ht 152.4 cm; Wt 80.0 kg
[~2017-05-15 13:32] MED LIST changes: -ALBU0.08 NEB; +BUDE0.5S NEB; +CITA20TA4 PO; -DIAZ5TAB PO; +GABA600T PO; +LEVA0.637 INH; -LEVA750T PO; +LIDO1PAD52 TOPICAL; +MELA1TAB18 PO; +MONT10TA4 PO; +NEBULIZER1 MI1; -NEUR400C PO; +OFLO0.3D9 RIGHT EAR; +OXYGENTANK NAS.CANULA; +PANT40TA3 PO; -PRED20 PO; -SYMB160A INH
[2017-05-15 13:37] VITALS: BP 125/82; PULSE 90; RESP 20; TEMP 98.2; O2SAT 92
--- NOTE | 2017-05-15 13:58 | PD ---
HPI . neck pain s/p slip and fall Chief Complaint: Fall Time Seen by Provider: 13:58 Travel History International Travel<30 days: No Contact w/Intl Traveler<30days: No Traveled to known affect area: No History of Present Illness HPI 56 yr old female here with c/o neck pain s/p slip and fall yesterday. She says she didn't initially think much of it, but then started having some worsening pain and decided to come in for evaluation. She reports a slip and fall and no syncope. There was no head injury or LOC. She has hx of asthma, neuropathy and chronic back pain. PFSH Past Medical History 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) Cardiovascular Problems: Yes High Cholesterol: Yes Chemotherapy: Yes (CA RIGHT BREAST) Chest Pain: No Congestive Heart Failure: No COPD: No Cerebrovascular Accident: No Diabetes: Yes Diminished Hearing: No Endocrine: No Gastrointestinal Disorders: No GERD: Yes Genitourinary: No Hiatal Hernia: No Hypertension: No Immune Disorder: No Implanted Vascular Access Dvce: No Musculoskeletal: Yes (ATHRITIS) Neurologic: No Psychiatric: No Reproductive: No Respiratory: Yes (COPD) Immunizations Current: Yes Pneumonia: Yes Radiation Therapy: Yes Sleep Apnea: No Thyroid Disease: No Ulcer: No Menopausal: Yes Past Surgical History Abdominal Surgery: Yes (HERNIA REPAIR) Hysterectomy: No Other Surgery: Yes (right lumpectomy) Social History Alcohol Use: No Tobacco Use: No Substance Use: No Allergies-Medications (Allergen,Severity, Reaction): Coded Allergies: Sulfa (Sulfonamide Antibiotics) (Unverified Allergy, Severe, SOB, 04/25/17) rash all over body doxycycline (Unverified Allergy, Severe, ANAPHALACTIC, 04/25/17) minocycline (Unverified Allergy, Intermediate, Rash, 04/25/17) penicillin G (Unverified Allergy, Intermediate, Rash, 04/25/17) tigecycline (Unverified Allergy, Intermediate, Rash, 04/25/17) Reported Meds & Prescriptions Reported Meds & Active Scripts Active Flexeril (Cyclobenzaprine HCl) 5 Mg Tab 5 Mg PO TID Gabapentin 600 Mg Tab 600 Mg PO TID Budesonide Neb 0.5 Mg/2 Ml Neb 0.5 Mg NEB Q12HR NEB Lidocaine Patch 12 HR (Lidocaine) 5 % Patch 1 Patch TOPICAL Q12HR Remove patch after 12 hours Levalbuterol Neb (Levalbuterol HCl) 0.63 Mg/3 Ml Neb 0.63 Mg INH QID Proair Hfa 8.5 GM Inh (Albuterol Sulfate) 90 Mcg/Act Aer 1 Puff INH Q6HR PRN 108 mcg/actuation Nebulizer 1 Mis Mis 1 Ea .ROUTE DIRECTED Pantoprazole (Pantoprazole Sodium) 40 Mg Tab 40 Mg PO DAILY Adjust Aluminum Cane/Round (Device) 1 Mis Mis 1 Ea .ROUTE DIRECTED Reported Simvastatin 40 Mg Tab 40 Mg PO DAILY Review of Systems General / Constitutional: No: Fever Eyes: No: Visual changes HENT: Positive: Neck Pain, No: Headaches Cardiovascular: No: Chest Pain or Discomfort Respiratory: No: Shortness of Breath Gastrointestinal: No: Abdominal Pain Genitourinary: No: Dysuria Musculoskeletal: No: Pain Skin: No Rash Neurologic: No: Weakness Psychiatric: No: Depression Endocrine: No: Polydipsia Hematologic/Lymphatic: No: Easy Bruising Physical Exam Narrative GENERAL: AAO x 3, no acute distress, Well-nourished, well-developed patient. SKIN: Warm and dry. No visible rashes or bruising. HEAD: Normocephalic and atraumatic. EYES: No scleral icterus. No injection or drainage. EOM intact, PERRLA ENT: No nasal drainage noted. Mucous membranes pink. Airway patent. NECK: Supple, trachea midline. No JVD. Tenderness to the mid C-spine. no step off CARDIOVASCULAR: Regular rate and rhythm without murmurs, gallops, or rubs. RESPIRATORY: Breath sounds equal bilaterally. No accessory muscle use. No rhonchi or rales. GASTROINTESTINAL: Abdomen soft, non-tender, nondistended. no rebound or guarding EXTREMITIES: No cyanosis or edema. BACK: Nontender without obvious deformity. No CVA tenderness. 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 Data Data Last Documented VS Vital Signs Date Time Temp Pulse Resp B/P (MAP) Pulse Ox O2 Delivery O2 Flow Rate FiO2 05/15/17 13:37 98.2 90 20 125/82 (96) 92 Room Air Orders Orders Ct Cerv Spine W/O Contrast (05/15/17 14:03) Oxycodone-Acetamin 5-325 Mg (Percocet (05/15/17 14:15) MDM Medical Decision Making Medical Screen Exam Complete: Yes Emergency Medical Condition: Yes Medical Record Reviewed: Yes Differential Diagnosis cervical muscle strain, less likely c spine fracture, less likely head injury Narrative Course 56 yr old female here with c/o neck pain s/p fall yesterday. Exam is remarkable for tenderness to the c spine. CT ordered to r/o bony abn. Percocet provided. Last Impressions Cervical Spine CT 05/15/17 1403 Signed Impressions: Service Date/Time: Monday, May 15, 2017 15:45 - CONCLUSION: Degenerative changes innominate facets without fracture. Ellis Jimenez MD FACR Discussed findings with patient. She is requesting refill on her pain meds. I advised her that she will need to see her PCP. She has muscle relaxers on board, which is what I would prescribed for this cervical strain/neck pain. I advised PRN tylenol or motrin Diagnosis Primary Impression: Neck pain Patient Instructions: General Instructions Additional Instructions: Continue your home medications. You can use tylenol or ibuprofen as needed for additional pain relief. Med/Other Pt SpecificInfo: No Change to Meds Disposition: 01 DISCHARGE HOME Condition: Stable Eliza Christian May 15, 2017 13:58
[2017-05-15] MEDS ORDERED: oxyCODONE/ACETAMINOPHEN 5 MG/325 MG TAB PO ONE (14:15)
--- NOTE | 2017-05-15 16:18 | RADRPT ---
EXAM DATE/TIME: 05/15/2017 15:45 [facility] COMPARISON: CT CERVICAL SPINE W/O CONTRAST, November 07, 2016, 23:52. INDICATIONS : Trauma, fall. RADIATION DOSE: 24.33 CTDIvol (mGy) MEDICAL HISTORY : None SURGICAL HISTORY : None. ENCOUNTER: Initial ACUITY: 1 day PAIN SCALE: 4/10 LOCATION: neck TECHNIQUE: Volumetric scanning of the cervical spine was performed. Multiplanar reconstructions in the sagittal, coronal and oblique axial planes were performed. Using automated exposure control and adjustment o f the mA and/or kV according to patient size, radiation dose was kept as low as reasonably achievable to obtain optimal diagnostic quality images. DICOM format image data is available electronically f or review and comparison. FINDINGS: VERTEBRAE: Normal vertebral body height. ALIGNMENT: No evidence of subluxation. C2-C3: The bony spinal canal is normal in size. No evidence of disc bulge or herniation. The neural forami na are bilaterally patent. C3-C4: The bony spinal canal is normal in size. No evidence of disc bulge or herniation. The neural forami na are bilaterally patent. C4-C5: Moderate facet disease is present on the left with moderate neural foramen encroachment. C5-C6: Mild facet disease is present worse on the left. C6-C7: The bony spinal canal is normal in size. No evidence of disc bulge or herniation. The neural forami na are bilaterally patent. C7-T1: The bony spinal canal is normal in size. No evidence of disc bulge or herniation. The neural forami na are bilaterally patent. CONCLUSION: Degenerative changes innominate facets without fracture. Ellis Jimenez MD FACR on May 15, 2017 at 16:15 Board Certified Radiologist. This report was verified electronically.
[2017-05-16] MEDS ORDERED: CYCL5TAB PO (17:21)
[2017-05-16] MEDS ORDERED: OXYC1TAB63 PO (17:21)
[2017-05-19] MEDS ORDERED: TIZA2TAB PO (10:36)
[2017-05-19] MEDS ORDERED: SYMB160A INH (10:42)
[2017-05-31] MEDS ORDERED: METF500T PO (15:39)
[2017-06-09] MEDS ORDERED: HYDR50TA94 PO (17:12)
[2017-06-15] MEDS ORDERED: METF1000 PO (14:10)
[2017-06-15] MEDS ORDERED: TIZA2TAB PO (14:14)
[2017-06-15] MEDS ORDERED: OXYC1TAB63 PO (14:14)
[2017-06-15] MEDS ORDERED: HYDR50TA94 PO (14:14)
[2017-06-22] MEDS ORDERED: LIDO1PAD52 TOPICAL (10:40)
== END 2017-05-15 16:49 | disposition home or self-care (01) ==
LOC: NEPD 13:32
DX: M54.2 Cervicalgia (principal); W01.0XXA Fall on same level from slipping, tripping and stumbling without subsequent striking against object, initial encounter
CPT/HCPCS: 72125

== ENCOUNTER 2017-07-25 12:36 | Emergency (ER) | payer OTHER ==
[~2017-07-25 12:36] MED LIST changes: -BUDE0.5S NEB; -CITA20TA4 PO; -CYCL5TAB PO; +FLUT1SPR5; +HYDR50TA94 PO; -MELA1TAB18 PO; +METF1000 PO; -MONT10TA4 PO; -OFLO0.3D9 RIGHT EAR; -OXYGENTANK NAS.CANULA; -PANT40TA3 PO; -SIMV40TA PO; +SYMB160A INH; +TIZA2TAB PO
[2017-07-25 12:39] VITALS: BP 146/75; PULSE 85; RESP 16; TEMP 98.4; O2SAT 95
--- NOTE | 2017-07-25 14:26 | PD ---
HPI Chief Complaint: Laceration/Skin Injury Time Seen by Provider: 14:05 Travel History International Travel<30 days: No Contact w/Intl Traveler<30days: No Traveled to known affect area: No History of Present Illness HPI 56 year female presents to the emergency department complaining of a laceration to the left palmar aspect of the hand. She is right-handed. She was trying to clean out a jar of wax, missed her jar and punctured her hand. Says that all her fingers are numb and has shooting pain to her distal fingers from her wrist. Patient does have full range of motion however is painful to flex her fingers. Patient was able to control bleeding on her own. Says she has never had this before. Pt denies any other pain. Denies shortness of breath, chest pain, nausea, diaphoresis. PFSH Past Medical History 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) Cardiovascular Problems: Yes High Cholesterol: Yes Chemotherapy: Yes (CA RIGHT BREAST) Chest Pain: No Congestive Heart Failure: No COPD: Yes Cerebrovascular Accident: No Diabetes: Yes Diminished Hearing: No Endocrine: No Gastrointestinal Disorders: Yes (hernia ) GERD: Yes Genitourinary: No Hiatal Hernia: No Hypertension: No Immune Disorder: No Implanted Vascular Access Dvce: No Musculoskeletal: Yes (ATHRITIS) Neurologic: No Psychiatric: No Reproductive: No Respiratory: Yes (COPD) Immunizations Current: Yes Pneumonia: Yes Radiation Therapy: Yes Sleep Apnea: No Thyroid Disease: No Ulcer: No Menopausal: Yes Past Surgical History Abdominal Surgery: Yes (HERNIA REPAIR) Hysterectomy: No Other Surgery: Yes (right lumpectomy) Social History Alcohol Use: No Tobacco Use: No Substance Use: No Allergies-Medications (Allergen,Severity, Reaction): Coded Allergies: Sulfa (Sulfonamide Antibiotics) (Verified Allergy, Severe, SOB, 07/13/17) rash all over body doxycycline (Verified Allergy, Severe, ANAPHALACTIC, 07/13/17) minocycline (Verified Allergy, Intermediate, Rash, 07/13/17) penicillin G (Verified Allergy, Intermediate, Rash, 07/13/17) tigecycline (Verified Allergy, Intermediate, Rash, 07/13/17) Reported Meds & Prescriptions Reported Meds & Active Scripts Active Zofran (Ondansetron HCl) 4 Mg Tab 4 Mg PO Q8HR PRN 7 Days Cephalexin 500 Mg Tab 500 Mg PO Q8H 7 Days Oxycodone-Acetaminophen 5-325 mg Tab 1 Tab PO Q6H PRN Flonase Nasal Hollister (Fluticasone Nasal Hollister) 50 Mcg/Act Hollister 50 Mcg NA BID right nostril two times per day Hydroxyzine HCl 50 Mg Tab 50 Mg PO TID PRN Tizanidine (Tizanidine HCl) 2 Mg Tab 2 Mg PO TID Lidocaine Patch 12 HR (Lidocaine) 5 % Patch 1 Patch TOPICAL Q12HR Remove patch after 12 hours Metformin (Metformin HCl) 1,000 Mg Tab 1,000 Mg PO BIDPC Symbicort Inh (Budesonide/Formoterol Fumarate) 160-4.5 Mcg/Act Aero 2 Puff INH Q12HR Gabapentin 600 Mg Tab 600 Mg PO TID Levalbuterol Neb (Levalbuterol HCl) 0.63 Mg/3 Ml Neb 0.63 Mg INH QID Proair Hfa 8.5 GM Inh (Albuterol Sulfate) 90 Mcg/Act Aer 1 Puff INH Q6HR PRN 108 mcg/actuation Nebulizer 1 Mis Mis 1 Ea .ROUTE DIRECTED Adjust Aluminum Cane/Round (Device) 1 Mis Mis 1 Ea .ROUTE DIRECTED Review of Systems Except as stated in HPI: all other systems reviewed are Neg Physical Exam Narrative GENERAL: Well-nourished, well-developed patient, anxious SKIN: Focused skin assessment warm/dry. HEAD: Normocephalic. EYES: No scleral icterus. No injection or drainage. NECK: Supple, trachea midline. No JVD or lymphadenopathy. CARDIOVASCULAR: Regular rate and rhythm without murmurs, gallops, or rubs. RESPIRATORY: Breath sounds equal bilaterally. No accessory muscle use. MUSCULOSKELETAL: No cyanosis, or edema. Left hand-palmar aspect middle of hand- small 1 cm laceration approximately 3 mm depth. No involvement of deep structures. Neurovascularly intact. Obvious atrophy of muscles from left hand. Negative tinnels. BACK: Nontender without obvious deformity. No CVA tenderness. Data Data Last Documented VS Vital Signs Date Time Temp Pulse Resp B/P (MAP) Pulse Ox O2 Delivery O2 Flow Rate FiO2 07/25/17 16:04 07/25/17 12:39 98.4 85 16 95 Orders Orders Hand, Complete ([id number]) (07/25/17 ) Wound Care (07/25/17 15:35) Ibuprofen (Motrin) (07/25/17 15:45) Ed Discharge Order (07/25/17 15:41) MDM Medical Decision Making Medical Screen Exam Complete: Yes Emergency Medical Condition: Yes Differential Diagnosis Left hand laceration versus avulsion versus abrasion Narrative Course 56 year female presents to the emergency department complaining of a laceration to the left palmar aspect of the hand. She is right-handed. She was trying to clean out a jar of wax, missed her jar and punctured her hand. Says that all her fingers are numb and has shooting pain to her distal fingers from her wrist. Patient does have full range of motion however is painful to flex her fingers. Patient was able to control bleeding on her own. Says she has never had this before. Pt denies any other pain. Denies shortness of breath, chest pain, nausea, diaphoresis. Vital Signs stable. Physical exam- laceration to center of palm- bleeding controlled. No tendon or ligamental involvement. Atrophy of the hand musculature. The location and description of her tingling is more consistent with a carpel tunnel syndrome or another neuropathy. It is possible she caused irritation of the nerves however, her symptomatology suggested other etiology. Laceration repair completed. Pt rather histrionic and procedure was rather challenging secondary to patient apparent low tolerance for pain and multiple, repetitive questions regarding the repair. I did explain the risk vs benefits of sutures vs steristrips and pt agreed that sutures were necessary. Antibiotics prophylactically. Advised her to follow up with PCP within a few days. Wound Care instructions. Suture removal instructions. Procedures Procedure Narrative LACERATION LOCATION: Left palmar aspect of hand LENGTH: 1 cm NUMBER OF STITCHES/KIRBY: 2 REPAIR: The area of the laceration was prepped with Betadine and sterilely draped. The laceration was infiltrated with 1% lidocaine without epi. The wound was copiously irrigated and explored without evidence of foreign body, tendon injury or neurovascular injury. The wound was closed using 6-0 Prolene. This was a single layer repair. A sterile dressing was applied. The patient was advised to keep the dressing clean and dry. Patient tolerated the procedure well. Diagnosis Primary Impression: Hand laceration Qualified Codes: S61.412A - Laceration without foreign body of left hand, initial encounter Referrals: Primary Care Physician Additional Instructions: Follow-up a primary care physician within 2 days. Have the sutures removed in 7-10 days. Do not remove Steri-Strips. Keep area clean and dry You may use Tylenol or Motrin per package instructions for pain relief Scripts Ondansetron (Zofran) 4 Mg Tab 4 MG PO Q8HR Y for NAUSEA OR VOMITING for 7 Days, TAB 0 Refills Prov: Saran Ricks MD 07/25/17 Cephalexin (Cephalexin) 500 Mg Tab 500 MG PO Q8H for Infection for 7 Days, #21 TAB 0 Refills Prov: Saran Ricks MD 07/25/17 Disposition: 01 DISCHARGE HOME Condition: Stable Bryanna Simmons Jul 25, 2017 14:26
--- NOTE | 2017-07-25 14:27 | RADRPT ---
EXAM DATE/TIME: 07/25/2017 13:38 [facility] COMPARISON: No previous studies available for comparison. INDICATIONS : Left hand pain and laceration at metacarpal area. Patient states she has numbness at laceration area and base of fingers. MEDICAL HISTORY : Carcinoma, breast. Diabetes mellitus type II. Gastroesophageal reflux disease. Cardiovascular dis ease. Chronic obstructive pulmonary disease SURGICAL HISTORY : Hernia. ENCOUNTER: Initial ACUITY: 1 day PAIN SCORE: 10/10 LOCATION: Left Hand/palm. FINDINGS: Three view examination of the left hand demonstrates no soft tissue swelling, dislocation, or fractur e. The carpal bones appear intact. The interphalangeal and metacarpophalangeal joints are intact. Bony mineralization is normal. CONCLUSION: No fracture. Sal Omalley MD on July 25, 2017 at 14:21 Board Certified Radiologist. This report was verified electronically.
[2017-07-25] MEDS ORDERED: ZOFR4TAB PO (15:40)
[2017-07-25] MEDS ORDERED: CEPH500T PO (15:40)
[2017-07-25] MEDS ORDERED: IBUPROFEN 600 MG TAB PO ONE (15:45)
[2017-07-28] MEDS ORDERED: TIZA2TAB PO (14:57)
== END 2017-07-25 16:04 | disposition home or self-care (01) ==
LOC: NEPK 12:36
DX: S61.412A Laceration without foreign body of left hand, initial encounter (principal); M19.90 Unspecified osteoarthritis, unspecified site; E78.00 Pure hypercholesterolemia, unspecified; J44.9 Chronic obstructive pulmonary disease, unspecified; E11.9 Type 2 diabetes mellitus without complications; K21.9 Gastro-esophageal reflux disease without esophagitis; W25.XXXA Contact with sharp glass, initial encounter; Z79.899 Other long term (current) drug therapy; Z88.2 Allergy status to sulfonamides
CPT/HCPCS: 12001; 73130